=== PATIENT | female | born 1950 | race Caucasian/White ===

== ENCOUNTER → 2016-10-05 | Outpatient (CLI) | payer MEDICARE, BC ==
--- NOTE | 2016-10-08 09:25 | XR ---
EXAMINATION TYPE: XR cervical spine comp DATE OF EXAM: 10/05/2016 9:12 AM COMPARISON: NONE HISTORY: Chronic neck pain TECHNIQUE: Four views are submitted. FINDINGS: The odontoid is intact. There are no compression deformities. The prevertebral soft tissue structur es are within normal limits. Calcification soft tissue the left neck likely related carotid artery. There is moderate to severe degenerative disc disease at C5-6 and C6-C7. Facet arthropathy at levels C3-T1. Foraminal encroachment C5-C6 bilaterally. IMPRESSION: 1. Multilevel degenerative disc disease.
== END | disposition home or self-care (01) ==
LOC: RADXRYALE 08:57
PROVIDERS: ATTEND Family Medicine
DX: M50.30 Other cervical disc degeneration, unspecified cervical region (principal)
CPT/HCPCS: 72050

== ENCOUNTER 2021-08-30 05:02 | Inpatient (IN) | payer MEDICARE, BC ==
[2021-08-30 05:14] LABS: Glucose,Whole Blood 238 mg/dL (75-99)
[2021-08-30] MEDS ORDERED: ACETAMINOPHEN TAB 325 MG TAB PO STA (05:21)
--- NOTE | 2021-08-30 05:26 | ED ---
Altered Mental Status HPI - General Stated Complaint: Possible Stroke Time Seen by Provider: 08/30/21 05:14 Source: patient, EMS Mode of arrival: EMS Limitations: altered mental status - History of Present Illness Initial Comments: This patient is a 71-year-old woman transferred here from retirement by ambulance to be evaluated for altered mental status. Patient reportedly had last been checked around midnight. When she was checked this morning, it appeared that the patient had vomited during night, and they felt that she was initially not responding. On arrival here, when I asked the patient if she is having pain or dyspnea she states no to both of these. She did complain of some back pain and requested Tylenol. She was denying nausea on arrival. She could recognize that she was in the hospital. The history is otherwise limited. MD Complaint: altered mental status -: hour(s) Associated Symptoms: nausea/vomiting - Related Data Allergies Allergy/AdvReac Type Severity Reaction Status Date / Time codeine Allergy Unknown Verified 08/30/21 06:01 morphine Allergy Unknown Verified 08/30/21 06:01 Penicillins Allergy Unknown Verified 08/30/21 06:01 Review of Systems ROS Statement: Those systems with pertinent positive or pertinent negative responses have been documented in the HPI. ROS Other: All systems not noted in ROS Statement are negative. Limitations: ROS unobtainable due to patients medical condition (Altered mental status) Respiratory: Denies: dyspnea Cardiovascular: Denies: chest pain Gastrointestinal: Reports: as per HPI, vomiting. Denies: abdominal pain Musculoskeletal: Reports: back pain Neurological: Denies: headache, weakness Past Medical History Past Medical History: CVA/TIA, Diabetes Mellitus Additional Past Medical History / Comment(s): hx of aphasia History of Any Multi-Drug Resistant Organisms: None Reported Past Psychological History: No Psychological Hx Reported Smoking Status: Never smoker Past Alcohol Use History: None Reported Past Drug Use History: None Reported General Exam Limitations: altered mental status General appearance: alert, in no apparent distress Head exam: Present: atraumatic, normocephalic Eye exam: Present: normal appearance, PERRL, EOMI. Absent: scleral icterus, conjunctival injection ENT exam: Present: mucous membranes dry Neck exam: Present: normal inspection, full ROM. Absent: tenderness Respiratory exam: Present: normal lung sounds bilaterally. Absent: respiratory distress, wheezes, rales, rhonchi, stridor Cardiovascular Exam: Present: regular rate, normal rhythm, normal heart sounds. Absent: systolic murmur, diastolic murmur, rubs, gallop GI/Abdominal exam: Present: soft. Absent: distended, tenderness, guarding, rebound, rigid, mass Extremities exam: Present: normal inspection, normal capillary refill. Absent: pedal edema, calf tenderness Neurological exam: Present: alert, other (The patient is moving 4 extremities symmetrically area no sensory deficit to light touch exam.). Absent: oriented X3 (Patient is oriented to person and recognizes that she is in the hospital. Could not state the date.) Skin exam: Present: warm, dry, intact, normal color. Absent: rash Course Vital Signs 08/30/21 05:17 Temperature 97.7 F Pulse Rate 112 H Respiratory 16 Rate Blood Pressure 118/59 O2 Sat by Pulse 98 Oximetry Medical Decision Making - Lab Data Result diagrams: 08/30/21 05:28 Lab Results 08/30/21 08/30/21 08/30/21 Range/Units 05:12 05:28 05:28 Sodium 134 L (137-145) mmol/L Potassium 5.9 H (3.5-5.1) mmol/L Chloride 102 (98-107) mmol/L Carbon Dioxide 15 L (22-30) mmol/L Anion Gap 17 mmol/L BUN 52 H (7-17) mg/dL Creatinine 4.84 H (0.52-1.04) mg/dL Est GFR (CKD-EPI)AfAm 10 (>60 ml/min/1.73 sqM) Est GFR (CKD-EPI)NonAf 8 (>60 ml/min/1.73 sqM) Glucose 262 H (74-99) mg/dL POC Glucose (mg/dL) 238 H (75-99) mg/dL POC Glu [employer] ID Olya Almaraz Calcium 9.5 (8.4-10.2) mg/dL Total Bilirubin 0.7 (0.2-1.3) mg/dL AST 24 (14-36) U/L ALT 13 (4-34) U/L Alkaline Phosphatase 167 H (38-126) U/L Troponin I <0.012 (0.000-0.034) ng/mL Total Protein 7.0 (6.3-8.2) g/dL Albumin 3.3 L (3.5-5.0) g/dL Coronavirus (PCR) (Not Detectd) 08/30/21 Range/Units 05:28 Sodium (137-145) mmol/L Potassium (3.5-5.1) mmol/L Chloride (98-107) mmol/L Carbon Dioxide (22-30) mmol/L Anion Gap mmol/L BUN (7-17) mg/dL Creatinine (0.52-1.04) mg/dL Est GFR (CKD-EPI)AfAm (>60 ml/min/1.73 sqM) Est GFR (CKD-EPI)NonAf (>60 ml/min/1.73 sqM) Glucose (74-99) mg/dL POC Glucose (mg/dL) (75-99) mg/dL POC Glu [employer] ID Calcium (8.4-10.2) mg/dL Total Bilirubin (0.2-1.3) mg/dL AST (14-36) U/L ALT (4-34) U/L Alkaline Phosphatase (38-126) U/L Troponin I (0.000-0.034) ng/mL Total Protein (6.3-8.2) g/dL Albumin (3.5-5.0) g/dL Coronavirus (PCR) Not Detected (Not Detectd) - EKG Data -: EKG Interpreted by Me EKG shows normal: sinus rhythm, axis (Normal), intervals (Normal), QRS complexes (Old inferior infarct.), ST-T waves (Normal) Rate: tachycardia (Rate 112 bpm) Interpretation: LVH (Voltage criteria), other (Possible old anterior infarct.) Disposition Clinical Impression: Altered mental status, Acute kidney injury Disposition: ADMITTED IP TO THIS [facility] Condition: Serious Instructions (If sedation given, give patient instructions): Altered Mental Status (ED) Is patient prescribed a controlled substance at d/c from ED?: No Referrals: Ondina Alvares DO [Primary Care Provider] - 1-2 days
--- NOTE | 2021-08-30 05:50 | XR ---
EXAMINATION TYPE: XR chest 1V portable DATE OF EXAM: 08/30/2021 COMPARISON: NONE HISTORY: Altered mental status TECHNIQUE: Single view FINDINGS: There is poor inspiration and elevation of the diaphragms. There is no heart failure. Lungs are clear consolidation. There are chest leads. IMPRESSION: Poor inspiration. No heart failure.
--- NOTE | 2021-08-30 05:53 | CT ---
EXAMINATION TYPE: CT brain wo con DATE OF EXAM: 08/30/2021 COMPARISON: None HISTORY: AMS. rule out stroke. no prior on PACS CT DLP: 1078.4 mGycm Automated exposure control for dose reduction was used. There is cerebral cortical atrophy. There is no mass effect nor midline shift. There is no sign of in tracranial hemorrhage. There is 5 mm hypodensity anterior left internal capsule. Calvarium is intact. The skull base is intact. IMPRESSION: Cerebral atrophy. Small lacunar infarct left internal capsule. No acute abnormality.
[2021-08-30 06:08] LABS: Albumin 3.3 g/dL (3.5-5.0); Calcium 9.5 mg/dL (8.4-10.2); Potassium 5.9 mmol/L (3.5-5.1); Total Bilirubin 0.7 mg/dL (0.2-1.3)
[2021-08-30] MEDS ORDERED: NALOXONE 0.4 MG/ML 1 ML VIAL IV PRN (06:36)
[2021-08-30 06:39] LABS: HCT 35.5 % (34.0-46.0); HGB 11.4 gm/dL (11.4-16.0); MCH 29.5 pg (25.0-35.0); MCHC 32.1 g/dL (31.0-37.0); MCV 91.9 fL (80.0-100.0); Mean Platelet Volume 9.8; Platelet Count 399 k/uL (150-450); RBC 3.86 m/uL (3.80-5.40); RDW 15.5 % (11.5-15.5); WBC 26.7 k/uL (3.8-10.6)
[2021-08-30] MEDS ORDERED: ACETAMINOPHEN TAB 325 MG TAB PO PRN (06:42)
[2021-08-30] MEDS ORDERED: ONDANSETRON 4 MG/2 ML VIAL IVP PRN (06:42)
[2021-08-30] MEDS ORDERED: SODIUM CHLORIDE 0.9% 1,000 ML IV SCH (06:45)
[2021-08-30] MEDS ORDERED: SODIUM CHLORIDE 0.9% 1,000 ML IV ONE (06:50)
[2021-08-30 07:47] LABS: Band Neutrophils % 9 %; Lymphocytes # (M) 6.41 k/uL (1.0-4.8); Metamyelocytes # (M) 0.27 k/uL (0); Metamyelocytes % 1 %; Monocytes # (M) 0.53 k/uL (0-1.0); Neutrophils % (M) 66 %; Nucleated Red Blood Cells 0 /100 WBC (0-0); Total Cells Counted 200
[2021-08-30 07:48] LABS: Rouleaux Present
[2021-08-30 08:04] LABS: Appearance,Urine Turbid (Clear); Bacteria,Urine Occasional /hpf; Bilirubin,Urine Negative (Negative); Blood,Urine Large (Negative); Color,Urine Red; Glucose,Urine (UA) Negative (Negative); Ketones,Urine Trace (Negative); Leukocyte Esterase,Urine Large (Negative); Mucus,Urine Occasional /hpf; Nitrite,Urine Negative (Negative); PH, Urine 8.5 (5.0-8.0); Protein,Urine 3+ (Negative); RBC,Urine >182 /hpf (0-5); Specific Gravity,Urine 1.018 (1.001-1.035); Urobilinogen,Urine <2.0 mg/dL (<2.0); WBC,Urine 132 /hpf (0-5)
[2021-08-30] MEDS ORDERED: FAMOTIDINE 20 MG TAB PO SCH (09:00)
[2021-08-30] MEDS ORDERED: DEXTROSE 50% SYRINGE 50 ML IVP STA (12:06)
[2021-08-30] MEDS ORDERED: INSULIN REGULAR 100 UNIT/ML VIAL (IV) IV ONE (12:06)
[2021-08-30] MEDS ORDERED: SENNOSIDES 8.6 MG TAB PO PRN (12:06)
[2021-08-30] MEDS ORDERED: SODIUM BICARB 8.4% 50 ML SYR (1 MEQ/ML) IV STA (12:06)
--- NOTE | 2021-08-30 12:12 | P.NPCON ---
History of Present Illness - Reason for Consult acute renal failure - History of Present Illness Reason for consultation: Acute kidney injury History of present illness: 71-year-old female seen in renal consultation for acute kidney injury. Patient presents from an extended care facility due to altered mental status. Patient had episode of vomiting last night and was unresponsive and also seek recent to the hospital. She is currently resting in bed and is not a reliable historian. She is not answering questions. Creatinine was 4.84 on admission. Her creatinine in June 2020 was 1.0. Potassium was elevated at 5.9. Blood pressure is stable. No fever. She tested negative for coronavirus. Currently receiving normal saline at 130 mL an hour. She also received a liter bolus in the ER. She does have long-standing history of diabetes. She was also on losartan outpatient. She was on Lasix as well. I don't see any nonsteroidals in her home medication list. She currently has a Vargas catheter. Nonoliguric. Vital signs are stable. General: Resting in bed. HEENT: Head exam is unremarkable. LUNGS: Breath sounds decreased. HEART: Rate and Rhythm are regular. ABDOMEN: Soft, no distention. EXTREMITITES: 1+ edema. Past Medical History Past Medical History: Atrial Fibrillation, CVA/TIA, Diabetes Mellitus, Hypertension Additional Past Medical History / Comment(s): CVA with slight R sided weakness/past aphasia/dysphagia but staff at [facility] states this is not a current problem, IDDM type II, neuropathy bilateral feet, chronic cervical pain/DDD, back pain, UTIs, muscle weakness, past metabolic encephalopathy and acute kidney failure. History of Any Multi-Drug Resistant Organisms: None Reported Additional Past Surgical History / Comment(s): Gallbladder drain per pt. Past Anesthesia/Blood Transfusion Reactions: No Reported Reaction Smoking Status: Never smoker - Past Family History Mother Family Medical History: No Reported History Additional Family Medical History / Comment(s): Mother was healthy Father Family Medical History: Cancer Additional Family Medical History / Comment(s): Prostate cancer. Medications and Allergies Home Medications Medication Instructions Recorded Confirmed Type Acetaminophen [Tylenol] 325 mg PO TID@0700,1300,1900 08/30/21 08/30/21 History Aspirin 81 mg PO DAILY 08/30/21 08/30/21 History Atorvastatin [Lipitor] 40 mg PO HS@199908/30/21 08/30/21 History Cyanocobalamin [Vitamin B-12] 500 mcg PO DAILY 08/30/21 08/30/21 History Dermaceptin 1 applic TOPICAL TID 08/30/21 08/30/21 History Febuxostat [Uloric] 80 mg PO DAILY 08/30/21 08/30/21 History Ferrous Sulfate [Feosol] 325 mg PO DAILY 08/30/21 08/30/21 History Furosemide [Lasix] 20 mg PO DAILY@0700 08/30/21 08/30/21 History INSULIN ASPART (NovoLOG) [NovoLOG See Protocol SQ ACHS 08/30/21 08/30/21 History (formulary)] Insulin Detemir [Levemir Flextouch 15 units SQ DAILY 08/30/21 08/30/21 History Pen] Losartan Potassium [Cozaar] 100 mg PO DAILY 08/30/21 08/30/21 History Magnesium Hydroxide [Milk of 2,400 mg PO DAILY PRN 08/30/21 08/30/21 History Magnesia] Menthol [Biofreeze] 1 applic TOPICAL BID 08/30/21 08/30/21 History Metoprolol Tartrate [Lopressor] 50 mg PO TID@0700,1300,1900 08/30/21 08/30/21 History Pantoprazole Sodium [Protonix] 40 mg PO DAILY@0700 08/30/21 08/30/21 History Potassium Chloride [Klor-Con 10 ER] 10 meq PO DAILY@0700 08/30/21 08/30/21 History Povidone-Iodine [Betadine] 1 applic TOPICAL HS 08/30/21 08/30/21 History Prostat 30 ml PO DAILY 08/30/21 08/30/21 History Sennosides [Senna] 8.6 mg PO DAILY PRN 08/30/21 08/30/21 History amLODIPine [Norvasc] 10 mg PO HS@199908/30/21 08/30/21 History metFORMIN HCL [Glucophage] 1,000 mg PO BID@0700,1600 08/30/21 08/30/21 History Allergies Allergy/AdvReac Type Severity Reaction Status Date / Time codeine Allergy Unknown Verified 08/30/21 06:52 morphine Allergy Unknown Verified 08/30/21 06:52 Penicillins Allergy Unknown Verified 08/30/21 06:52 Physical Exam Vitals: Vital Signs Temp Pulse Pulse Resp BP BP Pulse Ox 08/30/21 09:06 97.9 F 101 H 18 141/74 97 08/30/21 08:00 108 H 18 130/83 98 08/30/21 07:16 106 H 16 130/70 96 08/30/21 05:17 97.7 F 112 H 16 118/59 98 Intake and Output 08/29/21 08/30/21 08/30/21 22:59 06:59 14:59 Output Total 800 Balance -800 Output: Urine 800 Uretheral (Vargas) 800 Other: Voiding Method Indwelling Catheter Weight 78 kg 78 kg Results - Lab Results Most recent lab results Calcium 9.5 mg/dL (8.4-10.2) 08/30/21 05:28 08/30/21 05:28 08/30/21 05:28 Assessment and Plan Plan: Assessment: 1. Acute kidney injury secondary to ATN secondary to hypovolemia from vomiting and use of losartan. Creatinine 4.84 on admission. Creatinine was 1.0 in Dece mber 2020. 2. Hyperkalemia secondary to acute kidney injury, metabolic acidosis and losartan. 3. Metabolic acidosis secondary to acute kidney injury and metformin. 4. Diabetes mellitus. 5. Pyuria. Plan: Stop normal saline. Start bicarb drip to be run at 75 mL an hour. 10 units IV regular insulin with an appendectomy D50 now. Repeat potassium level this afternoon. Continue to monitor renal function and urine output. Check renal ultrasound. 1 g Rocephin IV now. Defer further management to primary team. Follow-up cultures. Thank you for the consultation. I will continue to follow the patient with you during her hospital stay.
--- NOTE | 2021-08-30 13:49 | P.HPIM ---
History of Present Illness 71-year-old female came in with altered mental status found to have acute renal failure patient baseline creatinine is around 1 patient present creatinine is 4.84 patient had history of stroke in the past mostly bedbound. Patient has 1/5 strength in bilateral lower extremities. Patient has bilateral lower extremity edema. Echocardiogram is not available at this time and this hospital system. Patient also has admitted potassium. Patient is alert oriented times close to 2 when I evaluated the patient although she thought it's 2026. Patient is negative for COVID-19. Patient is receiving IV normal saline at 1 30 mL per ho ur. Patient had an episode of nausea and vomiting last night. Patient is on Lasix. Patient is not on any nonsteroidal anti-inflammatory medications. REVIEW OF SYSTEMS: Patient is not a reliable historian CONSTITUTIONAL: No fever, no malaise, no fatigue. HEENT: No recent visual problems or hearing problems. Denied any sore throat. CARDIOVASCULAR: No chest pain, orthopnea, PND, no palpitations, no syncope. PULMONARY: No shortness of breath, no cough, no hemoptysis. GASTROINTESTINAL: No diarrhea, no nausea, no vomiting, no abdominal pain. NEUROLOGICAL: No headaches, no weakness, no numbness. HEMATOLOGICAL: Denies any bleeding or petechiae. GENITOURINARY: Denies any burning micturition, frequency, or urgency. MUSCULOSKELETAL/RHEUMATOLOGICAL: Denies any joint pain, swelling, or any muscle pain. ENDOCRINE: Denies any polyuria or polydipsia. The rest of the 14-point review of systems is negative. PHYSICAL EXAMINATION: GENERAL: The patient is alert and oriented x3, not in any acute distress. Well developed, well nourished. HEENT: Pupils are round and equally reacting to light. EOMI. No scleral icterus. No conjunctival pallor. Normocephalic, atraumatic. No pharyngeal erythema. No thyromegaly. CARDIOVASCULAR: S1 and S2 present. No murmurs, rubs, or gallops. PULMONARY: Chest is clear to auscultation, no wheezing or crackles. ABDOMEN: Soft, nontender, nondistended, normoactive bowel sounds. No palpable organomegaly. MUSCULOSKELETAL: No joint swelling or deformity. EXTREMITIES: No cyanosis, clubbing, or pedal edema. NEUROLOGICAL: Gross neurological examination did not reveal any focal deficits. SKIN: No rashes. Assessment and plan -Acute to renal failure: Probably secondary to acute tubular Necrosis from hypovolemia. Patient does have proteinuria, nephrology was consulted and the ultrasound of the kidney was ordered. Patient creatinine is 4.84 and patient baseline is around 1. A she also had urinary retention placement of Vargas catheter yielded around 800 mL of bloody urine -Hyperkalemia secondary to renal failure and losartan losartan is being held at this time continue with IV fluids -Mild hematuria-Anion gap and non-anion gap metabolic acidosis secondary to acute renal failure, lactic acidosis from metformin which is being held And-type 2 diabetes mellitus: Patient will be started on sliding scale insulin -Possibly of urinary tract infection cannot be ruled out because of hematuria, significantly abnormal urine confusion and leukocytosis. Patient may have sepsis secondary to UTI -Leukocytosis appear to be secondary to urinary tract infection continue with Rocephin-Hyponatremia secondary to renal dysfunction -History of stroke with some baseline vascular dementia. -Generalized medical debility secondary to previous stroke patient is mostly bedbound and a long-term longterm resident -Hypertension DVT prophylaxis: Subcutaneous heparin Past Medical History Past Medical History: Atrial Fibrillation, CVA/TIA, Diabetes Mellitus, Hypertension Additional Past Medical History / Comment(s): CVA with slight R sided weakness/past aphasia/dysphagia but staff at [facility] states this is not a current problem, IDDM type II, neuropathy bilateral feet, chronic cervical pain/DDD, back pain, UTIs, muscle weakness, past metabolic encephalopathy and acute kidney failure. History of Any Multi-Drug Resistant Organisms: None Reported Additional Past Surgical History / Comment(s): Gallbladder drain per pt. Past Anesthesia/Blood Transfusion Reactions: No Reported Reaction Smoking Status: Never smoker - Past Family History Mother Family Medical History: No Reported History Additional Family Medical History / Comment(s): Mother was healthy Father Family Medical History: Cancer Additional Family Medical History / Comment(s): Prostate cancer. Medications and Allergies Home Medications Medication Instructions Recorded Confirmed Type Acetaminophen [Tylenol] 325 mg PO TID@0700,1300,1900 08/30/21 08/30/21 History Aspirin 81 mg PO DAILY 08/30/21 08/30/21 History Atorvastatin [Lipitor] 40 mg PO HS@199908/30/21 08/30/21 History Cyanocobalamin [Vitamin B-12] 500 mcg PO DAILY 08/30/21 08/30/21 History Dermaceptin 1 applic TOPICAL TID 08/30/21 08/30/21 History Febuxostat [Uloric] 80 mg PO DAILY 08/30/21 08/30/21 History Ferrous Sulfate [Feosol] 325 mg PO DAILY 08/30/21 08/30/21 History Furosemide [Lasix] 20 mg PO DAILY@0700 08/30/21 08/30/21 History INSULIN ASPART (NovoLOG) [NovoLOG See Protocol SQ ACHS 08/30/21 08/30/21 History (formulary)] Insulin Detemir [Levemir Flextouch 15 units SQ DAILY 08/30/21 08/30/21 History Pen] Losartan Potassium [Cozaar] 100 mg PO DAILY 08/30/21 08/30/21 History Magnesium Hydroxide [Milk of 2,400 mg PO DAILY PRN 08/30/21 08/30/21 History Magnesia] Menthol [Biofreeze] 1 applic TOPICAL BID 08/30/21 08/30/21 History Metoprolol Tartrate [Lopressor] 50 mg PO TID@0700,1300,1900 08/30/21 08/30/21 History Pantoprazole Sodium [Protonix] 40 mg PO DAILY@0700 08/30/21 08/30/21 History Potassium Chloride [Klor-Con 10 ER] 10 meq PO DAILY@0700 08/30/21 08/30/21 History Povidone-Iodine [Betadine] 1 applic TOPICAL HS 08/30/21 08/30/21 History Prostat 30 ml PO DAILY 08/30/21 08/30/21 History Sennosides [Senna] 8.6 mg PO DAILY PRN 08/30/21 08/30/21 History amLODIPine [Norvasc] 10 mg PO HS@199908/30/21 08/30/21 History metFORMIN HCL [Glucophage] 1,000 mg PO BID@0700,1600 08/30/21 08/30/21 History Allergies Allergy/AdvReac Type Severity Reaction Status Date / Time codeine Allergy Unknown Verified 08/30/21 06:52 morphine Allergy Unknown Verified 08/30/21 06:52 Penicillins Allergy Unknown Verified 08/30/21 06:52 Physical Exam Vitals: Vital Signs Temp Pulse Pulse Resp BP BP Pulse Ox 08/30/21 09:06 97.9 F 101 H 18 141/74 97 08/30/21 08:00 108 H 18 130/83 98 08/30/21 07:16 106 H 16 130/70 96 08/30/21 05:17 97.7 F 112 H 16 118/59 98 Intake and Output 08/29/21 08/30/21 08/30/21 22:59 06:59 14:59 Output Total 800 Balance -800 Output: Urine 800 Uretheral (Vargas) 800 Other: Voiding Method Indwelling Catheter Weight 78 kg 78 kg Results CBC & Chem 7: 08/30/21 05:28 08/30/21 05:28 Labs: Abnormal Lab Results - Last 24 Hours (Table) 08/30/21 08/30/21 08/30/21 Range/Units 05:12 05:28 05:28 WBC 26.7 H (3.8-10.6) k/uL Neutrophils # (Manual) 20.00 H (1.3-7.7) k/uL Lymphocytes # (Manual) 6.41 H (1.0-4.8) k/uL Metamyelocytes # (Man) 0.27 H (0) k/uL Sodium 134 L (137-145) mmol/L Potassium 5.9 H (3.5-5.1) mmol/L Carbon Dioxide 15 L (22-30) mmol/L BUN 52 H (7-17) mg/dL Creatinine 4.84 H (0.52-1.04) mg/dL Glucose 262 H (74-99) mg/dL POC Glucose (mg/dL) 238 H (75-99) mg/dL Osmolality (280-301) mosm/kg Alkaline Phosphatase 167 H (38-126) U/L Albumin 3.3 L (3.5-5.0) g/dL Urine Appearance (Clear) Urine pH (5.0-8.0) Urine Protein (Negative) Urine Ketones (Negative) Urine Blood (Negative) Ur Leukocyte Esterase (Negative) Urine RBC (0-5) /hpf Urine WBC (0-5) /hpf Urine Bacteria (None) /hpf Urine Mucus (None) /hpf 08/30/21 08/30/21 Range/Units 05:28 07:31 WBC (3.8-10.6) k/uL Neutrophils # (Manual) (1.3-7.7) k/uL Lymphocytes # (Manual) (1.0-4.8) k/uL Metamyelocytes # (Man) (0) k/uL Sodium (137-145) mmol/L Potassium (3.5-5.1) mmol/L Carbon Dioxide (22-30) mmol/L BUN (7-17) mg/dL Creatinine (0.52-1.04) mg/dL Glucose (74-99) mg/dL POC Glucose (mg/dL) (75-99) mg/dL Osmolality 307 H (280-301) mosm/kg Alkaline Phosphatase (38-126) U/L Albumin (3.5-5.0) g/dL Urine Appearance Turbid H (Clear) Urine pH 8.5 H (5.0-8.0) Urine Protein 3+ H (Negative) Urine Ketones Trace H (Negative) Urine Blood Large H (Negative) Ur Leukocyte Esterase Large H (Negative) Urine RBC >182 H (0-5) /hpf Urine WBC 132 H (0-5) /hpf Urine Bacteria Occasional H (None) /hpf Urine Mucus Occasional H (None) /hpf Microbiology - Last 24 Hours (Table) 08/30/21 07:31 Urine Culture - Preliminary Urine,Catheterized Thrombosis Risk Factor Assmnt - Choose All That Apply Any of the Below Risk Factors Present?: Yes Each Factor Represents 1 point: Obesity (BMI >25) Other Risk Factors: Yes Each Risk Factor Represents 2 Points: Age 61-74 years Other congenital or acquired thrombophilia - If yes, enter type in comment: No Thrombosis Risk Factor Assessment Total Risk Factor Score: 3 Thrombosis Risk Factor Assessment Level: Moderate Risk
--- NOTE | 2021-08-30 14:21 | US ---
EXAMINATION TYPE: US kidneys/renal and bladder DATE OF EXAM: 08/30/2021 COMPARISON: NONE CLINICAL HISTORY: anu. EXAM MEASUREMENTS: Right Kidney: 10.3 x 5.4 x 4.5 cm Left Kidney: 9.7 x 4.9 x 4.8 cm Post Void Residual Volume: mL Patient supine, unable to move or cooperate with examiner Incidental finding of ascites, complex area adjacent to vs in liver Right Kidney: very limited visualization shows no gross abnormality Left Kidney: not well seen, shows no gross abnormality Bladder: thickened wall, oreilly seen There is no evidence for hydronephrosis at this point in time. No nephrolithiasis is seen. No marissa s are identified. IMPRESSION: Limited exam. There is no evident hydronephrosis. Despite the presence of a Oreilly catheter there is a pparently fluid within the urinary bladder, correlate for urine returned, I question whether the Fole y catheter is intraluminal. Correlate to exclude cystitis. Ascites. Indeterminate area adjacent to th e liver could be related to dilated bowel or stomach but is indeterminate. CT scan may be of benefit.
[2021-08-30] MEDS: DEXTROSE 5% IN WATER 1,000 ML with SODIUM BICARB (1 MEQ/ML) 150 ML IV SCH (15:41)
[2021-08-30] MEDS: METOPROLOL TARTRATE 50 MG TAB PO SCH ×2 (15:41→17:13)
[2021-08-30] MEDS: ACETAMINOPHEN TAB 325 MG TAB PO SCH ×2 (15:42→17:13)
[2021-08-30] MEDS: FAMOTIDINE 20 MG TAB PO SCH (15:42)
[2021-08-30] MEDS: INSULIN ASPART (NovoLOG) 100 UNIT/ML VIAL SQ SCH ×3 (15:43→21:52)
[2021-08-30 16:55] LABS: Glucose,Whole Blood 222 mg/dL (75-99)
[2021-08-30] MEDS ORDERED: metFORMIN 500 MG TAB PO SCH (17:30)
[2021-08-30] MEDS ORDERED: amLODIPine 10 MG TAB PO SCH (20:00)
[2021-08-30 21:37] LABS: Potassium,Urine Random 36.1 mmol/L (25.0-125.0)
[2021-08-30 21:49] LABS: Glucose,Whole Blood 174 mg/dL (75-99)
[2021-08-30] MEDS: ATORVASTATIN 40 MG TAB PO SCH (21:52)
[2021-08-31] MEDS ORDERED: FUROSEMIDE 20 MG TAB PO SCH (07:00)
[2021-08-31 07:06] LABS: African American GFR (CKD) 17 (>60 ml/min/1.73 sqM); Anion Gap 9 mmol/L; Blood Urea Nitrogen 53 mg/dL (7-17); Calcium 8.4 mg/dL (8.4-10.2); Carbon Dioxide 22 mmol/L (22-30); Chloride 106 mmol/L (98-107); Glucose 182 mg/dL (74-99); Magnesium 1.6 mg/dL (1.6-2.3); Non-African American GFR(CKD) 15 (>60 ml/min/1.73 sqM); Potassium 3.8 mmol/L (3.5-5.1); Sodium 137 mmol/L (137-145)
[2021-08-31] MEDS: DEXTROSE 5% IN WATER 1,000 ML with SODIUM BICARB (1 MEQ/ML) 150 ML IV SCH (07:34)
[2021-08-31 07:39] LABS: Glucose,Whole Blood 170 mg/dL (75-99)
[2021-08-31] MEDS: ACETAMINOPHEN TAB 325 MG TAB PO SCH ×3 (08:00→20:16)
[2021-08-31] MEDS: INSULIN DETEMIR (LEVEMIR) 100 UNIT/ML SYR SQ SCH (08:01)
[2021-08-31] MEDS: PANTOPRAZOLE 40 MG TABLET PO SCH (08:01)
[2021-08-31] MEDS: FAMOTIDINE 20 MG TAB PO SCH (08:01)
[2021-08-31] MEDS: CYANOCOBALAMIN 500 MCG TAB PO SCH (08:01)
[2021-08-31] MEDS: ASPIRIN 81 MG PO SCH (08:01)
[2021-08-31] MEDS: METOPROLOL TARTRATE 50 MG TAB PO SCH ×4 (08:01→20:16)
[2021-08-31] MEDS: FERROUS SULFATE 325 MG TAB PO SCH (08:01)
[2021-08-31] MEDS: INSULIN ASPART (NovoLOG) 100 UNIT/ML VIAL SQ SCH ×4 (08:02→21:20)
[2021-08-31] MEDS ORDERED: LOSARTAN 50 MG TAB PO SCH (09:00)
[2021-08-31] MEDS ORDERED: Magnesium Replacement Protocol 1 EACH MISC MISCELLANE PRN (09:25)
[2021-08-31] MEDS ORDERED: POTASSIUM CHLORIDE ER 20 MEQ TAB.ER PO STA (09:27)
--- NOTE | 2021-08-31 09:52 | P.PN ---
Subjective Patient is seen in follow-up for acute kidney injury. Renal function improving. Receiving IV fluids. Has a Vargas catheter for urinary retention. Nonoliguric. Resting in bed. Not responding to verbal questions at this time. Vital signs are stable. HEENT: Head exam is unremarkable. LUNGS: Breath sounds decreased. HEART: Rate and Rhythm are regular. ABDOMEN: Soft, no distention. EXTREMITITES: Trace edema. Objective - Vital Signs Vital signs: Vital Signs Temp 97.2 F L 08/31/21 01:43 Pulse 124 H 08/31/21 08:00 Resp 14 08/31/21 08:00 BP 95/65 08/31/21 08:00 Pulse Ox 91 L 08/31/21 08:00 Intake & Output 08/30/21 08/31/21 08/31/21 18:59 06:59 18:59 Intake Total 100 20 Output Total 1250 600 Balance -1150 -580 Weight 78 kg Intake: IV 20 Invasive Line 2 20 Intake, IV Titration 100 Amount cefTRIAXone 1 gm In 100 Sodium Chloride 0.9% 50 ml @ 100 mls/hr IVPB Q24HR [facility] Rx#:[id number] Output: Urine 1250 600 Uretheral (Vargas) 1250 600 Other: Voiding Method Indwelling Catheter Indwelling Catheter - Labs CBC & Chem 7: 08/30/21 05:28 08/31/21 06:16 Labs: Abnormal Lab Results - Last 24 Hours (Table) 08/30/21 08/30/21 08/31/21 Range/Units 16:54 21:42 06:16 BUN 53 H (7-17) mg/dL Creatinine 3.00 H (0.52-1.04) mg/dL Glucose 182 H (74-99) mg/dL POC Glucose (mg/dL) 222 H 174 H (75-99) mg/dL 08/31/21 Range/Units 07:37 BUN (7-17) mg/dL Creatinine (0.52-1.04) mg/dL Glucose (74-99) mg/dL POC Glucose (mg/dL) 170 H (75-99) mg/dL Microbiology - Last 24 Hours (Table) 08/30/21 05:50 Blood Culture - Preliminary Blood No Growth after 24 hours 08/30/21 05:57 Blood Culture Gram Stain - Preliminary Blood Blood Culture - Preliminary Proteus Species 08/30/21 05:57 Blood Culture - Final Blood 08/30/21 07:31 Urine Culture - Preliminary Urine,Catheterized Assessment and Plan Plan: Assessment: 1. Acute kidney injury secondary to ATN secondary to hypovolemia from vomiting and use of losartan. Creatinine 4.84 on admission - 3.0 today. Creatinine was 1.0 in June 2020. 2. Hyperkalemia secondary to acute kidney injury, metabolic acidosis and losartan. Resolved. 3. Metabolic acidosis secondary to acute kidney injury and metformin. Improved with bicarbonate drip. 4. Diabetes mellitus. 5. Proteus bacteremia. UA suggestive of UTI. 6. Urinary retention status post Vargas catheter placement. No hydronephrosis noted on kidney ultrasound. 7. Hypomagnesemia from poor intake. Being replaced. Plan: Stop bicarb drip. Start normal saline at 75 mL an hour. Continue to monitor renal function and urine output. Follow-up cultures. Add oral bicarb. Hold amlodipine for systolic blood pressure less than 120. Add Flomax.
[2021-08-31] MEDS: SODIUM BICARBONATE TAB 650 MG TAB PO SCH ×2 (10:23→20:16)
[2021-08-31] MEDS: SODIUM CHLORIDE 0.9% 1,000 ML IV SCH ×2 (10:24→23:53)
[2021-08-31] MEDS: MAGNESIUM SULFATE-D5W PMX 1 GM in DEXTROSE/WATER 1 100ML.BAG IVPB SCH ×2 (10:25→12:13)
[2021-08-31 10:40] LABS: Anisocytosis Slight; HCT 30.5 % (34.0-46.0); MCH 28.6 pg (25.0-35.0); MCHC 31.3 g/dL (31.0-37.0); MCV 91.5 fL (80.0-100.0); Mean Platelet Volume 7.7; Platelet Count 226 k/uL (150-450); RBC 3.34 m/uL (3.80-5.40); RDW 16.2 % (11.5-15.5); WBC 5.9 k/uL (3.8-10.6)
[2021-08-31 10:42] LABS: HGB 9.5 gm/dL (11.4-16.0)
--- NOTE | 2021-08-31 10:56 | XR ---
EXAMINATION TYPE: XR chest 1V portable DATE OF EXAM: 08/31/2021 COMPARISON: Chest x-ray 08/30/2021 HISTORY: Hypoxia TECHNIQUE: Single frontal view of the chest is obtained. FINDINGS: Lung volumes are low. Patchy basilar density persists. No evident pneumothorax, patient is rotated. Cardiac mediastinal silhouette is stable. Interstitium is increased. Bones are unchanged. IMPRESSION: Expiratory rotated exam. Probable basilar atelectasis, difficult to exclude pneumonia. T here may be underlying interstitial lung disease. Consider follow-up PA and lateral chest x-ray when stable.
[2021-08-31 11:07] LABS: Band Neutrophils % 15 %; Lymphocytes # (M) 2.54 k/uL (1.0-4.8); Metamyelocytes # (M) 0.12 k/uL (0); Metamyelocytes % 2 %; Monocytes # (M) 0.18 k/uL (0-1.0); Neutrophils % (M) 38 %; Nucleated Red Blood Cells 0 /100 WBC (0-0); Total Cells Counted 200; Toxic Vacuolation Present
[2021-08-31 11:45] LABS: Glucose,Whole Blood 155 mg/dL (75-99)
--- NOTE | 2021-08-31 14:13 | P.PN ---
Subjective Progress Note Date: 08/31/21 71-year-old female came in with altered mental status found to have acute renal failure patient baseline creatinine is around 1 patient present creatinine is 4.84 patient had history of stroke in the past mostly bedbound. Patient has 1/5 strength in bilateral lower extremities. Patient has bilateral lower extremity edema. Echocardiogram is not available at this time and this hospital system. Patient also has admitted potassium. Patient is alert oriented times close to 2 when I evaluated the patient although she thought it's 2026. Patient is negative for COVID-19. Patient is receiving IV normal saline at 1 30 mL per hour. Patient had an episode of nausea and vomiting last night. Patient is on Lasix. Patient is not on any nonsteroidal anti-inflammatory medications. 08/31/2021 Patient fell today resting bed. She is only arousable to painful saline with sternal rub even with that there was minimal verbal response. She seems fatigued. Brain CT on admission yesterday morning dose show cerebral atrophy with small lacunar infarct left internal capsule. No acute abnormality. Blood cultures are showing Proteus species, continues with IV Rocephin 2 g every 24 hours while cultures are finalized repeat blood cultures were taken today. Urine culture is preliminary. Labs today show white count 5.9, hemoglobin 9.5, sodium 137, potassium 3.8, BUN 53, creatinine 3, glucose 150s, hemoglobin A1c 6.8. Magnesium 1.6. Patient received 2 bags of magnesium today, losartan discontinued, Lasix discontinued, patient on 0.9 at 75 with oral sodium bicarbonate. Repeat chest x-ray today shows probable basilar atelectasis difficult to exclude pneumonia there may be underlying interstitial lung disease. Vitals, 91% on room air, heart rate 124, blood pressure 95/65 and she is afebrile. She is being followed by nephrology and consult with ID services today for positive blood cultures. Indwelling catheter in place, hematuria seems to be improving. Patient on Flomax for urinary retention. ROS Unable to complete a full review of systems due to patient being lethargic. PHYSICAL EXAMINATION: GENERAL: The patient is alert and oriented x1, lethargic. Well developed, well nourished. HEENT: Pupils are round and equally reacting to light. EOMI. No scleral icterus. No conjunctival pallor. Normocephalic, atraumatic. No pharyngeal erythema. No thyromegaly. CARDIOVASCULAR: S1 and S2 present. No murmurs, rubs, or gallops. PULMONARY: Chest is clear to auscultation, no wheezing or crackles. ABDOMEN: Soft, nontender, nondistended, normoactive bowel sounds. No palpable organomegaly. MUSCULOSKELETAL: No joint swelling or deformity. EXTREMITIES: No cyanosis, clubbing, or pedal edema. NEUROLOGICAL: Unable to complete full neurological exam due to lethargy SKIN: No rashes. Assessment and plan -Acute renal failure: Probably secondary to acute tubular Necrosis from hypovolemia. Patient does have proteinuria, nephrology consult, with hematuria and retention -Bacteremia with proteus species on IV rocephin pending finalized cultures, ID consult -Possibility of urinary tract infection cannot be ruled out because of hematuria, significantly abnormal urine confusion and leukocytosis. Patient may have sepsis secondary to UTI, culture is currently pending -Altered mental status secondary to toxic and metabolic encepholapthy multifactorial with component of UTI, bactermia, and acute kidney injury, brain CT showing small lacunar infarct left internal capsule with no acute abnormality -Hyperkalemia secondary to renal failure and losartan, losartan is being held at this time continue with IV fluids -Mild hematuria, will need urology outpatient -Anion gap and non-anion gap metabolic acidosis secondary to acute renal failure, lactic acidosis from metformin which is being held -type 2 diabetes mellitus: Patient will be started on sliding scale insulin -Leukocytosis, secondary to possible UTI and also bacteremia, resolved at this time, continue with Rocephin -Hyponatremia secondary to renal dysfunction and poor oral intake -History of stroke with some baseline vascular dementia. -Generalized medical debility secondary to previous stroke patient is mostly bedbound and a long-term longterm resident -Hypertension DVT prophylaxis: Subcutaneous heparin GI Prophlyaxis: Protonix FULL CODE Plan Telemetry Oxygen support Continue with IV antibiotics ID consultation Repeat blood cultures taken today Neuro checks Repeat labs in AM Prognosis guarded Objective - Vital Signs Vital signs: Vital Signs Temp 98 F 08/31/21 08:00 Pulse 124 H 08/31/21 08:00 Resp 14 08/31/21 08:00 BP 95/65 08/31/21 08:00 Pulse Ox 91 L 08/31/21 08:00 Intake & Output 08/30/21 08/31/21 08/31/21 18:59 06:59 18:59 Intake Total 100 20 Output Total 1250 600 Balance -1150 -580 Weight 78 kg Intake: IV 20 Invasive Line 2 20 Intake, IV Titration 100 Amount cefTRIAXone 1 gm In 100 Sodium Chloride 0.9% 50 ml @ 100 mls/hr IVPB Q24HR [facility] Rx#:[id number] Output: Urine 1250 600 Uretheral (Vargas) 1250 600 Other: Voiding Method Indwelling Catheter Indwelling Catheter Indwelling Catheter - Labs CBC & Chem 7: 08/31/21 10:08 08/31/21 06:16 Labs: Abnormal Lab Results - Last 24 Hours (Table) 08/30/21 08/30/21 08/31/21 Range/Units 16:54 21:42 06:16 RBC (3.80-5.40) m/uL Hgb (11.4-16.0) gm/dL Hct (34.0-46.0) % RDW (11.5-15.5) % Metamyelocytes # (Man) (0) k/uL BUN (7-17) mg/dL Creatinine (0.52-1.04) mg/dL Glucose (74-99) mg/dL POC Glucose (mg/dL) 222 H 174 H (75-99) mg/dL Hemoglobin A1c 6.8 H (0.0-6.0) % 08/31/21 08/31/21 08/31/21 Range/Units 06:16 07:37 10:08 RBC 3.34 L (3.80-5.40) m/uL Hgb 9.5 L D (11.4-16.0) gm/dL Hct 30.5 L (34.0-46.0) % RDW 16.2 H (11.5-15.5) % Metamyelocytes # (Man) 0.12 H (0) k/uL BUN 53 H (7-17) mg/dL Creatinine 3.00 H (0.52-1.04) mg/dL Glucose 182 H (74-99) mg/dL POC Glucose (mg/dL) 170 H (75-99) mg/dL Hemoglobin A1c (0.0-6.0) % 08/31/21 Range/Units 11:43 RBC (3.80-5.40) m/uL Hgb (11.4-16.0) gm/dL Hct (34.0-46.0) % RDW (11.5-15.5) % Metamyelocytes # (Man) (0) k/uL BUN (7-17) mg/dL Creatinine (0.52-1.04) mg/dL Glucose (74-99) mg/dL POC Glucose (mg/dL) 155 H (75-99) mg/dL Hemoglobin A1c (0.0-6.0) % Microbiology - Last 24 Hours (Table) 08/30/21 05:57 Blood Culture Gram Stain - Preliminary Blood Blood Culture - Preliminary Proteus Species 08/30/21 05:50 Blood Culture - Preliminary Blood No Growth after 24 hours 08/30/21 05:57 Blood Culture - Final Blood 08/30/21 07:31 Urine Culture - Preliminary Urine,Catheterized Assessment and Plan Time with Patient: Greater than 30
[2021-08-31 15:05] VITALS: BMI 29.5
[2021-08-31 16:57] LABS: Glucose,Whole Blood 94 mg/dL (75-99)
[2021-08-31] MEDS: TAMSULOSIN 0.4 MG CAP.ER.24H PO SCH (17:11)
[2021-08-31] MEDS: ATORVASTATIN 40 MG TAB PO SCH (20:16)
[2021-08-31 20:49] LABS: Glucose,Whole Blood 55 mg/dL (75-99)
[2021-08-31] MEDS ORDERED: DEXTROSE 50% SYRINGE 50 ML IVP ONE (21:02)
[2021-08-31] MEDS ORDERED: DEXTROSE 50% SYRINGE 50 ML IVP STA (21:06)
[2021-08-31] MEDS ORDERED: DEXTROSE 5% IN WATER 225 ML IV ONE (21:30)
[2021-08-31 21:31] LABS: Glucose,Whole Blood 137 mg/dL (75-99)
[2021-08-31 22:32] LABS: Glucose,Whole Blood 76 mg/dL (75-99)
[2021-08-31 22:50] LABS: Glucose,Whole Blood 77 mg/dL (75-99)
--- NOTE | 2021-08-31 23:25 | P.CONS ---
History of Present Illness - Reason for Consult Consult date: 08/31/21 bacteremia Requesting physician: Arminda Caro - Chief Complaint unresponsive x 1 day - History of Present Illness History of present illness : Patient is 71-year-old female was brought into the ER yesterday morning from a retirement for evaluation of mental status changes apparently she was last checked around midnight and was doing okay in the morning the patient appeared to be altered and had vomited during the night and the patient was not responding or the symptom the patient was brought into the ER on arrival to the ER the patient was afebrile did have a low-grade fever of 99.6 F yesterday patient has been tachycardic did have white count of 26.7 with a left shift did have elevated BUN and creatinine level exams are normal urine has been positive fernandez PCR was negative patient did have a chest x-ray poor inspiration no heart failure repeat x-ray expiratory rotated exam basilar atelectasis difficulty exclude pneumonia patient did have positive blood cultures with gram-negative bacilli urine is currently positive as well patient to have a penicillin allergy currently is being treated with the Rocephin infectious disease was consulted because of bacteremia most of the information has been obtained from review the chart as the patient is currently sleepy lethargic and cannot provide any history Review of system: Positive point has been mentioned in HPI complete review could not be obtained because of underlying mental status Past medical history : Reviewed, documented below Past surgical history : Reviewed, documented below Social history: Reviewed, documented below Medications: Reviewed, as documented below EXAMINATION: Vital sigans= Reviewed and documented below GENERAL DESCRIPTION: Elderly female lying in bed, no distress. No tachypnea or accessory muscle of respiration use. HEENT: Shows Pallor , no scleral icterus. Oral mucous membrane is dry. NECK: Trachea central, no thyromegaly. LUNGS: Unlabored breathing. Clear to auscultation anteriorly. No wheeze or crackle. HEART: S1, S2, regular rate and rhythm. ABDOMEN: Soft, no tenderness , guarding or rigidity EXTREMITIES: No edema of feet. SKIN: No rash, no masses palpable. NEUROLOGICAL: The patient is lethargic orientation could not be determined LABS AND RADIOLOGY: Reviewed results see below Assessment : 1-Patient presented to hospital with an episode of unresponsiveness and this patient have a vomited before presentation to the hospital now with evidence of gram-negative bacteremia source likely complicated UTI with significantly positive UA. 2patient with a penicillin allergy that would limit the number of antibiotics safe to use Plan: 1-Rocephin 2 g daily to continue while waiting for sensitivity to finalize 2-gentle IV fluid We will follow on clinical condition and cultures to further adjust medication if needed Thank you for this consultation we will follow the patient along with you Past Medical History Past Medical History: Atrial Fibrillation, CVA/TIA, Diabetes Mellitus, Hypertension Additional Past Medical History / Comment(s): CVA with slight R sided weak ness/past aphasia/dysphagia but staff at [facility] states this is not a current problem, IDDM type II, neuropathy bilateral feet, chronic cervical pain/DDD, back pain, UTIs, muscle weakness, past metabolic encephalopathy and acute kidney failure. History of Any Multi-Drug Resistant Organisms: None Reported Additional Past Surgical History / Comment(s): Gallbladder drain per pt. Past Anesthesia/Blood Transfusion Reactions: No Reported Reaction Smoking Status: Never smoker - Past Family History Mother Family Medical History: No Reported History Additional Family Medical History / Comment(s): Mother was healthy Father Family Medical History: Cancer Additional Family Medical History / Comment(s): Prostate cancer. Medications and Allergies Home Medications Medication Instructions Recorded Confirmed Type Acetaminophen [Tylenol] 325 mg PO TID@0700,1300,1900 08/30/21 08/30/21 History Aspirin 81 mg PO DAILY 08/30/21 08/30/21 History Atorvastatin [Lipitor] 40 mg PO HS@2000 08/30/21 08/30/21 History Cyanocobalamin [Vitamin B-12] 500 mcg PO DAILY 08/30/21 08/30/21 History Dermaceptin 1 applic TOPICAL TID 08/30/21 08/30/21 History Febuxostat [Uloric] 80 mg PO DAILY 08/30/21 08/30/21 History Ferrous Sulfate [Feosol] 325 mg PO DAILY 08/30/21 08/30/21 History Furosemide [Lasix] 20 mg PO DAILY@0700 08/30/21 08/30/21 History INSULIN ASPART (NovoLOG) [NovoLOG See Protocol SQ ACHS 08/30/21 08/30/21 History (formulary)] Insulin Detemir [Levemir Flextouch 15 units SQ DAILY 08/30/21 08/30/21 History Pen] Losartan Potassium [Cozaar] 100 mg PO DAILY 08/30/21 08/30/21 History Magnesium Hydroxide [Milk of 2,400 mg PO DAILY PRN 08/30/21 08/30/21 History Magnesia] Menthol [Biofreeze] 1 applic TOPICAL BID 08/30/21 08/30/21 History Metoprolol Tartrate [Lopressor] 50 mg PO TID@0700,1300,1900 08/30/21 08/30/21 History Pantoprazole Sodium [Protonix] 40 mg PO DAILY@0700 08/30/21 08/30/21 History Potassium Chloride [Klor-Con 10 ER] 10 meq PO DAILY@0700 08/30/21 08/30/21 History Povidone-Iodine [Betadine] 1 applic TOPICAL HS 08/30/21 08/30/21 History Prostat 30 ml PO DAILY 08/30/21 08/30/21 History Sennosides [Senna] 8.6 mg PO DAILY PRN 08/30/21 08/30/21 History amLODIPine [Norvasc] 10 mg PO HS@199908/30/21 08/30/21 History metFORMIN HCL [Glucophage] 1,000 mg PO BID@0700,1600 08/30/21 08/30/21 History Allergies Allergy/AdvReac Type Severity Reaction Status Date / Time codeine Allergy Unknown Verified 08/30/21 06:52 morphine Allergy Unknown Verified 08/30/21 06:52 Penicillins Allergy Unknown Verified 08/30/21 06:52 Physical Exam Vitals: Vital Signs Temp Pulse Resp BP BP Pulse Ox 08/31/21 08:00 98 F 124 H 14 95/65 91 L 08/31/21 01:43 97.2 F L 118 H 18 116/76 94 L 08/30/21 22:43 98.1 F 114 H 18 109/70 95 08/30/21 20:47 92 L 08/30/21 19:26 16 Intake and Output 08/31/21 08/31/21 08/31/21 06:59 14:59 22:59 Intake Total 20 Output Total 600 Balance -580 Intake: IV 20 Invasive Line 2 20 Output: Urine 600 Uretheral (Vargas) 600 Other: Voiding Method Indwelling Catheter Weight 78 kg Results CBC & Chem 7: 08/31/21 10:08 02/03/22 21:38 Labs: Abnormal Lab Results - Last 24 Hours (Table) 08/30/21 08/30/21 08/31/21 Range/Units 16:54 21:42 06:16 RBC (3.80-5.40) m/uL Hgb (11.4-16.0) gm/dL Hct (34.0-46.0) % RDW (11.5-15.5) % Metamyelocytes # (Man) (0) k/uL BUN (7-17) mg/dL Creatinine (0.52-1.04) mg/dL Glucose (74-99) mg/dL POC Glucose (mg/dL) 222 H 174 H (75-99) mg/dL Hemoglobin A1c 6.8 H (0.0-6.0) % 08/31/21 08/31/21 08/31/21 Range/Units 06:16 07:37 10:08 RBC 3.34 L (3.80-5.40) m/uL Hgb 9.5 L D (11.4-16.0) gm/dL Hct 30.5 L (34.0-46.0) % RDW 16.2 H (11.5-15.5) % Metamyelocytes # (Man) 0.12 H (0) k/uL BUN 53 H (7-17) mg/dL Creatinine 3.00 H (0.52-1.04) mg/dL Glucose 182 H (74-99) mg/dL POC Glucose (mg/dL) 170 H (75-99) mg/dL Hemoglobin A1c (0.0-6.0) % 08/31/21 Range/Units 11:43 RBC (3.80-5.40) m/uL Hgb (11.4-16.0) gm/dL Hct (34.0-46.0) % RDW (11.5-15.5) % Metamyelocytes # (Man) (0) k/uL BUN (7-17) mg/dL Creatinine (0.52-1.04) mg/dL Glucose (74-99) mg/dL POC Glucose (mg/dL) 155 H (75-99) mg/dL Hemoglobin A1c (0.0-6.0) % Microbiology - Last 24 Hours (Table) 08/30/21 07:31 Urine Culture - Preliminary Urine,Catheterized Gram Neg Bacilli 08/30/21 05:57 Blood Culture Gram Stain - Preliminary Blood Blood Culture - Preliminary Proteus Species 08/30/21 05:50 Blood Culture - Preliminary Blood No Growth after 24 hours 08/30/21 05:57 Blood Culture - Final Blood
[2021-08-31] MEDS: DEXTROSE 10% IN WATER 500 ML in EMPTY BAG 1 BAG IV SCH (23:53)
[2021-09-01 00:45] LABS: Glucose,Whole Blood 82 mg/dL (75-99)
[2021-09-01 02:14] LABS: Glucose,Whole Blood 83 mg/dL (75-99)
[2021-09-01 04:55] LABS: Glucose,Whole Blood 99 mg/dL (75-99)
[2021-09-01] MEDS: DEXTROSE 10% IN WATER 500 ML in EMPTY BAG 1 BAG IV SCH (05:51)
[2021-09-01 07:29] LABS: Glucose,Whole Blood 120 mg/dL (75-99)
[2021-09-01] MEDS: INSULIN ASPART (NovoLOG) 100 UNIT/ML VIAL SQ SCH ×4 (08:53→21:11)
[2021-09-01] MEDS: PANTOPRAZOLE 40 MG TABLET PO SCH (09:10)
[2021-09-01] MEDS: FAMOTIDINE 20 MG TAB PO SCH (09:10)
[2021-09-01] MEDS: SODIUM BICARBONATE TAB 650 MG TAB PO SCH ×2 (09:10→21:02)
[2021-09-01] MEDS: ASPIRIN 81 MG PO SCH (09:10)
[2021-09-01] MEDS: METOPROLOL TARTRATE 50 MG TAB PO SCH ×3 (09:10→20:12)
[2021-09-01] MEDS: INSULIN DETEMIR (LEVEMIR) 100 UNIT/ML SYR SQ SCH (09:11)
[2021-09-01] MEDS: ACETAMINOPHEN TAB 325 MG TAB PO SCH ×3 (09:11→20:13)
[2021-09-01] MEDS: FERROUS SULFATE 325 MG TAB PO SCH (09:12)
[2021-09-01] MEDS: CYANOCOBALAMIN 500 MCG TAB PO SCH (09:12)
[2021-09-01 09:37] LABS: African American GFR (CKD) 28.2 (60.0-200.0); Anion Gap 12.8 mmol/L (10.00-18.00); BUN/Creat Ratio 22.5 Ratio (12.00-20.00); Calcium 8.5 mg/dL (8.7-10.3); Carbon Dioxide 24.2 mmol/L (20.0-27.5); Magnesium 2.1 mg/dL (1.5-2.4); Non-African American GFR(CKD) 24.3 (60.0-200.0); Potassium 3.1 mmol/L (3.5-5.5)
--- NOTE | 2021-09-01 09:54 | P.PN ---
Subjective Patient is seen in follow-up for acute kidney injury. Renal function improving. Receiving D5W as blood sugars were low last night. Has a Vargas catheter for urinary retention. Nonoliguric. Resting in bed. Not responding to verbal questions at this time. Vital signs are stable. HEENT: Head exam is unremarkable. LUNGS: Breath sounds decreased. HEART: Rate and Rhythm are regular. ABDOMEN: Soft, no distention. EXTREMITITES: Trace edema. Objective - Vital Signs Vital signs: Vital Signs Temp 98.2 F 09/01/21 01:21 Pulse 97 09/01/21 01:21 Resp 20 09/01/21 01:21 BP 146/71 09/01/21 01:21 Pulse Ox 94 L 09/01/21 01:21 Intake & Output 08/31/21 09/01/21 09/01/21 18:59 06:59 18:59 Intake Total 900 Output Total 800 525 Balance -800 375 Weight 78 kg Intake: Intake, IV Titration 900 Amount Dextrose 10% in Water 500 450 ml In Empty Bag 1 bag @ 75 mls/hr IV .[id number] [facility] Rx#:[id number] Dextrose 5% in Water 225 225 ml @ 75 mls/hr IV .Q3H ONE Rx#:[id number] Sodium Chloride 0.9% 1, 225 000 ml @ 75 mls/hr IV . [id number] [facility] Rx#:[id number] Output: Urine 800 525 Uretheral (Vargas) 800 Stool 0 Other: Voiding Method Indwelling Catheter Indwelling Catheter # Bowel Movements 1 - Labs CBC & Chem 7: 08/31/21 10:08 09/01/21 06:01 Labs: Abnormal Lab Results - Last 24 Hours (Table) 08/31/21 08/31/21 08/31/21 Range/Units 06:16 10:08 11:43 RBC 3.34 L (3.80-5.40) m/uL Hgb 9.5 L D (11.4-16.0) gm/dL Hct 30.5 L (34.0-46.0) % RDW 16.2 H (11.5-15.5) % Metamyelocytes # (Man) 0.12 H (0) k/uL Potassium (3.5-5.5) mmol/L BUN (9.0-27.0) mg/dL Creatinine (0.6-1.5) mg/dL Est GFR (CKD-EPI)AfAm (60.0-200.0) Est GFR (CKD-EPI)NonAf (60.0-200.0) BUN/Creatinine Ratio (12.00-20.00) Ratio POC Glucose (mg/dL) 155 H (75-99) mg/dL Hemoglobin A1c 6.8 H (0.0-6.0) % Calcium (8.7-10.3) mg/dL 08/31/21 08/31/21 09/01/21 Range/Units 20:48 21:26 06:01 RBC (3.80-5.40) m/uL Hgb (11.4-16.0) gm/dL Hct (34.0-46.0) % RDW (11.5-15.5) % Metamyelocytes # (Man) (0) k/uL Potassium 3.1 L (3.5-5.5) mmol/L BUN 45.0 H (9.0-27.0) mg/dL Creatinine 2.0 H (0.6-1.5) mg/dL Est GFR (CKD-EPI)AfAm 28.2 L (60.0-200.0) Est GFR (CKD-EPI)NonAf 24.3 L (60.0-200.0) BUN/Creatinine Ratio 22.50 H (12.00-20.00) Ratio POC Glucose (mg/dL) 55 L 137 H (75-99) mg/dL Hemoglobin A1c (0.0-6.0) % Calcium 8.5 L (8.7-10.3) mg/dL 09/01/21 Range/Units 07:28 RBC (3.80-5.40) m/uL Hgb (11.4-16.0) gm/dL Hct (34.0-46.0) % RDW (11.5-15.5) % Metamyelocytes # (Man) (0) k/uL Potassium (3.5-5.5) mmol/L BUN (9.0-27.0) mg/dL Creatinine (0.6-1.5) mg/dL Est GFR (CKD-EPI)AfAm (60.0-200.0) Est GFR (CKD-EPI)NonAf (60.0-200.0) BUN/Creatinine Ratio (12.00-20.00) Ratio POC Glucose (mg/dL) 120 H (75-99) mg/dL Hemoglobin A1c (0.0-6.0) % Calcium (8.7-10.3) mg/dL Microbiology - Last 24 Hours (Table) 08/31/21 06:16 Blood Culture - Preliminary Blood No Growth after 24 hours 08/30/21 05:50 Blood Culture - Preliminary Blood No Growth after 48 hours 08/30/21 07:31 Urine Culture - Preliminary Urine,Catheterized Gram Neg Bacilli 08/30/21 05:57 Blood Culture Gram Stain - Preliminary Blood Blood Culture - Preliminary Proteus Species Assessment and Plan Plan: Assessment: 1. Acute kidney injury secondary to ATN secondary to hypovolemia from vomiting and use of losartan. Creatinine 4.84 on admission - 2.0 today. Creatinine was 1.0 in June 2020. 2. Hyperkalemia secondary to acute kidney injury, metabolic acidosis and losartan. Resolved. Now hypokalemic from poor intake. 3. Metabolic acidosis secondary to acute kidney injury and metformin. On oral bicarbonate. 4. Diabetes mellitus. 5. Proteus bacteremia. UA suggestive of UTI. 6. Urinary retention status post Vargas catheter placement. No hydronephrosis noted on kidney ultrasound. On Flomax. 7. Hypomagnesemia from poor intake. Replace. Better. Plan: Change IV fluids to D5 normal saline to be run at 70 mL an hour. Continue to monitor renal function and urine output. Follow-up cultures. Replace potassium.
[2021-09-01] MEDS: DEXTROSE 5%-0.9% NACL 1,000 ML IV SCH (10:04)
[2021-09-01] MEDS: POTASSIUM CHLORIDE 20 MEQ in WATER FOR INJECTION 1 100ML.BAG IVPB SCH ×2 (10:18→13:29)
[2021-09-01 10:26] LABS: Basophils # (A) 0.04 X 10*3/uL (0.00-0.10); Basophils % (A) 0.5 %; Eosinophils # (A) 0 X 10*3/uL (0.04-0.35); Eosinophils % (A) 0 %; HCT 28.1 % (37.2-46.3); HGB 8.8 g/dL (12.0-15.0); Immature Grans, Automated 1.6 %; Lymphocytes # (A) 1.91 X 10*3/uL (0.90-5.00); MCH 27.6 pg (27.0-32.0); MCHC 31.3 g/dL (32.0-37.0); MCV 88.1 fL (80.0-97.0); Monocytes # (A) 0.16 X 10*3/uL (0.20-1.00); Monocytes % (A) 2.2 %; NRBC Per 100 WBC 0 /100 WBCS (0.0-0.0); Neutrophils # (A) 5.12 X 10*3/uL (1.80-7.70); Neutrophils % (A) 69.7 %; Platelet Count 89 X 10*3/uL (140-440); RBC 3.19 X 10*6/uL (4.10-5.20); RDW 16.2 % (11.5-14.5); WBC 7.35 X 10*3/uL (4.50-10.00)
[2021-09-01 10:27] LABS: Immature Platelet Fraction 14.2 % (1.1-6.1)
--- NOTE | 2021-09-01 11:52 | ECHOF ---
Referral Reason:tachycardia MEASUREMENTS -------- HEIGHT: 162.6 cm WEIGHT: 78.9 kg BP: RVIDd: 3.2 cm (< 3.3) IVSd: 1.1 cm (0.6 - 1.1) LVIDd: 3.6 cm (3.9 - 5.3) LVPWd: 1.5 cm (0.6 - 1.1) IVSs: 1.6 cm LVIDs: 2.1 cm LVPWs: 1.5 cm LA Diam: 3.2 cm (2.7 - 3.8) Ao Diam: 3.1 cm (2.0 - 3.7) AV Cusp: 1.9 cm (1.5 - 2.6) LA Diam: 3.7 cm (2.7 - 3.8) MV EXCURSION: 14.577 mm (> 18.000) MV EF SLOPE: 53 mm/s (70 - 150) EPSS: 1.0 cm MV E Omari: 0.57 m/s MV DecT: 266 ms MV A Omari: 0.97 m/s MV E/A Ratio: 0.59 FINDINGS -------- Resting tachycardia (HR>100bpm). This was a technically adequate study. LV size, wall thickness and systolic function are normal, with an EF greater than 55%. The left manny tricular size is normal. The right ventricle is normal in size. The left atrial size is normal. The right atrial size is normal. There is mild aortic valve sclerosis. There is no evidence of aortic regurgitation. Mild mitral regurgitation is present. Mild tricuspid regurgitation present. Right ventricular systolic pressure is normal at < 35 mmHg. There is no pulmonic regurgitation present. Echo free space indicative of a pericardial fat pad. CONCLUSIONS -------- 1. LV size, wall thickness and systolic function are normal, with an EF greater than 55%. 2. The left ventricular size is normal. 3. The right ventricle is normal in size. 4. The left atrial size is normal. 5. The right atrial size is normal. 6. There is mild aortic valve sclerosis. 7. Mild mitral regurgitation is present. 8. Mild tricuspid regurgitation present. 9. Echo free space indicative of a pericardial fat pad. ICT HELP DESK TECHNICIAN: Maria Luisa Reyes RDCS
[2021-09-01 12:33] LABS: Glucose,Whole Blood 84 mg/dL (75-99)
--- NOTE | 2021-09-01 13:06 | P.CRDCN ---
History of Present Illness History of present illness: HISTORY OF PRESENTING ILLNESS This is a pleasant 71-year-old female past medical history significant for CVA and bedbound, hypertension, type 2 diabetes. 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 We have been asked to see in consultation for tachycardia and atrial fibrillation. Patient presents to the emergency department on 08/30/2021 with altered mental status and found to have acute renal failure. Patient presented from an [facility] due to altered mental status., Nausea, vomiting. Patient was found to have a creatinine of 4.8 and potassium 5.9. She was treated with IV normal saline and IV bicarb with improvement in renal function. She is also found to have bacteremia and being treated for urinary tract infection. Brain CT also revealed small lacunar infarct left internal capsule. Patient is minimally verbal and unable to give an accurate history. DIAGNOSTICS EKG reveals sinus tachycardia, heart rate 112, no significant ST-T wave abnormalities. Repeat EKG this morning also reveals sinus tachycardia, heart rate 133, frequent PACs Telemetry tracings indicate sinus tachycardia, frequent PACs, no evidence of atrial fibrillation Echocardiogram revealed an EF greater than 55%, mild mitral tissue, mild tricuspid regurgitation Laboratory reviewedWBC 7.3, hemoglobin 8.8, platelets 89, sodium 142, potassium 3.1, BUN 25, serum creatinine 2.0, magnesium 2.1 Current cardiac medications include aspirin 81 mg daily, atorvastatin 40 mg nightly, metoprolol titrate 50 mg 3 times a day, REVIEW OF SYSTEMS At the time of my exam: Patient unable to give accurate review of systems due to mental status PHYSICAL EXAMINATION Blood /62, heart rate 97, afebrile, oxygen saturation 95% on 2 L nasal cannula CONSTITUTIONAL: No apparent distress. HEENT: Head is normocephalic. Pupils are equal, round. Sclerae anicteric. Mucous membranes of the mouth are moist. No JVD. CHEST EXAMINATION: Lungs are clear to auscultation. HEART EXAMINATION: Regular rate and rhythm. S1, S2 heard. No murmurs, gallops or rub. ABDOMEN: Soft, nontender. Positive bowel sounds. EXTREMITIES: no lower extremity edema and no calf tenderness. NEUROLOGIC EXAMINATION: Patient is lethargic, not oriented . ASSESSMENT Sinus tachycardia with premature atrial complexes Altered mental status Acute Kidney Injury Bacteremia History of prior CVA Small lacunar infarct left internal capsule seen on CT brain Hypertension Type 2 diabetes Hypokalemia, replaced PLAN Telemetry reviewed and EKGs reviewed no evidence of atrial fibrillation, echocardiogram revealed normal left ventricular systolic function. We recommend continuing metoprolol tartrate 50mg BID and treat underlining cause of sinus tachycardia, if patient is unable to take PO medications, recommend switching to IV lopressor for rate control. From a cardiology perspective, no further inpatient workup at this time. We will follow the patient as needed. Nurse practitioner note has been reviewed by physician. Signing provider agrees with the documented findings, assessment, and plan of care. Past Medical History Past Medical History: Atrial Fibrillation, CVA/TIA, Diabetes Mellitus, Hypertension Additional Past Medical History / Comment(s): CVA with slight R sided weakness/past aphasia/dysphagia but staff at [facility] states this is not a current problem, IDDM type II, neuropathy bilateral feet, chronic cervical pain/DDD, back pain, UTIs, muscle weakness, past metabolic encephalopathy and acute kidney failure. History of Any Multi-Drug Resistant Organisms: None Reported Additional Past Surgical History / Comment(s): Gallbladder drain per pt. Past Anesthesia/Blood Transfusion Reactions: No Reported Reaction Smoking Status: Never smoker - Past Family History Mother Family Medical History: No Reported History Additional Family Medical History / Comment(s): Mother was healthy Father Family Medical History: Cancer Additional Family Medical History / Comment(s): Prostate cancer. Medications and Allergies Home Medications Medication Instructions Recorded Confirmed Type Acetaminophen [Tylenol] 325 mg PO TID@0700,1300,1900 08/30/21 08/30/21 History Aspirin 81 mg PO DAILY 08/30/21 08/30/21 History Atorvastatin [Lipitor] 40 mg PO HS@199908/30/21 08/30/21 History Cyanocobalamin [Vitamin B-12] 500 mcg PO DAILY 08/30/21 08/30/21 History Dermaceptin 1 applic TOPICAL TID 08/30/21 08/30/21 History Febuxostat [Uloric] 80 mg PO DAILY 08/30/21 08/30/21 History Ferrous Sulfate [Feosol] 325 mg PO DAILY 08/30/21 08/30/21 History Furosemide [Lasix] 20 mg PO DAILY@0700 08/30/21 08/30/21 History INSULIN ASPART (NovoLOG) [NovoLOG See Protocol SQ ACHS 08/30/21 08/30/21 History (formulary)] Insulin Detemir [Levemir Flextouch 15 units SQ DAILY 08/30/21 08/30/21 History Pen] Losartan Potassium [Cozaar] 100 mg PO DAILY 08/30/21 08/30/21 History Magnesium Hydroxide [Milk of 2,400 mg PO DAILY PRN 08/30/21 08/30/21 History Magnesia] Menthol [Biofreeze] 1 applic TOPICAL BID 08/30/21 08/30/21 History Metoprolol Tartrate [Lopressor] 50 mg PO TID@0700,1300,1900 08/30/21 08/30/21 History Pantoprazole Sodium [Protonix] 40 mg PO DAILY@0700 08/30/21 08/30/21 History Potassium Chloride [Klor-Con 10 ER] 10 meq PO DAILY@0700 08/30/21 08/30/21 History Povidone-Iodine [Betadine] 1 applic TOPICAL HS 08/30/21 08/30/21 History Prostat 30 ml PO DAILY 08/30/21 08/30/21 History Sennosides [Senna] 8.6 mg PO DAILY PRN 08/30/21 08/30/21 History amLODIPine [Norvasc] 10 mg PO HS@2000 08/30/21 08/30/21 History metFORMIN HCL [Glucophage] 1,000 mg PO BID@0700,1600 08/30/21 08/30/21 History Allergies Allergy/AdvReac Type Severity Reaction Status Date / Time codeine Allergy Unknown Verified 08/30/21 06:52 morphine Allergy Unknown Verified 08/30/21 06:52 Penicillins Allergy Unknown Verified 08/30/21 06:52 Physical Exam Vitals: Vital Signs Temp Pulse Pulse Resp BP BP BP 09/01/21 10:19 97.8 F 97 20 115/62 09/01/21 01:21 98.2 F 97 20 146/71 09/01/21 00:38 99.1 F 105 H 28 H 145/73 08/31/21 20:42 98.9 F 105 H 08/31/21 20:00 99.9 F H 120 H 20 124/71 08/31/21 14:00 98.7 F 122 H 14 123/79 Pulse Ox 09/01/21 10:19 95 02/04/22 01:21 94 L 09/01/21 00:38 92 L 08/31/21 20:42 93 L 08/31/21 20:00 88 L 08/31/21 14:00 91 L Intake and Output 08/31/21 09/01/21 09/01/21 22:59 06:59 14:59 Intake Total 900 Output Total 800 525 Balance -800 375 Intake: Intake, IV Titration 900 Amount Dextrose 10% in Water 500 450 ml In Empty Bag 1 bag @ 75 mls/hr IV .Q6H40M [facility] Rx#:[id number] Dextrose 5% in Water 225 225 ml @ 75 mls/hr IV .Q3H ONE Rx#:[id number] Sodium Chloride 0.9% 1, 225 000 ml @ 75 mls/hr IV . [id number] [facility] Rx#:[id number] Output: Urine 800 525 Uretheral (Vargas) 800 Stool 0 Other: Voiding Method Indwelling Catheter # Bowel Movements 1 Weight 78 kg Results 09/01/21 06:01 09/01/21 06:01 Cardiac Enzymes 08/31/21 Range/Units 17:05 Troponin I <0.012 (0.000-0.034) ng/mL CBC 09/01/21 Range/Units 06:01 WBC 7.35 (4.50-10.00) X 10*3/uL RBC 3.19 L (4.10-5.20) X 10*6/uL Hgb 8.8 L (12.0-15.0) g/dL Hct 28.1 L (37.2-46.3) % Plt Count 89 L (140-440) X 10*3/uL Comprehensive Metabolic Panel 08/31/21 09/01/21 Range/Units 21:38 06:01 Sodium 142 (135-145) mmol/L Potassium 3.1 L (3.5-5.5) mmol/L Chloride 105 (96-109) mmol/L Carbon Dioxide 24.2 (20.0-27.5) mmol/L BUN 45.0 H (9.0-27.0) mg/dL Creatinine 2.0 H (0.6-1.5) mg/dL Glucose 97 108 (74-99) mg/dL Calcium 8.5 L (8.7-10.3) mg/dL Current Medications Generic Name Dose Route Start Last Admin Trade Name Andrew PRN Reason Stop Dose Admin Acetaminophen 650 mg 08/30/21 06:42 Acetaminophen Tab 325 Mg Tab PO Q6HR PRN Mild Pain or Fever > 100.5 Acetaminophen 325 mg 08/30/21 13:00 09/01/21 09:11 Acetaminophen Tab 325 Mg Tab PO Not Given TID@0700,1300,1900 [facility] Aspirin 81 mg 08/31/21 09:00 09/01/21 09:10 Aspirin 81 Mg PO 81 mg DAILY ERIN Administration Atorvastatin Calcium 40 mg 08/30/21 20:00 08/31/21 20:16 Atorvastatin 40 Mg Tab PO 40 mg HS@2000 [facility] Administration Cyanocobalamin 500 mcg 08/31/21 09:00 09/01/21 09:12 Cyanocobalamin 500 Mcg Tab PO Not Given DAILY [facility] Famotidine 20 mg 08/30/21 09:00 09/01/21 09:10 Famotidine 20 Mg Tab PO Not Given DAILY [facility] Ferrous Sulfate 325 mg 08/31/21 09:00 09/01/21 09:12 Ferrous Sulfate 325 Mg Tab PO Not Given DAILY [facility] Heparin Sodium (Porcine) 5,000 unit 09/01/21 21:00 Heparin Sodium,Porcine/Pf 5,000 Unit/0.5 Ml Syringe SQ Q12HR [facility] Ceftriaxone Sodium 2 gm/ 50 mls @ 100 mls/hr 08/31/21 09:00 09/01/21 09:12 Sodium Chloride IVPB 100 mls/hr Q24HR ERIN Administration Dextrose/Sodium Chloride 1,000 mls @ 70 mls/hr 09/01/21 10:15 09/01/21 10:04 Dextrose 5%-Ns Iv Soln IV 70 mls/hr .[id number] [facility] Administration Potassium Chloride 20 meq/ IV 100 mls @ 50 mls/hr 09/01/21 11:00 09/01/21 10:18 Solution IVPB 09/01/21 14:59 50 mls/hr Q2H ERIN Administration Insulin Aspart 0 unit 08/30/21 12:30 09/01/21 12:32 Insulin Aspart (Novolog) 100 Unit/Ml Vial SQ Not Given ACHS [facility] Protocol Insulin Detemir 15 unit 08/31/21 07:00 09/01/21 09:11 Insulin Detemir (Levemir) 100 Unit/Ml Syr SQ 15 unit DAILY@0700 [facility] Administration Metoprolol Tartrate 50 mg 08/30/21 13:00 09/01/21 09:10 Metoprolol Tartrate 50 Mg Tab PO 50 mg TID@0700,1300,1900 [facility] Administration Miscellaneous Information 1 each 08/31/21 09:25 Magnesium Replacement Protocol 1 Each Misc MISCELLANE DAILY PRN Per Protocol Protocol Naloxone HCl 0.2 mg 08/30/21 06:36 Naloxone 0.4 Mg/Ml 1 Ml Vial IV Q2M PRN Opioid Reversal Ondansetron HCl 4 mg 08/30/21 06:42 08/30/21 09:57 Ondansetron 4 Mg/2 Ml Vial IVP 4 mg Q8HR PRN Administration Nausea And Vomiting Pantoprazole Sodium 40 mg 08/31/21 07:00 09/01/21 09:10 Pantoprazole 40 Mg Tablet PO Not Given DAILY@0700 [facility] Senna 8.6 mg 08/30/21 12:06 Sennosides 8.6 Mg Tab PO DAILY PRN Constipation Sodium Bicarbonate 650 mg 08/31/21 09:45 09/01/21 09:10 Sodium Bicarbonate Tab 650 Mg Tab PO 650 mg BID [facility] Administration Tamsulosin HCl 0.4 mg 08/31/21 18:30 08/31/21 17:11 Tamsulosin 0.4 Mg Cap.Er.24h PO Not Given PC-SUPPER [facility] Intake and Output 08/31/21 09/01/21 09/01/21 22:59 06:59 14:59 Intake Total 900 Output Total 800 525 Balance -800 375 Intake: Intake, IV Titration 900 Amount Dextrose 10% in Water 500 450 ml In Empty Bag 1 bag @ 75 mls/hr IV .Q6H40M [facility] Rx#:[id number] Dextrose 5% in Water 225 225 ml @ 75 mls/hr IV .Q3H ONE Rx#:[id number] Sodium Chloride 0.9% 1, 225 000 ml @ 75 mls/hr IV . [id number] [facility] Rx#:[id number] Output: Urine 800 525 Uretheral (Vargas) 800 Stool 0 Other: Voiding Method Indwelling Catheter # Bowel Movements 1 Weight 78 kg 09/01/21 06:01 09/01/21 06:01
--- NOTE | 2021-09-01 15:26 | P.PN ---
Subjective Progress Note Date: 09/01/21 71-year-old female came in with altered mental status found to have acute renal failure patient baseline creatinine is around 1 patient present creatinine is 4.84 patient had history of stroke in the past mostly bedbound. Patient has 1/5 strength in bilateral lower extremities. Patient has bilateral lower extremity edema. Echocardiogram is not available at this time and this hospital system. Patient also has admitted potassium. Patient is alert oriented times close to 2 when I evaluated the patient although she thought it's 2026. Patient is negative for COVID-19. Patient is receiving IV normal saline at 1 30 mL per hour. Patient had an episode of nausea and vomiting last night. Patient is on Lasix. Patient is not on any nonsteroidal anti-inflammatory medications. 08/31/2021 Patient fell today resting bed. She is only arousable to painful saline with sternal rub even with that there was minimal verbal response. She seems fatigued. Brain CT on admission yesterday morning dose show cerebral atrophy with small lacunar infarct left internal capsule. No acute abnormality. Blood cultures are showing Proteus species, continues with IV Rocephin 2 g every 24 hours while cultures are finalized repeat blood cultures were taken today. Urine culture is preliminary. Labs today show white count 5.9, hemoglobin 9.5, sodium 137, potassium 3.8, BUN 53, creatinine 3, glucose 150s, hemoglobin A1c 6.8. Magnesium 1.6. Patient received 2 bags of magnesium today, losartan discontinued, Lasix discontinued, patient on 0.9 at 75 with oral sodium bicarbonate. Repeat chest x-ray today shows probable basilar atelectasis difficult to exclude pneumonia there may be underlying interstitial lung disease. Vitals, 91% on room air, heart rate 124, blood pressure 95/65 and she is afebrile. She is being followed by nephrology and consult with ID services today for positive blood cultures. Indwelling catheter in place, hematuria seems to be improving. Patient on Flomax for urinary retention. 09/01/2021 Patient evaluated today in room, she is minimally arousable to voice and physical stimuli. She is being followed closely by ID, cardiology, nephrology services. Cardiology was consulted today for tachycardia after review of telemetry and echocardiogram rhythm determined as sinus tachycardia with PACS to continue with metoprolol 50 mg PO TID and switch to IV metoprolol if unable to tolerate oral medications. Echocardiogram was completed which shows an EF of greater than 55% with mild mitral regurgitation and mild tricuspid regurgitation. Current vital signs, afebrile, heart rate 101, blood pressure 117/61 and she is 95% on room air. Blood culture and urine culture finalized to Proteus Mirabillis susceptible to Rocephin with repeat blood cultures showing negative after 24 hours. Labs today show white count 7.35, hemoglobin 8.8, platelet count 89 which is significantly decreased, repeat tomorrow if continues to drop we will stop heparin. Potassium 3.1, sodium 142, BUN 45, creatinine 2, glucose in the 80s, magnesium 2.1. ROS Unable to complete a full review of systems due lethargy. PHYSICAL EXAMINATION: GENERAL: The patient is alert and oriented x1, lethargic. Well developed, well nourished. HEENT: Pupils are round and equally reacting to light. EOMI. No scleral icterus. No conjunctival pallor. Normocephalic, atraumatic. No pharyngeal erythema. No thyromegaly. CARDIOVASCULAR: S1 and S2 present. No murmurs, rubs, or gallops. PULMONARY: Chest is clear to auscultation, no wheezing or crackles. ABDOMEN: Soft, nontender, nondistended, normoactive bowel sounds. No palpable organomegaly. MUSCULOSKELETAL: No joint swelling or deformity. EXTREMITIES: No cyanosis, clubbing, or pedal edema. NEUROLOGICAL: Unable to complete full neurological exam due to lethargy SKIN: No rashes. Assessment and plan -Acute renal failure: Probably secondary to acute tubular Necrosis from hypovolemia. Patient does have proteinuria, nephrology consult, with hematuria and retention -Bacteremia with proteus miribilis on IV rocephine -Urinary tract infection with urine culture showing positive for proteus miribillis on IV rocephin -Altered mental status secondary to toxic and metabolic encepholapthy multifactorial with component of UTI, bactermia, and acute kidney injury, brain CT showing small lacunar infarct left internal capsule with no acute abnormality -Hyperkalemia secondary to renal failure and losartan, losartan is being held at this time, now with hypokalemia, replaced per protocol -Mild hematuria, will need urology outpatient -Anion gap and non-anion gap metabolic acidosis secondary to acute renal failure, lactic acidosis from metformin which is being held on oral bicarbonate -type 2 diabetes mellitus: Patient will be started on sliding scale insulin -Leukocytosis, secondary to possible UTI and also bacteremia, resolved at this time, continue with Rocephin -Hyponatremia secondary to renal dysfunction and poor oral intake -History of stroke with some baseline vascular dementia. -Generalized medical debility secondary to previous stroke patient is mostly bedbound and a long-term longterm resident -Hypertension DVT prophylaxis: Subcutaneous heparin GI Prophlyaxis: Protonix FULL CODE Plan Telemetry Oxygen support Continue with IV antibiotics ID consultation Repeat blood cultures pending Neuro checks Repeat labs in AM Prognosis guarded Objective - Vital Signs Vital signs: Vital Signs Temp 97.8 F 09/01/21 10:19 Pulse 97 09/01/21 10:19 Resp 20 09/01/21 10:19 BP 115/62 09/01/21 10:19 Pulse Ox 95 09/01/21 10:19 Intake & Output 08/31/21 09/01/21 09/01/21 18:59 06:59 18:59 Intake Total 900 Output Total 800 525 Balance -800 375 Weight 78 kg Intake: Intake, IV Titration 900 Amount Dextrose 10% in Water 500 450 ml In Empty Bag 1 bag @ 75 mls/hr IV .Q6H40M [facility] Rx#:[id number] Dextrose 5% in Water 225 225 ml @ 75 mls/hr IV .Q3H ONE Rx#:[id number] Sodium Chloride 0.9% 1, 225 000 ml @ 75 mls/hr IV . [id number] [facility] Rx#:[id number] Output: Urine 800 525 Uretheral (Vargas) 800 Stool 0 Other: Voiding Method Indwelling Catheter Indwelling Catheter # Bowel Movements 1 - Labs CBC & Chem 7: 09/01/21 06:01 09/01/21 06:01 Labs: Abnormal Lab Results - Last 24 Hours (Table) 08/31/21 08/31/21 09/01/21 Range/Units 20:48 21:26 06:01 RBC (4.10-5.20) X 10*6/uL Hgb (12.0-15.0) g/dL Hct (37.2-46.3) % MCHC (32.0-37.0) g/dL RDW (11.5-14.5) % Plt Count (140-440) X 10*3/uL Plt Count Comment MPV (9.5-12.2) fL Immature Gran # (0.00-0.04) X 10*3/uL Monocytes # (0.20-1.00) X 10*3/uL Eosinophils # (0.04-0.35) X 10*3/uL Immature Plt Fraction (1.1-6.1) % Potassium 3.1 L (3.5-5.5) mmol/L BUN 45.0 H (9.0-27.0) mg/dL Creatinine 2.0 H (0.6-1.5) mg/dL Est GFR (CKD-EPI)AfAm 28.2 L (60.0-200.0) Est GFR (CKD-EPI)NonAf 24.3 L (60.0-200.0) BUN/Creatinine Ratio 22.50 H (12.00-20.00) Ratio POC Glucose (mg/dL) 55 L 137 H (75-99) mg/dL Calcium 8.5 L (8.7-10.3) mg/dL 09/01/21 09/01/21 Range/Units 06:01 07:28 RBC 3.19 L (4.10-5.20) X 10*6/uL Hgb 8.8 L (12.0-15.0) g/dL Hct 28.1 L (37.2-46.3) % MCHC 31.3 L (32.0-37.0) g/dL RDW 16.2 H (11.5-14.5) % Plt Count 89 L (140-440) X 10*3/uL Plt Count Comment DECREASED A MPV 13.0 H (9.5-12.2) fL Immature Gran # 0.12 H (0.00-0.04) X 10*3/uL Monocytes # 0.16 L (0.20-1.00) X 10*3/uL Eosinophils # 0 L (0.04-0.35) X 10*3/uL Immature Plt Fraction 14.2 H (1.1-6.1) % Potassium (3.5-5.5) mmol/L BUN (9.0-27.0) mg/dL Creatinine (0.6-1.5) mg/dL Est GFR (CKD-EPI)AfAm (60.0-200.0) Est GFR (CKD-EPI)NonAf (60.0-200.0) BUN/Creatinine Ratio (12.00-20.00) Ratio POC Glucose (mg/dL) 120 H (75-99) mg/dL Calcium (8.7-10.3) mg/dL Microbiology - Last 24 Hours (Table) 08/30/21 05:57 Blood Culture Gram Stain - Final Blood Blood Culture - Final Proteus mirabilis 08/30/21 07:31 Urine Culture - Final Urine,Catheterized Proteus mirabilis 08/31/21 06:16 Blood Culture - Preliminary Blood No Growth after 24 hours 08/30/21 05:50 Blood Culture - Preliminary Blood No Growth after 48 hours Assessment and Plan Time with Patient: Greater than 30
[2021-09-01 16:41] LABS: Glucose,Whole Blood 84 mg/dL (75-99)
[2021-09-01] MEDS: TAMSULOSIN 0.4 MG CAP.ER.24H PO SCH (19:56)
[2021-09-01] MEDS: ATORVASTATIN 40 MG TAB PO SCH (21:00)
[2021-09-01] MEDS: HEPARIN SODIUM,PORCINE/PF 5,000 UNIT/0.5 ML SYRINGE SQ SCH (21:12)
[2021-09-01 21:16] LABS: Glucose,Whole Blood 97 mg/dL (75-99)
--- NOTE | 2021-09-01 22:32 | P.PN ---
Subjective Progress Note Date: 09/01/21 Principal diagnosis: Proteus urinary tract infection and bacteremia Patient is 71-year-old female who has been brought in the hospital for mental status changes concerning for urinary tract infection now with evidence of secondary bacteremia. Ultrasound of the abdomen did not show any hydronephrosis and there was evidence of cystitis On today's evaluation that is 09/01/2021, the patient remains to be afebrile, the patient remains to be lethargic and unable to provide any history of vomiting or diarrhea has been reported with nursing staff Objective - Vital Signs Vital signs: Vital Signs Temp 97.6 F 09/01/21 19:58 Pulse 112 H 09/01/21 19:58 Resp 18 09/01/21 19:58 BP 128/71 09/01/21 19:58 Pulse Ox 94 L 09/01/21 19:58 Intake & Output 09/01/21 09/01/21 09/02/21 06:59 18:59 06:59 Intake Total 900 Output Total 525 1150 1400 Balance 375 -1150 -1400 Intake: Intake, IV Titration 900 Amount Dextrose 10% in Water 500 450 ml In Empty Bag 1 bag @ 75 mls/hr IV .Q6H40M [facility] Rx#:[id number] Dextrose 5% in Water 225 225 ml @ 75 mls/hr IV .Q3H ONE Rx#:[id number] Sodium Chloride 0.9% 1, 225 000 ml @ 75 mls/hr IV . [id number] [facility] Rx#:[id number] Output: Urine 525 1150 1400 Uretheral (Vargas) 550 Other: Voiding Method Indwelling Catheter Indwelling Catheter # Bowel Movements 1 0 - Exam GENERAL DESCRIPTION: An elderly female lying in bed in no distress RESPIRATORY SYSTEM: Unlabored breathing , decreased breath sounds at bases HEART: S1 S2 regular rate and rhythm , ABDOMEN: Soft , mild tenderness EXTREMITIES: No edema fee - Labs CBC & Chem 7: 09/01/21 06:01 09/01/21 06:01 Labs: Abnormal Lab Results - Last 24 Hours (Table) 09/01/21 09/01/21 09/01/21 Range/Units 06:01 06:01 07:28 RBC 3.19 L (4.10-5.20) X 10*6/uL Hgb 8.8 L (12.0-15.0) g/dL Hct 28.1 L (37.2-46.3) % MCHC 31.3 L (32.0-37.0) g/dL RDW 16.2 H (11.5-14.5) % Plt Count 89 L (140-440) X 10*3/uL Plt Count Comment DECREASED A MPV 13.0 H (9.5-12.2) fL Immature Gran # 0.12 H (0.00-0.04) X 10*3/uL Monocytes # 0.16 L (0.20-1.00) X 10*3/uL Eosinophils # 0 L (0.04-0.35) X 10*3/uL Immature Plt Fraction 14.2 H (1.1-6.1) % Potassium 3.1 L (3.5-5.5) mmol/L BUN 45.0 H (9.0-27.0) mg/dL Creatinine 2.0 H (0.6-1.5) mg/dL Est GFR (CKD-EPI)AfAm 28.2 L (60.0-200.0) Est GFR (CKD-EPI)NonAf 24.3 L (60.0-200.0) BUN/Creatinine Ratio 22.50 H (12.00-20.00) Ratio POC Glucose (mg/dL) 120 H (75-99) mg/dL Calcium 8.5 L (8.7-10.3) mg/dL Microbiology - Last 24 Hours (Table) 08/30/21 05:57 Blood Culture Gram Stain - Final Blood Blood Culture - Final Proteus mirabilis 08/30/21 07:31 Urine Culture - Final Urine,Catheterized Proteus mirabilis 08/31/21 06:16 Blood Culture - Preliminary Blood No Growth after 24 hours 08/30/21 05:50 Blood Culture - Preliminary Blood No Growth after 48 hours Assessment and Plan (1) Gram-negative bacteremia Current Visit: Yes Status: Acute Code(s): R78.81 - BACTEREMIA SNOMED Code(s): 874604492725 Plan: Patient with gram-negative bacteremia secondary to the urinary source, both urine and blood are showing Proteus, ultrasound was negative for any hydronephrosis patient is currently covered with Rocephin to continue while monitoring clinical course closely Time with Patient: Less than 30
[2021-09-02] MEDS: DEXTROSE 5%-0.9% NACL 1,000 ML IV SCH (04:56)
[2021-09-02 05:04] LABS: HCT 27.4 % (34.0-46.0); HGB 8.5 gm/dL (11.4-16.0); Hypochromasia Slight; MCHC 31.2 g/dL (31.0-37.0); Mean Platelet Volume 11.2; RBC 2.94 m/uL (3.80-5.40); RDW 15.8 % (11.5-15.5)
[2021-09-02 05:21] LABS: Platelet Count 66 k/uL (150-450)
[2021-09-02 05:44] LABS: Band Neutrophils % 21 %; Lymphocytes # (M) 1.38 k/uL (1.0-4.8); Monocytes # (M) 0.06 k/uL (0-1.0); Neutrophils % (M) 55 %; Nucleated Red Blood Cells 0 /100 WBC (0-0); Total Cells Counted 200
[2021-09-02 05:46] LABS: Toxic Granulation Present
[2021-09-02 07:10] LABS: Glucose,Whole Blood 133 mg/dL (75-99)
[2021-09-02] MEDS: ACETAMINOPHEN TAB 325 MG TAB PO SCH ×3 (08:28→16:47)
--- NOTE | 2021-09-02 08:46 | P.PN ---
Subjective Patient is seen in follow-up for acute kidney injury. Renal function improving. Receiving IV fluids. Has a Vargas catheter for urinary retention. Nonoliguric. Resting in bed. Not responding to verbal questions at this time. Vital signs are stable. HEENT: Head exam is unremarkable. LUNGS: Breath sounds decreased. HEART: Rate and Rhythm are regular. ABDOMEN: Soft, no distention. EXTREMITITES: Trace edema. Objective - Vital Signs Vital signs: Vital Signs Temp 98.4 F 09/02/21 08:30 Pulse 122 H 09/02/21 08:30 Resp 24 09/02/21 08:30 BP 156/80 09/02/21 08:30 Pulse Ox 93 L 09/02/21 08:30 Intake & Output 09/01/21 09/02/21 09/02/21 18:59 06:59 18:59 Output Total 1150 1800 Balance -1150 -1800 Output: Urine 1150 1800 Uretheral (Vargas) 550 Other: Voiding Method Indwelling Catheter Indwelling Catheter # Bowel Movements 0 - Labs CBC & Chem 7: 09/01/21 23:47 09/01/21 06:01 Labs: Abnormal Lab Results - Last 24 Hours (Table) 09/01/21 09/01/21 09/01/21 Range/Units 06:01 06:01 23:47 RBC 3.19 L 2.94 L (4.10-5.20) X 10*6/uL Hgb 8.8 L 8.5 L (12.0-15.0) g/dL Hct 28.1 L 27.4 L (37.2-46.3) % MCHC 31.3 L (32.0-37.0) g/dL RDW 16.2 H 15.8 H (11.5-14.5) % Plt Count 89 L 66 L D (140-440) X 10*3/uL Plt Count Comment DECREASED A MPV 13.0 H (9.5-12.2) fL Immature Gran # 0.12 H (0.00-0.04) X 10*3/uL Monocytes # 0.16 L (0.20-1.00) X 10*3/uL Eosinophils # 0 L (0.04-0.35) X 10*3/uL Immature Plt Fraction 14.2 H (1.1-6.1) % Potassium 3.1 L (3.5-5.5) mmol/L BUN 45.0 H (9.0-27.0) mg/dL Creatinine 2.0 H (0.6-1.5) mg/dL Est GFR (CKD-EPI)AfAm 28.2 L (60.0-200.0) Est GFR (CKD-EPI)NonAf 24.3 L (60.0-200.0) BUN/Creatinine Ratio 22.50 H (12.00-20.00) Ratio POC Glucose (mg/dL) (75-99) mg/dL Calcium 8.5 L (8.7-10.3) mg/dL 09/02/21 Range/Units 07:08 RBC (4.10-5.20) X 10*6/uL Hgb (12.0-15.0) g/dL Hct (37.2-46.3) % MCHC (32.0-37.0) g/dL RDW (11.5-14.5) % Plt Count (140-440) X 10*3/uL Plt Count Comment MPV (9.5-12.2) fL Immature Gran # (0.00-0.04) X 10*3/uL Monocytes # (0.20-1.00) X 10*3/uL Eosinophils # (0.04-0.35) X 10*3/uL Immature Plt Fraction (1.1-6.1) % Potassium (3.5-5.5) mmol/L BUN (9.0-27.0) mg/dL Creatinine (0.6-1.5) mg/dL Est GFR (CKD-EPI)AfAm (60.0-200.0) Est GFR (CKD-EPI)NonAf (60.0-200.0) BUN/Creatinine Ratio (12.00-20.00) Ratio POC Glucose (mg/dL) 133 H (75-99) mg/dL Calcium (8.7-10.3) mg/dL Microbiology - Last 24 Hours (Table) 08/31/21 06:16 Blood Culture - Preliminary Blood No Growth after 48 hours 08/30/21 05:50 Blood Culture - Preliminary Blood No Growth after 72 hours 08/30/21 05:57 Blood Culture Gram Stain - Final Blood Blood Culture - Final Proteus mirabilis 02/02/22 07:31 Urine Culture - Final Urine,Catheterized Proteus mirabilis Assessment and Plan Plan: Assessment: 1. Acute kidney injury secondary to ATN secondary to hypovolemia from vomiting and use of losartan. Creatinine 4.84 on admission - 2.0 yesterday. Creatinine was 1.0 in June 2020. 2. Hyperkalemia secondary to acute kidney injury, metabolic acidosis and losart an. Resolved. Now hypokalemic from poor intake. Replaced. 3. Metabolic acidosis secondary to acute kidney injury and metformin. On oral bicarbonate. 4. Diabetes mellitus. 5. Proteus bacteremia and UTI. On antibiotics. 6. Urinary retention status post Vargas catheter placement. No hydronephrosis noted on kidney ultrasound. On Flomax. 7. Hypomagnesemia from poor intake. Replaced. Better. Plan: Maintain IV fluids. Continue to monitor renal function and urine output. Follow-up morning labs.
[2021-09-02] MEDS: INSULIN ASPART (NovoLOG) 100 UNIT/ML VIAL SQ SCH ×4 (09:12→20:54)
[2021-09-02] MEDS ORDERED: METOPROLOL TARTRATE 5 MG/5 ML VIAL IVP ONE (09:15)
[2021-09-02 09:25] LABS: African American GFR (CKD) 43.4 (60.0-200.0); Anion Gap 11.3 mmol/L (10.00-18.00); Blood Urea Nitrogen 37.8 mg/dL (9.0-27.0); Calcium 8.5 mg/dL (8.7-10.3); Carbon Dioxide 24.7 mmol/L (20.0-27.5); Magnesium 1.9 mg/dL (1.5-2.4); Non-African American GFR(CKD) 37.4 (60.0-200.0)
[2021-09-02] MEDS: FERROUS SULFATE 325 MG TAB PO SCH (09:49)
[2021-09-02] MEDS: CYANOCOBALAMIN 500 MCG TAB PO SCH (09:49)
[2021-09-02] MEDS: FAMOTIDINE 20 MG TAB PO SCH (09:49)
[2021-09-02 09:57] LABS: Basophils # (M) 0 X 10*3/uL (0.00-0.10); Eosinophils # (M) 0 X 10*3/uL (0.04-0.35); HCT 27.3 % (37.2-46.3); HGB 8.3 g/dL (12.0-15.0); Immature Platelet Fraction 17.5 % (1.1-6.1); MCH 27.3 pg (27.0-32.0); MCHC 30.4 g/dL (32.0-37.0); MCV 89.8 fL (80.0-97.0); Monocytes # (M) 0.18 X 10*3/uL (0.20-1.00); Myelocytes % 1 % (0-0); NRBC Per 100 WBC 0 /100 WBCS (0.0-0.0); Neutrophils # (M) 4.88 X 10*3/uL (2.00-8.90); Neutrophils % (M) 81 %; Platelet Count 53 X 10*3/uL (140-440); RBC 3.04 X 10*6/uL (4.10-5.20); RDW 16.4 % (11.5-14.5); WBC 6.02 X 10*3/uL (4.50-10.00)
[2021-09-02] MEDS: INSULIN DETEMIR (LEVEMIR) 100 UNIT/ML SYR SQ SCH (10:24)
[2021-09-02] MEDS: HEPARIN SODIUM,PORCINE/PF 5,000 UNIT/0.5 ML SYRINGE SQ SCH ×2 (10:24→20:18)
[2021-09-02] MEDS: PANTOPRAZOLE 40 MG/10 ML VIAL IVP SCH (10:24)
[2021-09-02] MEDS ORDERED: POTASSIUM CHLORIDE ER 20 MEQ TAB.ER PO STA (11:57)
[2021-09-02 12:05] LABS: Glucose,Whole Blood 135 mg/dL (75-99)
[2021-09-02] MEDS: DEXTROSE 5%-0.45% NACL 1,000 ML IV SCH (12:28)
[2021-09-02] MEDS: SODIUM BICARBONATE TAB 650 MG TAB PO SCH ×2 (16:42→20:33)
[2021-09-02 16:43] LABS: Glucose,Whole Blood 100 mg/dL (75-99)
[2021-09-02] MEDS: ASPIRIN 81 MG PO SCH (16:43)
[2021-09-02] MEDS: TAMSULOSIN 0.4 MG CAP.ER.24H PO SCH (16:50)
[2021-09-02] MEDS: METOPROLOL TARTRATE 5 MG/5 ML VIAL IVP SCH ×2 (16:50→20:33)
[2021-09-02] MEDS: METOPROLOL TARTRATE 50 MG TAB PO SCH (17:11)
[2021-09-02] MEDS: ATORVASTATIN 40 MG TAB PO SCH (20:33)
[2021-09-02 20:35] LABS: Glucose,Whole Blood 87 mg/dL (75-99)
--- NOTE | 2021-09-02 23:13 | P.PN ---
Subjective Progress Note Date: 09/02/21 71-year-old female came in with altered mental status found to have acute renal failure patient baseline creatinine is around 1 patient present creatinine is 4.84 patient had history of stroke in the past mostly bedbound. Patient has 1/5 strength in bilateral lower extremities. Patient has bilateral lower extremity edema. Echocardiogram is not available at this time and this hospital system. Patient also has admitted potassium. Patient is alert oriented times close to 2 when I evaluated the patient although she thought it's 2026. Patient is negative for COVID-19. Patient is receiving IV normal saline at 1 30 mL per hour. Patient had an episode of nausea and vomiting last night. Patient is on Lasix. Patient is not on any nonsteroidal anti-inflammatory medications. 08/31/2021 Patient fell today resting bed. She is only arousable to painful saline with sternal rub even with that there was minimal verbal response. She seems fatigued. Brain CT on admission yesterday morning dose show cerebral atrophy with small lacunar infarct left internal capsule. No acute abnormality. Blood cultures are showing Proteus species, continues with IV Rocephin 2 g every 24 hours while cultures are finalized repeat blood cultures were taken today. Urine culture is preliminary. Labs today show white count 5.9, hemoglobin 9.5, sodium 137, potassium 3.8, BUN 53, creatinine 3, glucose 150s, hemoglobin A1c 6.8. Magnesium 1.6. Patient received 2 bags of magnesium today, losartan discontinued, Lasix discontinued, patient on 0.9 at 75 with oral sodium bicarbonate. Repeat chest x-ray today shows probable basilar atelectasis difficult to exclude pneumonia there may be underlying interstitial lung disease. Vitals, 91% on room air, heart rate 124, blood pressure 95/65 and she is afebrile. She is being followed by nephrology and consult with ID services today for positive blood cultures. Indwelling catheter in place, hematuria seems to be improving. Patient on Flomax for urinary retention. 09/01/2021 Patient evaluated today in room, she is minimally arousable to voice and physical stimuli. She is being followed closely by ID, cardiology, nephrology services. Cardiology was consulted today for tachycardia after review of telemetry and echocardiogram rhythm determined as sinus tachycardia with PACS to continue with metoprolol 50 mg PO TID and switch to IV metoprolol if unable to tolerate oral medications. Echocardiogram was completed which shows an EF of greater than 55% with mild mitral regurgitation and mild tricuspid regurgitation. Current vital signs, afebrile, heart rate 101, blood pressure 117/61 and she is 95% on room air. Blood culture and urine culture finalized to Proteus Mirabillis susceptible to Rocephin with repeat blood cultures showing negative after 24 hours. Labs today show white count 7.35, hemoglobin 8.8, platelet count 89 which is significantly decreased, repeat tomorrow if continues to drop we will stop heparin. Potassium 3.1, sodium 142, BUN 45, creatinine 2, glucose in the 80s, magnesium 2.1. 09/02/2021 Patient today is more alert, she is responding to verbal commands, with equal bilateral hand grasp and spontaneous eye opening. She is not moving her lower extremities but is responding to touch. She appears to have bilateral foot drop. Platelets have decreased significantly since initiating subc heparin, today platelets are 53. Heparin is now on hold. Hemoglobin stable at 8.3, WBC 6.02, sodium 145, potassium 3.0, BUN 37.8 creatinine 1.4, GFR 37.4, blood sugars in the 100's, magnesium 1.9. Patient with low grade fevers today 99, heart rates in the 100's, blood pressure 135/76, 96% on room air. She was moved to the stepdown unit for IV lopressor as she is not tolerating any oral intake. Hopefully tomorrow she is more alert and diet can be advanced if she passes bedside swallow. ROS Unable to complete a full review of systems due lethargy. PHYSICAL EXAMINATION: GENERAL: The patient is alert and oriented x1 -2, lethargic. Well developed, well nourished. HEENT: Pupils are round and equally reacting to light. EOMI. No scleral icterus. No conjunctival pallor. Normocephalic, atraumatic. No pharyngeal erythema. No thyromegaly. CARDIOVASCULAR: S1 and S2 present. No murmurs, rubs, or gallops. PULMONARY: Chest is clear to auscultation, no wheezing or crackles. ABDOMEN: Soft, nontender, nondistended, normoactive bowel sounds. No palpable organomegaly. MUSCULOSKELETAL: No joint swelling or deformity. EXTREMITIES: No cyanosis, clubbing, or pedal edema. NEUROLOGICAL: Unable to complete full neurological exam, with equal but weak bilateral hand grasp. SKIN: No rashes. Assessment and plan -Acute renal failure: Probably secondary to acute tubular Necrosis from hypovolemia. Patient does have proteinuria, nephrology consult, with hematuria and retention, creatinine today 1.4 -Bacteremia with proteus miribilis on IV rocephin -Urinary tract infection with urine culture showing positive for proteus miribillis on IV rocephin -Altered mental status secondary to toxic and metabolic encepholapthy multifactorial with component of UTI, bactermia, and acute kidney injury, brain CT showing small lacunar infarct left internal capsule with no acute abnormality, improving -Hyperkalemia secondary to renal failure and losartan, losartan is being held at this time, now with hypokalemia, replaced per protocol -Mild hematuria, will need urology outpatient -Anion gap and non-anion gap metabolic acidosis secondary to acute renal failure, lactic acidosis from metformin which is being held on oral bicarbonate -type 2 diabetes mellitus: Patient will be started on sliding scale insulin -Leukocytosis, secondary to possible UTI and also bacteremia, resolved at this time, continue with Rocephin -Hyponatremia secondary to renal dysfunction and poor oral intake -History of stroke with some baseline vascular dementia. -Generalized medical debility secondary to previous stroke patient is mostly bedbound and a long-term penitentiary resident -Hypertension DVT prophylaxis: Subcutaneous heparin GI Prophlyaxis: Protonix FULL CODE Plan Telemetry Oxygen support Continue with IV antibiotics ID consultation Repeat blood cultures pending Neuro checks Repeat labs in AM Apply pressure reduction boots Prognosis guarded Objective - Vital Signs Vital signs: Vital Signs Temp 98.4 F 09/02/21 08:30 Pulse 95 09/02/21 09:40 Resp 18 09/02/21 09:40 BP 130/69 09/02/21 09:40 Pulse Ox 98 09/02/21 09:40 Intake & Output 09/01/21 09/02/21 09/02/21 18:59 06:59 18:59 Output Total 1150 1800 Balance -1150 -1800 Output: Urine 1150 1800 Uretheral (Vargas) 550 Other: Voiding Method Indwelling Catheter Indwelling Catheter Indwelling Catheter # Bowel Movements 0 - Labs CBC & Chem 7: 09/02/21 05:22 09/02/21 05:22 Labs: Abnormal Lab Results - Last 24 Hours (Table) 0209/02/21 09/02/21 Range/Units 23:47 05:22 05:22 RBC 2.94 L 3.04 L (3.80-5.40) m/uL Hgb 8.5 L 8.3 L (11.4-16.0) gm/dL Hct 27.4 L 27.3 L (34.0-46.0) % MCHC 30.4 L (32.0-37.0) g/dL RDW 15.8 H 16.4 H (11.5-15.5) % Plt Count 66 L D 53 L (150-450) k/uL Plt Count Comment DECREASED A Myelocytes % 1 H (0-0) % Monocytes # (Manual) 0.18 L (0.20-1.00) X 10*3/uL Eosinophils # (Manual) 0 L (0.04-0.35) X 10*3/uL Immature Plt Fraction 17.5 H (1.1-6.1) % Potassium 3.0 L (3.5-5.5) mmol/L BUN 37.8 H (9.0-27.0) mg/dL Est GFR (CKD-EPI)AfAm 43.4 L (60.0-200.0) Est GFR (CKD-EPI)NonAf 37.4 L (60.0-200.0) BUN/Creatinine Ratio 27.00 H (12.00-20.00) Ratio Glucose 125 H (70-110) mg/dL POC Glucose (mg/dL) (75-99) mg/dL Calcium 8.5 L (8.7-10.3) mg/dL 09/02/21 Range/Units 07:08 RBC (3.80-5.40) m/uL Hgb (11.4-16.0) gm/dL Hct (34.0-46.0) % MCHC (32.0-37.0) g/dL RDW (11.5-15.5) % Plt Count (150-450) k/uL Plt Count Comment Myelocytes % (0-0) % Monocytes # (Manual) (0.20-1.00) X 10*3/uL Eosinophils # (Manual) (0.04-0.35) X 10*3/uL Immature Plt Fraction (1.1-6.1) % Potassium (3.5-5.5) mmol/L BUN (9.0-27.0) mg/dL Est GFR (CKD-EPI)AfAm (60.0-200.0) Est GFR (CKD-EPI)NonAf (60.0-200.0) BUN/Creatinine Ratio (12.00-20.00) Ratio Glucose (70-110) mg/dL POC Glucose (mg/dL) 133 H (75-99) mg/dL Calcium (8.7-10.3) mg/dL Microbiology - Last 24 Hours (Table) 08/31/21 06:16 Blood Culture - Preliminary Blood No Growth after 48 hours 08/30/21 05:50 Blood Culture - Preliminary Blood No Growth after 72 hours 08/30/21 05:57 Blood Culture Gram Stain - Final Blood Blood Culture - Final Proteus mirabilis 08/30/21 07:31 Urine Culture - Final Urine,Catheterized Proteus mirabilis
[2021-09-03] MEDS: METOPROLOL TARTRATE 5 MG/5 ML VIAL IVP SCH ×2 (03:18→09:37)
[2021-09-03] MEDS: ACETAMINOPHEN TAB 325 MG TAB PO SCH ×3 (05:20→18:19)
[2021-09-03] MEDS: DEXTROSE 5%-0.45% NACL 1,000 ML IV SCH ×2 (05:59→12:35)
[2021-09-03 06:07] LABS: Glucose,Whole Blood 81 mg/dL (75-99)
[2021-09-03] MEDS: INSULIN ASPART (NovoLOG) 100 UNIT/ML VIAL SQ SCH ×4 (06:27→20:32)
[2021-09-03] MEDS: INSULIN DETEMIR (LEVEMIR) 100 UNIT/ML SYR SQ SCH (07:07)
[2021-09-03 07:43] LABS: Calcium 8.7 mg/dL (8.4-10.2); Magnesium 1.7 mg/dL (1.6-2.3); Potassium 2.8 mmol/L (3.5-5.1)
[2021-09-03] MEDS ORDERED: POTASSIUM CHLORIDE 60 MEQ in WATER FOR INJECTION 1 100ML.BAG IVPB STA (08:51)
[2021-09-03] MEDS ORDERED: MAGNESIUM SULFATE-D5W PMX 1 GM in DEXTROSE/WATER 1 100ML.BAG IVPB ONE (08:52)
--- NOTE | 2021-09-03 08:52 | P.PN ---
Subjective Patient is seen in follow-up for acute kidney injury. Renal function improving. Receiving IV fluids. Has a Vargas catheter for urinary retention. Nonoliguric. Resting in bed. Not a reliable historian. Blood pressure stable. Vital signs are stable. HEENT: Head exam is unremarkable. LUNGS: Breath sounds decreased. HEART: Rate and Rhythm are regular. ABDOMEN: Soft, no distention. EXTREMITITES: Trace edema. Objective - Vital Signs Vital signs: Vital Signs Temp 98.5 F 09/03/21 03:33 Pulse 110 H 09/03/21 03:33 Resp 18 09/03/21 03:33 BP 127/74 09/03/21 03:33 Pulse Ox 95 09/03/21 03:33 Intake & Output 09/02/21 09/03/21 09/03/21 18:59 06:59 18:59 Intake Total 950 Output Total 600 500 Balance 350 -500 Intake: Intake, IV Titration 900 Amount Dextrose 5%-0.45% NaCl 1, 900 000 ml @ 75 mls/hr IV . [id number] [facility] Rx#:[id number] Oral 50 Output: Urine 600 500 Uretheral (Vargas) 200 Stool 0 Other: Voiding Method Indwelling Catheter Indwelling Catheter Indwelling Catheter - Labs CBC & Chem 7: 09/02/21 05:22 09/03/21 05:48 Labs: Abnormal Lab Results - Last 24 Hours (Table) 09/02/21 09/02/21 09/02/21 Range/Units 05:22 05:22 12:03 RBC 3.04 L (4.10-5.20) X 10*6/uL Hgb 8.3 L (12.0-15.0) g/dL Hct 27.3 L (37.2-46.3) % MCHC 30.4 L (32.0-37.0) g/dL RDW 16.4 H (11.5-14.5) % Plt Count 53 L (140-440) X 10*3/uL Plt Count Comment DECREASED A Myelocytes % 1 H (0-0) % Monocytes # (Manual) 0.18 L (0.20-1.00) X 10*3/uL Eosinophils # (Manual) 0 L (0.04-0.35) X 10*3/uL Immature Plt Fraction 17.5 H (1.1-6.1) % Potassium 3.0 L (3.5-5.5) mmol/L Chloride (98-107) mmol/L BUN 37.8 H (9.0-27.0) mg/dL Creatinine (0.52-1.04) mg/dL Est GFR (CKD-EPI)AfAm 43.4 L (60.0-200.0) Est GFR (CKD-EPI)NonAf 37.4 L (60.0-200.0) BUN/Creatinine Ratio 27.00 H (12.00-20.00) Ratio Glucose 125 H (70-110) mg/dL POC Glucose (mg/dL) 135 H (75-99) mg/dL Calcium 8.5 L (8.7-10.3) mg/dL 09/02/21 09/03/21 Range/Units 16:42 05:48 RBC (4.10-5.20) X 10*6/uL Hgb (12.0-15.0) g/dL Hct (37.2-46.3) % MCHC (32.0-37.0) g/dL RDW (11.5-14.5) % Plt Count (140-440) X 10*3/uL Plt Count Comment Myelocytes % (0-0) % Monocytes # (Manual) (0.20-1.00) X 10*3/uL Eosinophils # (Manual) (0.04-0.35) X 10*3/uL Immature Plt Fraction (1.1-6.1) % Potassium 2.8 L (3.5-5.5) mmol/L Chloride 112 H (98-107) mmol/L BUN 34 H (9.0-27.0) mg/dL Creatinine 1.18 H (0.52-1.04) mg/dL Est GFR (CKD-EPI)AfAm (60.0-200.0) Est GFR (CKD-EPI)NonAf (60.0-200.0) BUN/Creatinine Ratio (12.00-20.00) Ratio Glucose (70-110) mg/dL POC Glucose (mg/dL) 100 H (75-99) mg/dL Calcium (8.7-10.3) mg/dL Microbiology - Last 24 Hours (Table) 08/31/21 06:16 Blood Culture - Preliminary Blood No Growth after 72 hours 08/30/21 05:50 Blood Culture - Preliminary Blood No Growth after 96 hours Assessment and Plan Plan: Assessment: 1. Acute kidney injury secondary to ATN secondary to hypovolemia from vomiting and use of losartan. Creatinine 4.84 on admission - 1.18 today. Creatinine was 1.0 in June 2020. 2. Hyperkalemia secondary to acute kidney injury, metabolic acidosis and losartan. Resolved. Now hypokalemic from poor intake. 3. Metabolic acidosis secondary to acute kidney injury and metformin. On oral bicarbonate. Improved. 4. Diabetes mellitus. 5. Proteus bacteremia and UTI. On antibiotics. 6. Urinary retention status post Vargas catheter placement. No hydronephrosis noted on kidney ultrasound. On Flomax. 7. Hypomagnesemia from poor intake. Replaced. Plan: Maintain IV fluids. Replace potassium and magnesium. Continue to monitor renal function and urine output.
[2021-09-03 09:30] LABS: Basophils % (A) 0 %; Eosinophils % (A) 1 %; HCT 29.9 % (34.0-46.0); HGB 9.1 gm/dL (11.4-16.0); Hypochromasia Moderate; Lymphocytes # (A) 0.9 k/uL (1.0-4.8); Lymphocytes % (A) 16 %; MCH 28.9 pg (25.0-35.0); MCHC 30.6 g/dL (31.0-37.0); MCV 94.5 fL (80.0-100.0); Mean Platelet Volume 12.2; Monocytes # (A) 0.1 k/uL (0-1.0); Monocytes % (A) 2 %; Neutrophils # (A) 4.7 k/uL (1.3-7.7); Neutrophils % (A) 80 %; RBC 3.16 m/uL (3.80-5.40); WBC 5.9 k/uL (3.8-10.6)
[2021-09-03 09:31] LABS: Platelet Count 61 k/uL (150-450)
[2021-09-03] MEDS: PANTOPRAZOLE 40 MG/10 ML VIAL IVP SCH (09:36)
[2021-09-03] MEDS: FERROUS SULFATE 325 MG TAB PO SCH (09:37)
[2021-09-03] MEDS: FAMOTIDINE 20 MG TAB PO SCH (09:37)
[2021-09-03] MEDS: ASPIRIN 81 MG PO SCH (09:38)
[2021-09-03] MEDS: CYANOCOBALAMIN 500 MCG TAB PO SCH (09:41)
[2021-09-03 11:36] LABS: Glucose,Whole Blood 139 mg/dL (75-99)
[2021-09-03] MEDS: POTASSIUM CHLORIDE 20 MEQ in WATER FOR INJECTION 1 100ML.BAG IVPB SCH ×3 (12:35→15:55)
--- NOTE | 2021-09-03 13:52 | P.PN ---
Subjective Progress Note Date: 09/03/21 71-year-old female came in with altered mental status found to have acute renal failure patient baseline creatinine is around 1 patient present creatinine is 4.84 patient had history of stroke in the past mostly bedbound. Patient has 1/5 strength in bilateral lower extremities. Patient has bilateral lower extremity edema. Echocardiogram is not available at this time and this hospital system. Patient also has admitted potassium. Patient is alert oriented times close to 2 when I evaluated the patient although she thought it's 2026. Patient is negative for COVID-19. Patient is receiving IV normal saline at 1 30 mL per hour. Patient had an episode of nausea and vomiting last night. Patient is on Lasix. Patient is not on any nonsteroidal anti-inflammatory medications. 08/31/2021 Patient fell today resting bed. She is only arousable to painful saline with sternal rub even with that there was minimal verbal response. She seems fatigued. Brain CT on admission yesterday morning dose show cerebral atrophy with small lacunar infarct left internal capsule. No acute abnormality. Blood cultures are showing Proteus species, continues with IV Rocephin 2 g every 24 hours while cultures are finalized repeat blood cultures were taken today. Urine culture is preliminary. Labs today show white count 5.9, hemoglobin 9.5, sodium 137, potassium 3.8, BUN 53, creatinine 3, glucose 150s, hemoglobin A1c 6.8. Magnesium 1.6. Patient received 2 bags of magnesium today, losartan discontinued, Lasix discontinued, patient on 0.9 at 75 with oral sodium bicarbonate. Repeat chest x-ray today shows probable basilar atelectasis difficult to exclude pneumonia there may be underlying interstitial lung disease. Vitals, 91% on room air, heart rate 124, blood pressure 95/65 and she is afebrile. She is being followed by nephrology and consult with ID services today for positive blood cultures. Indwelling catheter in place, hematuria seems to be improving. Patient on Flomax for urinary retention. 09/01/2021 Patient evaluated today in room, she is minimally arousable to voice and physical stimuli. She is being followed closely by ID, cardiology, nephrology services. Cardiology was consulted today for tachycardia after review of telemetry and echocardiogram rhythm determined as sinus tachycardia with PACS to continue with metoprolol 50 mg PO TID and switch to IV metoprolol if unable to tolerate oral medications. Echocardiogram was completed which shows an EF of greater than 55% with mild mitral regurgitation and mild tricuspid regurgitation. Current vital signs, afebrile, heart rate 101, blood pressure 117/61 and she is 95% on room air. Blood culture and urine culture finalized to Proteus Mirabillis susceptible to Rocephin with repeat blood cultures showing negative after 24 hours. Labs today show white count 7.35, hemoglobin 8.8, platelet count 89 which is significantly decreased, repeat tomorrow if continues to drop we will stop heparin. Potassium 3.1, sodium 142, BUN 45, creatinine 2, glucose in the 80s, magnesium 2.1. 09/02/2021 Patient today is more alert, she is responding to verbal commands, with equal bilateral hand grasp and spontaneous eye opening. She is not moving her lower extremities but is responding to touch. She appears to have bilateral foot drop. Platelets have decreased significantly since initiating subc heparin, today platelets are 53. Heparin is now on hold. Hemoglobin stable at 8.3, WBC 6.02, sodium 145, potassium 3.0, BUN 37.8 creatinine 1.4, GFR 37.4, blood sugars in the 100's, magnesium 1.9. Patient with low grade fevers today 99, heart rates in the 100's, blood pressure 135/76, 96% on room air. She was moved to the stepdown unit for IV lopressor as she is not tolerating any oral intake. Hopefully tomorrow she is more alert and diet can be advanced if she passes bedside swallow. 09/03/2021 Patient evaluated today on selective. She is now alert oriented, she is able to tell me where she is and the year. She is still fatigued but now appropriate, slightly confused, thought she had a meeting this morning. Patient now able to wiggle toes, equal hand grasp, facial symmetry noted. Mildly tachycardic today 106, blood pressure 126/72, afebrile, room air. Repeat blood culture negative. She passed swallow and diet advanced to Consistent carb, speech evaluation tomorrow. Tolerating oral intake, swallowing pills, will discontinue IV lopressor and put pt back on metoprolol. Labs today hgb 61, platelet count 61, sodium 143, potassium 2.8, chloride 112, BUN 34, Creat 1.18, magnesium 1.7, blood glucose stable. Hematuria seems to be improving, urine in drainage tubing clear yellow. ROS Constitutional: Denied any fatigue denied any fever. Cardio vascular: denied any chest pain, palpitations Gastrointestinal denied any nausea vomiting, reports mild abominal discomfort Pulmonary: Denied any shortness of breath cough Neurologic denied any new focal deficits All inpatient medications were reviewed and appropriate changes in these medications as dictated in the interval history and assessment and plan. PHYSICAL EXAMINATION: GENERAL: The patient is alert and oriented x2-3, More alert. Well developed, well nourished. HEENT: Pupils are round and equally reacting to light. EOMI. No scleral icterus. No conjunctival pallor. Normocephalic, atraumatic. No pharyngeal erythema. No thyromegaly. CARDIOVASCULAR: S1 and S2 present. No murmurs, rubs, or gallops. PULMONARY: Chest is clear to auscultation, no wheezing or crackles. ABDOMEN: Soft, Mild suprapubic tenderness with palpation, nondistended, normoactive bowel sounds. No palpable organomegaly. MUSCULOSKELETAL: No joint swelling or deformity. EXTREMITIES: No cyanosis, clubbing, mod. peripheral edema. NEUROLOGICAL: Patient able to wiggle toes, no asymmetry noted strength pacheco SKIN: No rashes. Assessment and plan -Acute renal failure: Probably secondary to acute tubular Necrosis from hypovolemia. Patient does have proteinuria, nephrology consult, with hematuria and retention, creatinine today 1.18 -Bacteremia with proteus miribilis on IV rocephin -Urinary tract infection with urine culture showing positive for proteus miribillis on IV rocephin -Altered mental status secondary to toxic and metabolic encepholapthy multifactorial with component of UTI, bactermia, and acute kidney injury, brain CT showing small lacunar infarct left internal capsule with no acute abnormality, improving now alert today, appropriate -Hyperkalemia secondary to renal failure and losartan, losartan is being held at this time, now with hypokalemia, replaced per protocol -Hypomagnesemia secondary to poor oral intake, replace per protocol -Mild hematuria, will need urology outpatient, appears to be improving however. -Anion gap and non-anion gap metabolic acidosis secondary to acute renal failure, lactic acidosis from metformin which is being held -Thrombocytopenia after initiation of subcu heparin, heparin is now on hold continue to monitor platelets, count 61 -type 2 diabetes mellitus: Patient on sliding scale insulin -Leukocytosis, secondary to UTI and also bacteremia, resolved at this time, continue with Rocephin -Hyponatremia secondary to renal dysfunction and poor oral intake -History of stroke with some baseline vascular dementia -Generalized medical debility secondary to previous stroke patient is mostly bedbound and a long-term [place] [facility] resident -Hypertension DVT prophylaxis: Subcutaneous heparin GI Prophlyaxis: Protonix FULL CODE Plan Telemetry Continue with IV antibiotics Replace electrolytes Neuro checks Repeat labs in AM Prognosis guarded Objective - Vital Signs Vital signs: Vital Signs Temp 98.8 F 09/03/21 09:45 Pulse 106 H 09/03/21 09:45 Resp 18 09/03/21 09:45 BP 126/72 09/03/21 09:45 Pulse Ox 94 L 09/03/21 09:45 Intake & Output 09/02/21 09/03/21 09/03/21 18:59 06:59 18:59 Intake Total 950 10 Output Total 600 500 Balance 350 -500 10 Intake: IV 10 Invasive Line 3 10 Intake, IV Titration 900 Amount Dextrose 5%-0.45% NaCl 1, 900 000 ml @ 75 mls/hr IV . [id number] [facility] Rx#:[id number] Oral 50 Output: Urine 600 500 Uretheral (Vargas) 200 Stool 0 Other: Voiding Method Indwelling Catheter Indwelling Catheter Indwelling Catheter # Bowel Movements 1 - Labs CBC & Chem 7: 09/03/21 05:48 09/03/21 05:48 Labs: Abnormal Lab Results - Last 24 Hours (Table) 09/02/21 09/03/21 09/03/21 Range/Units 16:42 05:48 05:48 RBC 3.16 L (3.80-5.40) m/uL Hgb 9.1 L (11.4-16.0) gm/dL Hct 29.9 L (34.0-46.0) % MCHC 30.6 L (31.0-37.0) g/dL RDW 16.0 H (11.5-15.5) % Plt Count 61 L (150-450) k/uL Lymphocytes # 0.9 L (1.0-4.8) k/uL Potassium 2.8 L (3.5-5.1) mmol/L Chloride 112 H (98-107) mmol/L BUN 34 H (7-17) mg/dL Creatinine 1.18 H (0.52-1.04) mg/dL POC Glucose (mg/dL) 100 H (75-99) mg/dL 09/03/21 Range/Units 11:34 RBC (3.80-5.40) m/uL Hgb (11.4-16.0) gm/dL Hct (34.0-46.0) % MCHC (31.0-37.0) g/dL RDW (11.5-15.5) % Plt Count (150-450) k/uL Lymphocytes # (1.0-4.8) k/uL Potassium (3.5-5.1) mmol/L Chloride (98-107) mmol/L BUN (7-17) mg/dL Creatinine (0.52-1.04) mg/dL POC Glucose (mg/dL) 139 H (75-99) mg/dL Microbiology - Last 24 Hours (Table) 08/31/21 06:16 Blood Culture - Preliminary Blood No Growth after 72 hours 08/30/21 05:50 Blood Culture - Preliminary Blood No Growth after 96 hours
[2021-09-03] MEDS: METOPROLOL TARTRATE 50 MG TAB PO SCH ×2 (14:55→20:32)
[2021-09-03 16:15] LABS: Glucose,Whole Blood 175 mg/dL (75-99)
[2021-09-03] MEDS: TAMSULOSIN 0.4 MG CAP.ER.24H PO SCH (18:19)
[2021-09-03 20:11] LABS: Glucose,Whole Blood 158 mg/dL (75-99)
[2021-09-03] MEDS: ATORVASTATIN 40 MG TAB PO SCH (20:32)
--- NOTE | 2021-09-03 22:05 | P.PN ---
Subjective Progress Note Date: 09/02/21 Principal diagnosis: Proteus urinary tract infection and bacteremia Patient is 71-year-old female who has been brought in the hospital for mental status changes concerning for urinary tract infection now with evidence of secondary bacteremia. Ultrasound of the abdomen did not show any hydronephrosis and there was evidence of cystitis On today's evaluation that is 09/02/2021, the patient continues to be afebrile, the patient is slightly more awake and alert today, breathing comfortable improvement, denies any chest pain no abdominal pain, no vomiting or diarrhea h as been reported with nursing staff Objective - Vital Signs Vital signs: Vital Signs Temp 99.0 F 09/02/21 17:05 Pulse 102 H 09/02/21 17:05 Resp 18 09/02/21 17:05 BP 138/67 09/02/21 17:05 Pulse Ox 96 09/02/21 17:05 Intake & Output 09/01/21 09/02/21 09/02/21 18:59 06:59 18:59 Intake Total 950 Output Total 1150 1800 600 Balance -1150 -1800 350 Intake: Intake, IV Titration 900 Amount Dextrose 5%-0.45% NaCl 1, 900 000 ml @ 75 mls/hr IV . [id number] [facility] Rx#:[id number] Oral 50 Output: Urine 1150 1800 600 Uretheral (Vargas) 550 200 Other: Voiding Method Indwelling Catheter Indwelling Catheter Indwelling Catheter # Bowel Movements 0 - Exam GENERAL DESCRIPTION: An elderly female lying in bed in no distress RESPIRATORY SYSTEM: Unlabored breathing , decreased breath sounds at bases HEART: S1 S2 regular rate and rhythm , ABDOMEN: Soft , mild tenderness EXTREMITIES: No edema fee - Labs CBC & Chem 7: 09/03/21 05:48 09/03/21 05:48 Labs: Abnormal Lab Results - Last 24 Hours (Table) 09/01/21 09/02/21 09/02/21 Range/Units 23:47 05:22 05:22 RBC 2.94 L 3.04 L (3.80-5.40) m/uL Hgb 8.5 L 8.3 L (11.4-16.0) gm/dL Hct 27.4 L 27.3 L (34.0-46.0) % MCHC 30.4 L (32.0-37.0) g/dL RDW 15.8 H 16.4 H (11.5-15.5) % Plt Count 66 L D 53 L (150-450) k/uL Plt Count Comment DECREASED A Myelocytes % 1 H (0-0) % Monocytes # (Manual) 0.18 L (0.20-1.00) X 10*3/uL Eosinophils # (Manual) 0 L (0.04-0.35) X 10*3/uL Immature Plt Fraction 17.5 H (1.1-6.1) % Potassium 3.0 L (3.5-5.5) mmol/L BUN 37.8 H (9.0-27.0) mg/dL Est GFR (CKD-EPI)AfAm 43.4 L (60.0-200.0) Est GFR (CKD-EPI)NonAf 37.4 L (60.0-200.0) BUN/Creatinine Ratio 27.00 H (12.00-20.00) Ratio Glucose 125 H (70-110) mg/dL POC Glucose (mg/dL) (75-99) mg/dL Calcium 8.5 L (8.7-10.3) mg/dL 09/02/21 09/02/21 09/02/21 Range/Units 07:08 12:03 16:42 RBC (3.80-5.40) m/uL Hgb (11.4-16.0) gm/dL Hct (34.0-46.0) % MCHC (32.0-37.0) g/dL RDW (11.5-15.5) % Plt Count (150-450) k/uL Plt Count Comment Myelocytes % (0-0) % Monocytes # (Manual) (0.20-1.00) X 10*3/uL Eosinophils # (Manual) (0.04-0.35) X 10*3/uL Immature Plt Fraction (1.1-6.1) % Potassium (3.5-5.5) mmol/L BUN (9.0-27.0) mg/dL Est GFR (CKD-EPI)AfAm (60.0-200.0) Est GFR (CKD-EPI)NonAf (60.0-200.0) BUN/Creatinine Ratio (12.00-20.00) Ratio Glucose (70-110) mg/dL POC Glucose (mg/dL) 133 H 135 H 100 H (75-99) mg/dL Calcium (8.7-10.3) mg/dL Microbiology - Last 24 Hours (Table) 08/31/21 06:16 Blood Culture - Preliminary Blood No Growth after 48 hours 08/30/21 05:50 Blood Culture - Preliminary Blood No Growth after 72 hours 08/30/21 05:57 Blood Culture Gram Stain - Final Blood Blood Culture - Final Proteus mirabilis 08/30/21 07:31 Urine Culture - Final Urine,Catheterized Proteus mirabilis Assessment and Plan (1) Gram-negative bacteremia Current Visit: Yes Status: Acute Code(s): R78.81 - BACTEREMIA SNOMED Code(s): 061106506079 Plan: Patient with gram-negative bacteremia secondary to the urinary source, both urine and blood are showing Proteus, ultrasound was negative for any hydronephrosis patient has clinically responded to Rocephin to continue while monitoring clinical course closely Time with Patient: Less than 30
--- NOTE | 2021-09-03 22:06 | P.PN ---
Subjective Progress Note Date: 09/03/21 Principal diagnosis: Proteus urinary tract infection and bacteremia Patient is 71-year-old female who has been brought in the hospital for mental status changes concerning for urinary tract infection now with evidence of secondary bacteremia. Ultrasound of the abdomen did not show any hydronephrosis and there was evidence of cystitis On today's evaluation that is 09/03/2021, the patient denies any fever or any chills, the patient is more awake and alert today, the patient breathing comfortable improvement, the patient denies any chest pain no abdominal pain, no vomiting or diarrhea has been reported with nursing staff Objective - Vital Signs Vital signs: Vital Signs Temp 97.8 F 09/03/21 14:52 Pulse 117 H 09/03/21 14:52 Resp 16 09/03/21 14:52 BP 142/74 09/03/21 14:52 Pulse Ox 94 L 09/03/21 14:52 Intake & Output 09/03/21 09/03/21 09/04/21 06:59 18:59 06:59 Intake Total 10 Output Total 500 Balance -500 10 Intake: IV 10 Invasive Line 3 10 Output: Urine 500 Stool 0 Other: Voiding Method Indwelling Catheter Indwelling Catheter # Bowel Movements 1 - Exam GENERAL DESCRIPTION: An elderly female lying in bed in no distress RESPIRATORY SYSTEM: Unlabored breathing , decreased breath sounds at bases HEART: S1 S2 regular rate and rhythm , ABDOMEN: Soft , mild tenderness EXTREMITIES: No edema fee - Labs CBC & Chem 7: 09/03/21 05:48 09/03/21 05:48 Labs: Abnormal Lab Results - Last 24 Hours (Table) 09/03/21 09/03/21 09/03/21 Range/Units 05:48 05:48 11:34 RBC 3.16 L (3.80-5.40) m/uL Hgb 9.1 L (11.4-16.0) gm/dL Hct 29.9 L (34.0-46.0) % MCHC 30.6 L (31.0-37.0) g/dL RDW 16.0 H (11.5-15.5) % Plt Count 61 L (150-450) k/uL Lymphocytes # 0.9 L (1.0-4.8) k/uL Potassium 2.8 L (3.5-5.1) mmol/L Chloride 112 H (98-107) mmol/L BUN 34 H (7-17) mg/dL Creatinine 1.18 H (0.52-1.04) mg/dL POC Glucose (mg/dL) 139 H (75-99) mg/dL 09/03/21 09/03/21 Range/Units 16:13 20:07 RBC (3.80-5.40) m/uL Hgb (11.4-16.0) gm/dL Hct (34.0-46.0) % MCHC (31.0-37.0) g/dL RDW (11.5-15.5) % Plt Count (150-450) k/uL Lymphocytes # (1.0-4.8) k/uL Potassium (3.5-5.1) mmol/L Chloride (98-107) mmol/L BUN (7-17) mg/dL Creatinine (0.52-1.04) mg/dL POC Glucose (mg/dL) 175 H 158 H (75-99) mg/dL Microbiology - Last 24 Hours (Table) 08/31/21 06:16 Blood Culture - Preliminary Blood No Growth after 72 hours 08/30/21 05:50 Blood Culture - Preliminary Blood No Growth after 96 hours Assessment and Plan (1) Gram-negative bacteremia Current Visit: Yes Status: Acute Code(s): R78.81 - BACTEREMIA SNOMED Code(s): 447721626612 Plan: Patient with gram-negative bacteremia secondary to the urinary source, both urine and blood are showing Proteus, ultrasound was negative for any hydronephrosis patient has clinically responded to Rocephin to continue while inpatient and transitioned to oral antibiotics on discharge Time with Patient: Less than 30
[2021-09-04] MEDS: DEXTROSE 5%-0.45% NACL 1,000 ML IV SCH ×2 (05:02→09:20)
[2021-09-04 06:03] LABS: Glucose,Whole Blood 213 mg/dL (75-99)
[2021-09-04] MEDS: ACETAMINOPHEN TAB 325 MG TAB PO SCH ×3 (06:08→17:51)
[2021-09-04] MEDS: INSULIN ASPART (NovoLOG) 100 UNIT/ML VIAL SQ SCH ×4 (06:09→20:15)
[2021-09-04] MEDS: INSULIN DETEMIR (LEVEMIR) 100 UNIT/ML SYR SQ SCH (06:09)
[2021-09-04 06:36] LABS: Basophils % (A) 0 %; Eosinophils # (A) 0.2 k/uL (0-0.7); Eosinophils % (A) 2 %; HCT 29.7 % (34.0-46.0); HGB 8.8 gm/dL (11.4-16.0); Hypochromasia Marked; Lymphocytes % (A) 10 %; MCH 28.6 pg (25.0-35.0); MCHC 29.6 g/dL (31.0-37.0); MCV 96.5 fL (80.0-100.0); Mean Platelet Volume 10.3; Monocytes # (A) 0.2 k/uL (0-1.0); Monocytes % (A) 2 %; Neutrophils # (A) 8.1 k/uL (1.3-7.7); Neutrophils % (A) 85 %; RBC 3.07 m/uL (3.80-5.40); RDW 15.5 % (11.5-15.5); WBC 9.4 k/uL (3.8-10.6)
[2021-09-04 06:40] LABS: Platelet Count 90 k/uL (150-450)
[2021-09-04 06:46] LABS: Calcium 8.7 mg/dL (8.4-10.2); Magnesium 1.7 mg/dL (1.6-2.3); Potassium 3.3 mmol/L (3.5-5.1)
[2021-09-04] MEDS: FERROUS SULFATE 325 MG TAB PO SCH (07:36)
[2021-09-04] MEDS: ASPIRIN 81 MG PO SCH (07:36)
[2021-09-04] MEDS: CYANOCOBALAMIN 500 MCG TAB PO SCH (07:36)
[2021-09-04] MEDS: METOPROLOL TARTRATE 50 MG TAB PO SCH ×2 (07:36→20:26)
[2021-09-04] MEDS: PANTOPRAZOLE 40 MG/10 ML VIAL IVP SCH (07:36)
[2021-09-04] MEDS: FAMOTIDINE 20 MG TAB PO SCH (07:38)
[2021-09-04] MEDS ORDERED: Potassium Replacement Protocol 1 EACH MISC MISCELLANE PRN (09:10)
[2021-09-04] MEDS ORDERED: POTASSIUM CHLORIDE ER 20 MEQ TAB.ER PO ONE (09:10)
[2021-09-04] MEDS: POTASSIUM CHLORIDE ER 20 MEQ TAB.ER PO SCH ×2 (09:14→09:15)
[2021-09-04] MEDS: MAGNESIUM SULFATE-D5W PMX 1 GM in DEXTROSE/WATER 1 100ML.BAG IVPB SCH ×2 (09:19→11:20)
[2021-09-04 11:44] LABS: Glucose,Whole Blood 207 mg/dL (75-99)
--- NOTE | 2021-09-04 13:19 | P.PN ---
Subjective Principal diagnosis: Patient is seen for follow-up for acute kidney injury. Renal function has improved. Patient has been maintained on IV fluids. She does have a Vargas catheter for urine retention. Creatinine is down to 0.9 mg/dL. Objective - Vital Signs Vital signs: Vital Signs Temp 98.9 F 09/04/21 12:14 Pulse 80 09/04/21 12:14 Resp 16 09/04/21 12:14 BP 132/74 09/04/21 12:14 Pulse Ox 96 09/04/21 12:14 Intake & Output 09/03/21 09/04/21 09/04/21 18:59 06:59 18:59 Intake Total 10 1260 110 Output Total 625 Balance 10 635 110 Intake: IV 10 10 Invasive Line 3 10 10 Intake, IV Titration 900 Amount Dextrose 5%-0.45% NaCl 1, 900 000 ml @ 75 mls/hr IV . [id number] [facility] Rx#:[id number] Oral 360 100 Output: Urine 625 Uretheral (Vargas) 625 Other: Voiding Method Indwelling Catheter Indwelling Catheter Indwelling Catheter # Bowel Movements 1 1 1 - Exam On examination patient is comfortable awake alert oriented 3. Examination of the heart S1 and S2 Examination lungs bilateral breath sounds are heard Abdomen is soft nontender Examination lower extremities shows edema trace bilaterally. - Labs CBC & Chem 7: 09/04/21 05:33 09/04/21 05:33 Labs: Abnormal Lab Results - Last 24 Hours (Table) 09/03/21 09/03/21 09/04/21 Range/Units 16:13 20:07 05:33 RBC (3.80-5.40) m/uL Hgb (11.4-16.0) gm/dL Hct (34.0-46.0) % MCHC (31.0-37.0) g/dL Plt Count (150-450) k/uL Neutrophils # (1.3-7.7) k/uL Potassium 3.3 L (3.5-5.1) mmol/L Chloride 113 H (98-107) mmol/L BUN 28 H (7-17) mg/dL Glucose 194 H (74-99) mg/dL POC Glucose (mg/dL) 175 H 158 H (75-99) mg/dL 09/04/21 09/04/21 09/04/21 Range/Units 05:33 06:01 11:42 RBC 3.07 L (3.80-5.40) m/uL Hgb 8.8 L (11.4-16.0) gm/dL Hct 29.7 L (34.0-46.0) % MCHC 29.6 L (31.0-37.0) g/dL Plt Count 90 L (150-450) k/uL Neutrophils # 8.1 H (1.3-7.7) k/uL Potassium (3.5-5.1) mmol/L Chloride (98-107) mmol/L BUN (7-17) mg/dL Glucose (74-99) mg/dL POC Glucose (mg/dL) 213 H 207 H (75-99) mg/dL Microbiology - Last 24 Hours (Table) 08/31/21 06:16 Blood Culture - Preliminary Blood No Growth after 96 hours 08/30/21 05:50 Blood Culture - Preliminary Blood No Growth after 120 hours Assessment and Plan Assessment: 1. Acute kidney injury secondary to ATN from volume depletion in the setting of use of angiotensin receptor blockers. Creatinine had peaked to 4.8 currently down to 0.9 mg/dL. This appears to be her baseline we have a creatinine of 1.0 in June 2020 2. Hyperkalemia associated with acute kidney injury metabolic acidosis and losartan. Currently resolved 3. Metabolic acidosis secondary to acute kidney injury and metformin. Maintai audra on oral sodium bicarb. Improved 4. Type 2 diabetes 5. Proteus bacteremia and urinary tract infection maintained on antibiotics 6. Urinary tract infection status post Vargas catheter placement. No evidence of hydronephrosis on ultrasound. Maintained on Flomax 7. Hypomagnesemia from poor oral intake status post replacement Plan: Continue antibiotics and encouraged to increase oral intake.
--- NOTE | 2021-09-04 14:38 | P.DS ---
Providers Date of admission: 08/30/21 06:37 Attending physician: Aravind Campbell Consults: 08/30/21 06:47 Consult Physician Routine Consulting Provider: Lloyd Hearn Consult Reason/Comments: Acute renal failure Do you want consulting provider notified?: Yes 08/31/21 08:44 Consult Physician Urgent Consulting Provider: Lester Abdi Consult Reason/Comments: proteus, positive blood cultures Do you want consulting provider notified?: Yes 08/31/21 16:34 Consult Physician Routine Consulting Provider: Tarik Freed Consult Reason/Comments: a fib, tachycardia Do you want consulting provider notified?: Yes Primary care physician: Ondina Alvares Hospital Course: Final Diagnosis -Acute renal failure: Secondary to acute tubular Necrosis from hypovolemia. -Bacteremia with proteus miribilis on IV rocephin -Urinary tract infection, complicated, with urine culture showing positive for proteus miribillis on IV rocephin -Altered mental status secondary to toxic and metabolic encepholapthy multifacto rial with component of UTI, bactermia, and acute kidney injury, brain CT showing small lacunar infarct left internal capsule with no acute abnormality, resolved -Hyperkalemia secondary to renal failure and losartan, -Hypomagnesemia secondary to poor oral intake, replace per protocol -Mild hematuria, will need urology outpatient, appears to be improving however. -Anion gap and non-anion gap metabolic acidosis secondary to acute renal failure, lactic acidosis from metformin which is being held, Bicarb Gtt -Thrombocytopenia after initiation of subcu heparin, heparin is now on hold continue to monitor platelets, count 61 -type 2 diabetes mellitus: Patient on sliding scale insulin -Leukocytosis, secondary to UTI and also bacteremia, resolved at this time, continue with Rocephin -Hyponatremia secondary to renal dysfunction and poor oral intake -History of stroke with some baseline vascular dementia -Generalized medical debility secondary to previous stroke patient is mostly bedbound and a long-term detention resident -Hypertension FULL CODE Discharge Disposition Patient cleared medically for discharge back to [facility]. Patient is also requesting a dermatology referral for a lesion behind her left ear and and her neck. She would also like to see podiatry upon return to have her toe nails cut. We resumed losartan at 25 mg PO daily, and discontinued norvasc and lasix. Repeat labs in 2 days. Hospital Course This is a pleasant 71-year-old female who presents to the hospital from detention for altered mental status. Patient is bedbound, strength on admission lower extremities 1/5 strength. Labs on admission show white count 26.7, hemoglobin stable 11.4, sodium 134, potassium 5.9, chloride 102, CO2 15, BUN 52, creatinine 4.84, glucose 262, osmolality serum 307, troponin negative. Urinalysis shows turbid urine with a pH of 8.5, 3+ protein, trace glucose, large ketones, large leukocyte esterase, greater than 182 RBCs, 132 wbc's with occasional bacteria and mucus. Covid PCR was not detected. Urine culture was positive for Proteus Miribilis. Blood culture also positive for Proteus Miribilis. Also drug resistance. Was treated appropriately with IV Rocephin 2 g every 24 hours. Patient admitted with consults placed to Infectious disease, nephrology. Patients norvasc, losartan and lasix placed on hold due to elevated creatitine. Vargas catheter was inserted for urinary retention with visible hematuria that has since resolved, she was started on Flomax. During this admission patient was lethargic and minimally arousable due to UTI with sepsis and bacteremia. Brain CT on admission EC shows cerebral atrophy, small lacunar infarct left internal capsule with no acute abnormality. Chest x-ray shows poor inspiration no heart failure. Abdomen liver ultrasound shows no evidence for hydronephrosis, no nephrolithiasis, no masses identified. There was indeterminate area adjacent to the liver that could be related to dilated bowel or stomach but is indeterminate. Correlate to exclude cystitis. Ascites. Patient also significant tachycardia this admission due to bacteremia, Cardiology evluated the patient who reviewed EKG and there is no evidence for atrial fibrillation, echo cardiogram revealed normal left ventricular systolic function patient was continued on metoprolol 50 mg 3 times a day. She did receive IV Lopressor in the interim until she was able to tolerate oral intake. On 09/03/2021 patient's mentation improved drastically and she is alert and oriented 3 however still very weak and lethargic. She is able to answer questions appropriately, wiggling her toes and has appropriate and equal hand grasp, strength in upper extremities and no facial asymmetry noted. Patient has remained afebrile this admission. Blood pressure 130/60s, 96% on room air. 09/04/2021 Patient evaluated today resting the patient is alert and oriented 3 appropriate. She says overall she is doing much better. She feels back to her baseline. Vital signs today are stable. Labs today show white count 9.4, hemoglobin 8.8, platelet count 90, sodium 141, potassium 3.3, platelets 113, BUN 20, creatinine 0.95, blood glucose in the 200s, magnesium 1.7. She was given IV magnesium and by mouth potassium today. She'll be resumed on her oral potassium home dose as well as oral magnesium. Repeat labs in 2 days. Lungs are clear, S1-S2 auscultated, abdomen soft nontender. Bowels are moving. Continue antibiotics on discharge Ceftin 500 mg PO BID for 10 more days. Temp 98.9, heart rate 80, blood pressure 132/74, 96% on room air. Please see medication reconciliation for a list of current medications. Thank you for allowing us to participate in the care of this patient. Patient Condition at Discharge: Fair Plan - Discharge Summary Discharge Rx Participant: No New Discharge Prescriptions: New Tamsulosin [Flomax] 0.4 mg PO PC-SUPPER Magnesium Oxide [Mag-Ox] 400 mg PO DAILY tab Acetaminophen Tab [Tylenol] 650 mg PO Q6HR PRN tab PRN Reason: Mild Pain Or Fever > 100.5 Losartan [Cozaar] 25 mg PO DAILY #6 tab Cefuroxime Axetil [Ceftin] 500 mg PO BID 10 Days #20 tab Continue Sennosides [Senna] 8.6 mg PO DAILY PRN PRN Reason: Constipation INSULIN ASPART (NovoLOG) [NovoLOG (formulary)] See Protocol SQ ACHS Acetaminophen [Tylenol] 325 mg PO TID@0700,1300,1900 Metoprolol Tartrate [Lopressor] 50 mg PO TID@0700,1300,1900 Pantoprazole Sodium [Protonix] 40 mg PO DAILY@0700 Febuxostat [Uloric] 80 mg PO DAILY Potassium Chloride [Klor-Con 10 ER] 10 meq PO DAILY@0700 Insulin Detemir [Levemir Flextouch Pen] 15 units SQ DAILY Ferrous Sulfate [Iron (65 MG Elemental)] 325 mg PO DAILY Cyanocobalamin [Vitamin B-12] 500 mcg PO DAILY Aspirin 81 mg PO DAILY Dermaceptin 1 applic TOPICAL TID metFORMIN HCL [Glucophage] 1,000 mg PO BID@0700,1600 Povidone-Iodine [Betadine] 1 applic TOPICAL HS Menthol [Biofreeze] 1 applic TOPICAL BID Atorvastatin [Lipitor] 40 mg PO HS@1999 Prostat 30 ml PO DAILY Magnesium Hydroxide [Milk of Magnesia] 2,400 mg PO DAILY PRN PRN Reason: Constipation Discontinued amLODIPine [Norvasc] 10 mg PO HS@1999 Losartan Potassium [Cozaar] 100 mg PO DAILY Furosemide [Lasix] 20 mg PO DAILY@0700 Discharge Medication List Acetaminophen [Tylenol] 325 mg PO TID@0700,1300,1900 08/30/21 [History] Aspirin 81 mg PO DAILY 08/30/21 [History] Atorvastatin [Lipitor] 40 mg PO HS@199908/30/21 [History] Cyanocobalamin [Vitamin B-12] 500 mcg PO DAILY 08/30/21 [History] Dermaceptin 1 applic TOPICAL TID 08/30/21 [History] Febuxostat [Uloric] 80 mg PO DAILY 08/30/21 [History] Ferrous Sulfate [Iron (65 MG Elemental)] 325 mg PO DAILY 08/30/21 [History] INSULIN ASPART (NovoLOG) [NovoLOG (formulary)] See Protocol SQ ACHS 08/30/21 [History] Insulin Detemir [Levemir Flextouch Pen] 15 units SQ DAILY 08/30/21 [History] Magnesium Hydroxide [Milk of Magnesia] 2,400 mg PO DAILY PRN 08/30/21 [History] Menthol [Biofreeze] 1 applic TOPICAL BID 08/30/21 [History] Metoprolol Tartrate [Lopressor] 50 mg PO TID@0700,1300,1900 08/30/21 [History] Pantoprazole Sodium [Protonix] 40 mg PO DAILY@0700 08/30/21 [History] Potassium Chloride [Klor-Con 10 ER] 10 meq PO DAILY@0700 08/30/21 [History] Povidone-Iodine [Betadine] 1 applic TOPICAL HS 08/30/21 [History] Prostat 30 ml PO DAILY 08/30/21 [History] Sennosides [Senna] 8.6 mg PO DAILY PRN 08/30/21 [History] metFORMIN HCL [Glucophage] 1,000 mg PO BID@0700,1600 08/30/21 [History] Acetaminophen Tab [Tylenol] 650 mg PO Q6HR PRN tab 09/04/21 [Rx] Cefuroxime Axetil [Ceftin] 500 mg PO BID 10 Days #20 tab 09/04/21 [Rx] Losartan [Cozaar] 25 mg PO DAILY #6 tab 09/04/21 [Rx] Magnesium Oxide [Mag-Ox] 400 mg PO DAILY tab 09/04/21 [Rx] Tamsulosin [Flomax] 0.4 mg PO PC-SUPPER 09/04/21 [Rx] Follow up Appointment(s)/Referral(s): Ondina Alvares DO [Primary Care Provider] - 1-2 days [facility] [place], [NON-STAFF] - As Needed Ambulatory/Diagnostic Orders: Basic Metabolic Panel [LAB.AMB] Time Frame: 2 Days, Location: None Selected Complete Blood Count w/diff [LAB.AMB] Time Frame: 2 Days, Location: None Selected Magnesium [LAB.AMB] Time Frame: 2 Days, Location: None Selected Patient Instructions/Handouts: Altered Mental Status (ED) Discharge Disposition: TRANSFER TO SNF/ECF
[2021-09-04 16:37] LABS: Glucose,Whole Blood 185 mg/dL (75-99)
[2021-09-04] MEDS: TAMSULOSIN 0.4 MG CAP.ER.24H PO SCH (18:09)
[2021-09-04 20:12] LABS: Glucose,Whole Blood 129 mg/dL (75-99)
[2021-09-04] MEDS: ATORVASTATIN 40 MG TAB PO SCH (20:26)
--- NOTE | 2021-09-04 23:45 | P.PN ---
Subjective Progress Note Date: 09/04/21 Principal diagnosis: Proteus urinary tract infection and bacteremia Patient is 71-year-old female who has been brought in the hospital for mental status changes concerning for urinary tract infection now with evidence of secondary bacteremia. Ultrasound of the abdomen did not show any hydronephrosis and there was evidence of cystitis On today's evaluation that is 09/04/2021, the patient remains to be afebrile, the patient remains to be awake and alert, the patient breathing comfortable improvement, the patient denies any chest pain no abdominal pain, no vomiting or diarrhea has been reported with nursing staff Objective - Vital Signs Vital signs: Vital Signs Temp 97.3 F L 09/04/21 20:00 Pulse 103 H 09/04/21 20:00 Resp 18 09/04/21 20:00 BP 131/68 09/04/21 20:00 Pulse Ox 97 09/04/21 20:00 Intake & Output 09/04/21 09/04/21 09/05/21 06:59 18:59 06:59 Intake Total 1260 1450 Output Total 625 400 Balance 635 1050 Intake: IV 10 Invasive Line 3 10 Intake, IV Titration 900 1100 Amount Dextrose 5%-0.45% NaCl 1, 900 900 000 ml @ 75 mls/hr IV . [id number] ERIN Rx#:[id number] Magnesium Sulfate-D5w Pmx 200 1 gm In Dextrose/Water 1 100ml.bag @ 100 mls/hr IVPB Q1H ERIN Rx#: [id number] Oral 360 340 Output: Urine 625 400 Uretheral (Vargas) 625 Other: Voiding Method Indwelling Catheter Indwelling Catheter Indwelling Catheter # Bowel Movements 1 1 - Exam GENERAL DESCRIPTION: An elderly female lying in bed in no distress RESPIRATORY SYSTEM: Unlabored breathing , decreased breath sounds at bases HEART: S1 S2 regular rate and rhythm , ABDOMEN: Soft , mild tenderness EXTREMITIES: No edema fee - Labs CBC & Chem 7: 09/04/21 05:33 09/04/21 05:33 Labs: Abnormal Lab Results - Last 24 Hours (Table) 09/04/21 09/04/21 09/04/21 Range/Units 05:33 05:33 06:01 RBC 3.07 L (3.80-5.40) m/uL Hgb 8.8 L (11.4-16.0) gm/dL Hct 29.7 L (34.0-46.0) % MCHC 29.6 L (31.0-37.0) g/dL Plt Count 90 L (150-450) k/uL Neutrophils # 8.1 H (1.3-7.7) k/uL Potassium 3.3 L (3.5-5.1) mmol/L Chloride 113 H (98-107) mmol/L BUN 28 H (7-17) mg/dL Glucose 194 H (74-99) mg/dL POC Glucose (mg/dL) 213 H (75-99) mg/dL 09/04/21 09/04/21 09/04/21 Range/Units 11:42 16:36 20:10 RBC (3.80-5.40) m/uL Hgb (11.4-16.0) gm/dL Hct (34.0-46.0) % MCHC (31.0-37.0) g/dL Plt Count (150-450) k/uL Neutrophils # (1.3-7.7) k/uL Potassium (3.5-5.1) mmol/L Chloride (98-107) mmol/L BUN (7-17) mg/dL Glucose (74-99) mg/dL POC Glucose (mg/dL) 207 H 185 H 129 H (75-99) mg/dL Microbiology - Last 24 Hours (Table) 08/31/21 06:16 Blood Culture - Preliminary Blood No Growth after 96 hours 08/30/21 05:50 Blood Culture - Preliminary Blood No Growth after 120 hours Assessment and Plan (1) Gram-negative bacteremia Current Visit: Yes Status: Acute Code(s): R78.81 - BACTEREMIA SNOMED Code(s): 508971048337 Plan: Patient with gram-negative bacteremia secondary to the urinary source, both urine and blood are showing Proteus, ultrasound was negative for any hydronephrosis patient has clinically responded to Rocephin to continue while inpatient and transitioned to oral Ceftin 500 mg twice a day for another 10 days this was discussed with nurse practitioner for admitting team working on discharge Time with Patient: Less than 30
[2021-09-05] MEDS: DEXTROSE 5%-0.45% NACL 1,000 ML IV SCH (01:39)
[2021-09-05 06:07] LABS: Glucose,Whole Blood 111 mg/dL (75-99)
[2021-09-05] MEDS: INSULIN ASPART (NovoLOG) 100 UNIT/ML VIAL SQ SCH ×3 (06:15→12:43)
[2021-09-05] MEDS: ACETAMINOPHEN TAB 325 MG TAB PO SCH ×3 (06:15→12:43)
[2021-09-05] MEDS: INSULIN DETEMIR (LEVEMIR) 100 UNIT/ML SYR SQ SCH (06:15)
[2021-09-05] MEDS: PANTOPRAZOLE 40 MG/10 ML VIAL IVP SCH (08:44)
[2021-09-05] MEDS: METOPROLOL TARTRATE 50 MG TAB PO SCH (08:44)
[2021-09-05] MEDS: CYANOCOBALAMIN 500 MCG TAB PO SCH (08:44)
[2021-09-05] MEDS: ASPIRIN 81 MG PO SCH (08:44)
[2021-09-05] MEDS: FAMOTIDINE 20 MG TAB PO SCH (08:45)
[2021-09-05] MEDS: FERROUS SULFATE 325 MG TAB PO SCH (08:45)
[2021-09-05] MEDS ORDERED: MAGNESIUM OXIDE 400 MG TAB PO SCH (09:00)
[2021-09-05 10:44] LABS: Calcium 8.2 mg/dL (8.4-10.2); Potassium 3.1 mmol/L (3.5-5.1)
[2021-09-05 11:35] VITALS: BP 139/61; PULSE 92; RESP 16; TEMP 97.6
[2021-09-05 11:58] LABS: Glucose,Whole Blood 84 mg/dL (75-99)
[2021-09-05] MEDS: TAMSULOSIN 0.4 MG CAP.ER.24H PO SCH (12:43)
[2021-09-05] MEDS ORDERED: POTASSIUM CHLORIDE ER 20 MEQ TAB.ER PO ONE (12:44)
[2021-09-05] MEDS ORDERED: Potassium Replacement Protocol 1 EACH MISC MISCELLANE PRN (12:44)
--- NOTE | 2021-09-05 12:48 | P.DS ---
Providers Date of admission: 08/30/21 06:37 Attending physician: Aravind Campbell Consults: 08/30/21 06:47 Consult Physician Routine Consulting Provider: Lloyd Hearn Consult Reason/Comments: Acute renal failure Do you want consulting provider notified?: Yes 08/31/21 08:44 Consult Physician Urgent Consulting Provider: Lester Abdi Consult Reason/Comments: proteus, positive blood cultures Do you want consulting provider notified?: Yes 08/31/21 16:34 Consult Physician Routine Consulting Provider: Tarik Freed Consult Reason/Comments: a fib, tachycardia Do you want consulting provider notified?: Yes Primary care physician: Ondina Alvares [facility] Course: Final Diagnosis -Acute renal failure: Secondary to acute tubular Necrosis from hypovolemia. -Bacteremia with proteus miribilis on IV rocephin -Urinary tract infection, complicated, with urine culture showing positive for proteus miribillis on IV rocephin -Altered mental status secondary to toxic and metabolic encepholapthy multifacto rial with component of UTI, bactermia, and acute kidney injury, brain CT showing small lacunar infarct left internal capsule with no acute abnormality, resolved -Hyperkalemia secondary to renal failure and losartan, now hypokalemic, oral supplement -Hypomagnesemia secondary to poor oral intake, replace per protocol -Mild hematuria, will need urology outpatient, appears to be improving however. -Anion gap and non-anion gap metabolic acidosis secondary to acute renal failure, lactic acidosis from metformin which is being held, Bicarb Gtt -Thrombocytopenia after initiation of subcu heparin, heparin is now on hold continue to monitor platelets, count 61 -type 2 diabetes mellitus: Patient on sliding scale insulin -Leukocytosis, secondary to UTI and also bacteremia, resolved at this time, continue with Rocephin -Hyponatremia secondary to renal dysfunction and poor oral intake -History of stroke with some baseline vascular dementia as well as right sided weakness -Generalized medical debility secondary to previous stroke patient is mostly bedbound and a long-term penitentiary resident -Hypertension FULL CODE Discharge Disposition Patient cleared medically for discharge back to [facility]. Patient is also requesting a dermatology referral for a lesion behind her left ear and and her neck. She would also like to see podiatry upon return to have her toe nails cut. We resumed losartan at 25 mg PO daily, and discontinued norvasc and lasix. Repeat labs in 2 days. Hospital Course This is a pleasant 71-year-old female who [facility] the [facility] for altered mental status. Patient is bedbound, strength on admission lower extremities 1/5 strength. Labs on admission show white count 26.7, hemoglobin stable 11.4, sodium 134, potassium 5.9, chloride 102, CO2 15, BUN 52, creatinine 4.84, glucose 262, osmolality serum 307, troponin negative. Urinalysis shows turbid urine with a pH of 8.5, 3+ protein, trace glucose, large ketones, large leukocyte esterase, greater than 182 RBCs, 132 wbc's with occasional bacteria and mucus. Covid PCR was not detected. Urine culture was positive for Proteus Miribilis. Blood culture also positive for Proteus Miribilis. Also drug resistance. Was treated appropriately with IV Rocephin 2 g every 24 hours. Patient admitted with consults placed to Infectious disease, nephrology. Patients norvasc, losartan and lasix placed on hold due to elevated creatitine. Vargas catheter was inserted for urinary retention with visible hematuria that has since resolved, she was started on Flomax. During this admission patient was lethargic and minimally arousable due to UTI with sepsis and bacteremia. Brain CT on admission EC shows cerebral atrophy, small lacunar infarct left internal capsule with no acute abnormality. Chest x-ray shows poor inspiration no heart failure. Abdomen liver ultrasound shows no evidence for hydronephrosis, no nephrolithiasis, no masses identified. There was indeterminate area adjacent to the liver that could be related to dilated bowel or stomach but is indeterminate. Correlate to exclude cystitis. Ascites. Patient also significant tachycardia this admission due to bacteremia, Cardiol ogy evluated the patient who reviewed EKG and there is no evidence for atrial fibrillation, echo cardiogram revealed normal left ventricular systolic function patient was continued on metoprolol 50 mg 3 times a day. She did receive IV Lopressor in the interim until she was able to tolerate oral intake. On 09/03/2021 patient's mentation improved drastically and she is alert and oriented 3 however still very weak and lethargic. She is able to answer questions appropriately, wiggling her toes and has appropriate and equal hand grasp, strength in upper extremities and no facial asymmetry noted. Patient has remained afebrile this admission. Blood pressure 130/60s, 96% on room air. 09/05/2021 Patient evaluated today resting in bed. She is alert and oriented 3 she can be confused at times over there is a history of possibly some baseline vascular dementia. She is in the hospital for prolonged period of time, which also exacerbated this. Vital signs she is afebrile, heart rate 97 sinus rhythm, blood pressure 153/72 she is 96% room air. Continues with Vargas catheter, tip was advanced yesterday as it was possibly in the lumen. She denies any pain, nausea vomiting she's incontinent of stool. Patient would like to be discharged back to medical [place] she does not want to continue to stay in the hospital. She is a baseline wheelchair bound, using a alisa lift for transfer with previous history of right sided weakness. She continues to have some right sided weakness in lower extremity, upper extremities are equal able to hold for 10 seconds with no drift, no facial asymmetry noted, no slurred speech. Patient feels comfortable for discharge back to [facility]. She is fatigued but will continue with PT/OT and increase oral intake. Would recommend continuing ensure 3 times a day for added protein benefit patient likes these as well. She'll continue course of oral Ceftin for the next 10 days. We will keep Vargas catheter in place, this can be evaluated at [facility] for discontinuation with voiding trials. Would also recommend increasing potassium to 20 mEq daily on discharge. Pleas see medication reconciliation for a list of current medications. Thank you for allowing us to participate in the care of this patient. Patient Condition at Discharge: Fair Plan - Discharge Summary Discharge Rx Participant: No New Discharge Prescriptions: New Tamsulosin [Flomax] 0.4 mg PO PC-SUPPER Magnesium Oxide [Mag-Ox] 400 mg PO DAILY tab Acetaminophen Tab [Tylenol] 650 mg PO Q6HR PRN tab PRN Reason: Mild Pain Or Fever > 100.5 Losartan [Cozaar] 25 mg PO DAILY #6 tab Cefuroxime Axetil [Ceftin] 500 mg PO BID 10 Days #20 tab Continue Sennosides [Senna] 8.6 mg PO DAILY PRN PRN Reason: Constipation INSULIN ASPART (NovoLOG) [NovoLOG (formulary)] See Protocol SQ ACHS Acetaminophen [Tylenol] 325 mg PO TID@0700,1300,1900 Metoprolol Tartrate [Lopressor] 50 mg PO TID@0700,1300,1900 Pantoprazole Sodium [Protonix] 40 mg PO DAILY@0700 Febuxostat [Uloric] 80 mg PO DAILY Potassium Chloride [Klor-Con 10 ER] 10 meq PO DAILY@0700 Insulin Detemir [Levemir Flextouch Pen] 15 units SQ DAILY Ferrous Sulfate [Iron (65 MG Elemental)] 325 mg PO DAILY Cyanocobalamin [Vitamin B-12] 500 mcg PO DAILY Aspirin 81 mg PO DAILY Dermaceptin 1 applic TOPICAL TID metFORMIN HCL [Glucophage] 1,000 mg PO BID@0700,1600 Povidone-Iodine [Betadine] 1 applic TOPICAL HS Menthol [Biofreeze] 1 applic TOPICAL BID Atorvastatin [Lipitor] 40 mg PO HS@1999 Prostat 30 ml PO DAILY Magnesium Hydroxide [Milk of Magnesia] 2,400 mg PO DAILY PRN PRN Reason: Constipation Discontinued amLODIPine [Norvasc] 10 mg PO HS@1999 Losartan Potassium [Cozaar] 100 mg PO DAILY Furosemide [Lasix] 20 mg PO DAILY@0700 Discharge Medication List Acetaminophen [Tylenol] 325 mg PO TID@0700,1300,1900 08/30/21 [History] Aspirin 81 mg PO DAILY 08/30/21 [History] Atorvastatin [Lipitor] 40 mg PO HS@199908/30/21 [History] Cyanocobalamin [Vitamin B-12] 500 mcg PO DAILY 08/30/21 [History] Dermaceptin 1 applic TOPICAL TID 08/30/21 [History] Febuxostat [Uloric] 80 mg PO DAILY 08/30/21 [History] Ferrous Sulfate [Iron (65 MG Elemental)] 325 mg PO DAILY 08/30/21 [History] INSULIN ASPART (NovoLOG) [NovoLOG (formulary)] See Protocol SQ ACHS 08/30/21 [History] Insulin Detemir [Levemir Flextouch Pen] 15 units SQ DAILY 08/30/21 [History] Magnesium Hydroxide [Milk of Magnesia] 2,400 mg PO DAILY PRN 08/30/21 [History] Menthol [Biofreeze] 1 applic TOPICAL BID 08/30/21 [History] Metoprolol Tartrate [Lopressor] 50 mg PO TID@0700,1300,1900 08/30/21 [History] Pantoprazole Sodium [Protonix] 40 mg PO DAILY@0700 08/30/21 [History] Potassium Chloride [Klor-Con 10 ER] 10 meq PO DAILY@0700 08/30/21 [History] Povidone-Iodine [Betadine] 1 applic TOPICAL HS 08/30/21 [History] Prostat 30 ml PO DAILY 08/30/21 [History] Sennosides [Senna] 8.6 mg PO DAILY PRN 08/30/21 [History] metFORMIN HCL [Glucophage] 1,000 mg PO BID@0700,1600 08/30/21 [History] Acetaminophen Tab [Tylenol] 650 mg PO Q6HR PRN tab 09/04/21 [Rx] Cefuroxime Axetil [Ceftin] 500 mg PO BID 10 Days #20 tab 09/04/21 [Rx] Losartan [Cozaar] 25 mg PO DAILY #6 tab 09/04/21 [Rx] Magnesium Oxide [Mag-Ox] 400 mg PO DAILY tab 09/04/21 [Rx] Tamsulosin [Flomax] 0.4 mg PO PC-SUPPER 09/04/21 [Rx] Follow up Appointment(s)/Referral(s): Ondina Alvares DO [Primary Care Provider] - 1-2 days [facility], [NON-STAFF] - As Needed Ambulatory/Diagnostic Orders: Basic Metabolic Panel [LAB.AMB] Time Frame: 2 Days, Location: None Selected Complete Blood Count w/diff [LAB.AMB] Time Frame: 2 Days, Location: None Selected Magnesium [LAB.AMB] Time Frame: 2 Days, Location: None Selected Patient Instructions/Handouts: Cefuroxime (By mouth), Losartan (By mouth), Altered Mental Status (ED) Discharge Disposition: TRANSFER TO SNF/ECF
== END 2021-09-05 13:10 | DRG 871 ==
LOC: EC 05:02 → 4SSUR 06:37 → 3SCARD 09-02 14:30
PROVIDERS: ADMIT Hospitalist; ATTEND Hospitalist
DX: A41.59 Other Gram-negative sepsis (principal); N17.0 Acute kidney failure with tubular necrosis; G93.41 Metabolic encephalopathy; G92.9 Unspecified toxic encephalopathy; E87.1 Hypo-osmolality and hyponatremia; E87.2 Acidosis; J98.11 Atelectasis; N39.0 Urinary tract infection, site not specified; R18.8 Other ascites; B96.4 Proteus (mirabilis) (morganii) as the cause of diseases classified elsewhere; B96.89 Other specified bacterial agents as the cause of diseases classified elsewhere; D69.6 Thrombocytopenia, unspecified; E11.9 Type 2 diabetes mellitus without complications; Z20.822 Contact with and (suspected) exposure to COVID-19; E83.42 Hypomagnesemia; E86.1 Hypovolemia; E87.5 Hyperkalemia; E87.6 Hypokalemia; F01.50 Vascular dementia, unspecified severity, without behavioral disturbance, psychotic disturbance, mood disturbance, and anxiety; I10 Essential (primary) hypertension; I48.91 Unspecified atrial fibrillation; I49.1 Atrial premature depolarization; M21.371 Foot drop, right foot; M21.372 Foot drop, left foot; Z74.01 Bed confinement status; T38.3X5A Adverse effect of insulin and oral hypoglycemic [antidiabetic] drugs, initial encounter; W19.XXXA Unspecified fall, initial encounter; Z79.4 Long term (current) use of insulin; Z79.82 Long term (current) use of aspirin; Z79.899 Other long term (current) drug therapy; Z86.73 Personal history of transient ischemic attack (TIA), and cerebral infarction without residual deficits; Z88.0 Allergy status to penicillin; Z99.3 Dependence on wheelchair; Z88.5 Allergy status to narcotic agent; R33.9 Retention of urine, unspecified
CPT/HCPCS: 36415; 70450; 71045; 76770; 80048; 80053; 81001; 82570; 82947; 83036; 83735; 83930; 83935; 84132; 84133; 84300; 84484; 85025; 87040; 87077; 87086; 87186; 87635; 93005; 93306; 94760; 99285

== ENCOUNTER 2021-10-07 15:51 | Inpatient (IN) | payer MEDICARE, BC ==
--- NOTE | 2021-10-07 16:54 | ED ---
Recheck HPI - General Source: EMS Mode of arrival: EMS Limitations: altered mental status, physical limitation <Kaitlyn Beavers - Last Filed: 10/07/21 20:28> <Stephanie Perera - Last Filed: 10/16/21 00:14> - General Chief Complaint: Recheck/Abnormal Lab/Rx Stated Complaint: abn labs Time Seen by Provider: 10/07/21 16:25 - History of Present Illness Initial Comments: Patient is a 71-year-old female with a past medical history significant for CVA/TIA currently bedbound, type 2 diabetes, hypertension, and atrial fibr illation who presents to the emergency department via ambulance from [facility] due to critically low hemoglobin. Patient is minimally verbal due to stroke and her friend Nenita speaks on her behalf at bedside. EMS reports that patient had routine blood work drawn on 10/06/21 which came back today with critically low hemoglobin at 5.91. It is unknown as patient is on blood thinners although the report from [facility] does not include a blood thinner in her medications. [facility] report states that reason for transfer to [facility] is low hemoglobin, UTI with VRE, and pending stool to rule out C. diff. Patient's friend reports that patient was prescribed doxycycline for UTI for 10 days starting 09/27/21 although she is unsure where patient was treated. She states that the patient has not been eating and drinking. Patient was last seen here at [facility] on 08/30/21-09/05/21 for altered mental status and was found to have acute renal failure with electrolyte abnormalities, urinary tract infection, bacteremia, and a small lucunar infarct on CT. [facility]en almaguer, patient reports intermittent burning with urination. She has no other concerns at this time including fever, chills, shortness of breath, dizziness, lightheadedness, chest pain, palpitations, abdominal pain, nausea, vomiting, diarrhea. (Kaitlyn Beavers) - Related Data Home Medications Medication Instructions Recorded Confirmed Aspirin 81 mg PO HS 08/30/21 10/15/21 Atorvastatin [Lipitor] 40 mg PO HS@2000 08/30/21 10/15/21 Cyanocobalamin [Vitamin B-12] 500 mcg PO HS 08/30/21 10/15/21 Dermaceptin 1 applic TOPICAL TID 08/30/21 10/15/21 Febuxostat [Uloric] 80 mg PO DAILY 08/30/21 10/15/21 Ferrous Sulfate [Iron (65 MG 325 mg PO HS 08/30/21 10/15/21 Elemental)] INSULIN ASPART (NovoLOG) [NovoLOG See Protocol SQ QID@07,11,16,20 08/30/21 10/15/21 (formulary)] Magnesium Hydroxide [Milk of 2,400 mg PO DAILY PRN 08/30/21 10/15/21 Magnesia] Menthol [Biofreeze] 1 applic TOPICAL BID 08/30/21 10/15/21 Metoprolol Tartrate [Lopressor] 50 mg PO TID@0700,1300,1900 08/30/21 10/15/21 Povidone-Iodine [Betadine] 1 applic TOPICAL HS 08/30/21 10/15/21 Prostat 30 ml PO DAILY 08/30/21 10/15/21 Sennosides [Senna] 8.6 mg PO DAILY PRN 08/30/21 10/15/21 Doxycycline Monohydrate 100 mg PO BID 10/07/21 10/15/21 Fluconazole [Diflucan] 100 mg PO ONCE 10/07/21 10/15/21 Health Shake 1 can PO BID 10/07/21 10/15/21 Magnesium Oxide [Mag-Ox] 400 mg PO HS 10/07/21 10/15/21 Omeprazole 20 mg PO DAILY 10/07/21 10/15/21 Potassium Chloride [Potassium 10 meq PO DAILY 10/07/21 10/15/21 Chloride ER] Tamsulosin [Flomax] 0.4 mg PO HS 10/07/21 10/15/21 Previous Rx's Medication Instructions Recorded Acetaminophen Tab [Tylenol] 650 mg PO Q6HR PRN tab 09/04/21 Losartan [Cozaar] 25 mg PO DAILY #6 tab 09/04/21 Allergies Allergy/AdvReac Type Severity Reaction Status Date / Time codeine Allergy Unknown Verified 10/15/21 20:43 morphine Allergy Unknown Verified 10/15/21 20:43 Penicillins Allergy Unknown Verified 10/15/21 20:43 Review of Systems ROS Other: All systems not noted in ROS Statement are negative. <Kaitlyn Beavers - Last Filed: 10/07/21 20:28> ROS Other: All systems not noted in ROS Statement are negative. <Stephanie Perera - Last Filed: 10/16/21 00:14> ROS Statement: Those systems with pertinent positive or pertinent negative responses have been documented in the HPI. Past Medical History Past Medical History: Atrial Fibrillation, CVA/TIA, Diabetes Mellitus, Hypertension Additional Past Medical History / Comment(s): CVA with slight R sided weakness/past aphasia/dysphagia but staff at [facility] states this is not a current problem, IDDM type II, neuropathy bilateral feet, chronic cervical pain/DDD, back pain, UTIs, muscle weakness, past metabolic encephalopathy and acute kidney failure. History of Any Multi-Drug Resistant Organisms: None Reported Additional Past Surgical History / Comment(s): Gallbladder drain per pt. Past Anesthesia/Blood Transfusion Reactions: No Reported Reaction Past Psychological History: No Psychological Hx Reported Smoking Status: Never smoker Past Alcohol Use History: None Reported Past Drug Use History: None Reported - Past Family History Mother Family Medical History: No Reported History Additional Family Medical History / Comment(s): Mother was healthy Father Family Medical History: Cancer Additional Family Medical History / Comment(s): Prostate cancer. <Kaitlyn Beavers - Last Filed: 10/07/21 20:28> General Exam Limitations: altered mental status, physical limitation General appearance: alert, in no apparent distress Eye exam: Present: normal appearance, PERRL Neck exam: Present: normal inspection Respiratory exam: Present: normal lung sounds bilaterally. Absent: respiratory distress, wheezes, rales, rhonchi, stridor Cardiovascular Exam: Present: regular rate, normal rhythm, normal heart sounds. Absent: systolic murmur, diastolic murmur, rubs, gallop, clicks GI/Abdominal exam: Present: soft. Absent: tenderness, guarding, rebound, rigid (Healing ecchymosis of the lower abdomen bilaterally) Rectal exam: Present: normal rectal tone, heme (+) stool Back exam: Absent: normal inspection (Stage I pressure ulcer in the sacral area, wound is covered in bandage.) Neurological exam: Present: alert, CN II-XII intact. Absent: oriented X3 Psychiatric exam: Present: normal affect, normal mood Skin exam: Present: warm, dry, intact, pallor, other (Ecchymosis of the lower abdomen). Absent: normal color (Pallor), rash <Kaitlyn Beavers - Last Filed: 10/07/21 20:28> Course Vital Signs 10/07/21 10/07/21 10/07/21 15:58 16:02 20:13 Temperature 98.1 F Pulse Rate 83 79 Pulse Rate [ 81 Feather Mixer ] Respiratory 16 16 Rate Blood Pressure 124/61 124/61 O2 Sat by Pulse 97 96 Oximetry 10/07/21 10/07/21 10/07/21 20:14 21:00 22:00 Temperature 97.5 F L Pulse Rate 79 76 85 Pulse Rate [ Feather Mixer ] Respiratory 18 15 21 Rate Blood Pressure 121/61 121/61 100/50 O2 Sat by Pulse 99 97 98 Oximetry 10/07/21 23:00 Temperature 98.9 F Pulse Rate 86 Pulse Rate [ Feather Mixer ] Respiratory 17 Rate Blood Pressure 125/52 O2 Sat by Pulse 96 Oximetry Medical Decision Making - Lab Data Result diagrams: 10/07/21 16:31 10/07/21 16:31 <RuthannKaitlyn - Last Filed: 10/07/21 20:28> - Lab Data Result diagrams: 10/15/21 04:20 10/15/21 04:20 <Stephanie Perera - Last Filed: 10/16/21 00:14> - Medical Decision Making This 71-year-old female presents from [facility] due to low hemoglobin at 5.91 yesterday. Thorough history and examination were performed. Accurate history was difficult to obtain. Patient's friend reports that patient's mental status is improved since a couple days ago. Patient is alert and oriented 2 which seems similar to her baseline. Patient is afebrile. She is hemodynamically stable with pulse 83. Pallor is noted. Active bleeding was not visualized during rectal examination. Hemoccult blood test is positive. C. diff is not detected. Laboratory values reveal acute kidney injury with creatinine at 1.55. Hemoglobin is near her baseline at 8.4. Urinalysis ordered. Patient given small fluid bolus for acute kidney injury. Patient's friend verbalizes that they are in the process of trying to switch extended care facilities from [facility] to [facility] due to dissatisfaction with patient care. Case discussed with Dr. Jennings. Patient will be admitted to his service for further evaluation and management I will consult case management for assistance with extended care facility transfer. Maintenance fluids ordered. Case discussed with patient and patient's friend. They verbalize understanding and are agreeable to admision. Dr. Perera is my attending. (Kaitlyn Beavers) I was available for consultation in the emergency department. The history and physical exam were done by the midlevel provider. I was consulted for this patients care. I reviewed the case with the midlevel provider and based on their presentation of the patient, I agree with the assessment, medical decision making and plan of care as documented. Chart was dictated using [employer] dictation software. Attempts were made to correct any dictation errors however some typographical errors may persist. (Stephanie Perera) - Lab Data Lab Results 10/07/21 10/07/21 10/07/21 Range/Units 16:05 16:10 16:31 WBC 10.2 (3.8-10.6) k/uL RBC 3.02 L (3.80-5.40) m/uL Hgb 8.4 L (11.4-16.0) gm/dL Hct 28.5 L (34.0-46.0) % MCV 94.3 (80.0-100.0) fL MCH 27.7 (25.0-35.0) pg MCHC 29.4 L (31.0-37.0) g/dL RDW 17.7 H (11.5-15.5) % Plt Count 320 D (150-450) k/uL MPV 7.7 Neutrophils % 78 % Lymphocytes % 15 % Monocytes % 4 % Eosinophils % 1 % Basophils % 0 % Neutrophils # 8.0 H (1.3-7.7) k/uL Lymphocytes # 1.6 (1.0-4.8) k/uL Monocytes # 0.4 (0-1.0) k/uL Eosinophils # 0.1 (0-0.7) k/uL Basophils # 0.0 (0-0.2) k/uL Hypochromasia Marked Anisocytosis Slight PT (9.0-12.0) sec INR (<1.2) APTT (22.0-30.0) sec Sodium (137-145) mmol/L Potassium (3.5-5.1) mmol/L Chloride (98-107) mmol/L Carbon Dioxide (22-30) mmol/L Anion Gap mmol/L BUN (7-17) mg/dL Creatinine (0.52-1.04) mg/dL Est GFR (CKD-EPI)AfAm (>60 ml/min/1.73 sqM) Est GFR (CKD-EPI)NonAf (>60 ml/min/1.73 sqM) Glucose (74-99) mg/dL Calcium (8.4-10.2) mg/dL Total Bilirubin (0.2-1.3) mg/dL AST (14-36) U/L ALT (4-34) U/L Alkaline Phosphatase (38-126) U/L Total Protein (6.3-8.2) g/dL Albumin (3.5-5.0) g/dL Urine Color Urine Appearance (Clear) Urine pH (5.0-8.0) Ur Specific [place] (1.001-1.035) Urine Protein (Negative) Urine Glucose (UA) (Negative) Urine Ketones (Negative) Urine Blood (Negative) Urine Nitrite (Negative) Urine Bilirubin (Negative) Urine Urobilinogen (<2.0) mg/dL Ur Leukocyte Esterase (Negative) Urine RBC (0-5) /hpf Urine WBC (0-5) /hpf Urine WBC Clumps (None) /hpf Urine Bacteria (None) /hpf Stool Occult Blood (Negative) C. difficile (EIA) Intrp (Negative) Blood Type O Positive Blood Type Confirm O Positive Blood Type Recheck No Previous Record Bld Type Recheck Status CABO Indicated Antibody Screen NEGATIVE Spec Expiration Date 10/10/2021232610/07/21 10/07/21 10/07/21 Range/Units 16:31 16:31 16:46 WBC (3.8-10.6) k/uL RBC (3.80-5.40) m/uL Hgb (11.4-16.0) gm/dL Hct (34.0-46.0) % MCV (80.0-100.0) fL MCH (25.0-35.0) pg MCHC (31.0-37.0) g/dL RDW (11.5-15.5) % Plt Count (150-450) k/uL MPV Neutrophils % % Lymphocytes % % Monocytes % % Eosinophils % % Basophils % % Neutrophils # (1.3-7.7) k/uL Lymphocytes # (1.0-4.8) k/uL Monocytes # (0-1.0) k/uL Eosinophils # (0-0.7) k/uL Basophils # (0-0.2) k/uL Hypochromasia Anisocytosis PT 10.2 (9.0-12.0) sec INR 0.9 (<1.2) APTT 21.3 L (22.0-30.0) sec Sodium 136 L (137-145) mmol/L Potassium 5.3 H (3.5-5.1) mmol/L Chloride 112 H (98-107) mmol/L Carbon Dioxide 18 L (22-30) mmol/L Anion Gap 6 mmol/L BUN 75 H (7-17) mg/dL Creatinine 1.55 H (0.52-1.04) mg/dL Est GFR (CKD-EPI)AfAm 38 (>60 ml/min/1.73 sqM) Est GFR (CKD-EPI)NonAf 33 (>60 ml/min/1.73 sqM) Glucose 132 H (74-99) mg/dL Calcium 8.6 (8.4-10.2) mg/dL Total Bilirubin 0.3 (0.2-1.3) mg/dL AST 17 (14-36) U/L ALT 10 (4-34) U/L Alkaline Phosphatase 142 H (38-126) U/L Total Protein 5.4 L (6.3-8.2) g/dL Albumin 2.0 L (3.5-5.0) g/dL Urine Color Urine Appearance (Clear) Urine pH (5.0-8.0) Ur Specific [place] (1.001-1.035) Urine Protein (Negative) Urine Glucose (UA) (Negative) Urine Ketones (Negative) Urine Blood (Negative) Urine Nitrite (Negative) Urine Bilirubin (Negative) Urine Urobilinogen (<2.0) mg/dL Ur Leukocyte Esterase (Negative) Urine RBC (0-5) /hpf Urine WBC (0-5) /hpf Urine WBC Clumps (None) /hpf Urine Bacteria (None) /hpf Stool Occult Blood Positive H (Negative) C. difficile (EIA) Intrp (Negative) Blood Type Blood Type Confirm Blood Type Recheck Bld Type Recheck Status Antibody Screen Spec Expiration Date 10/07/21 10/07/21 Range/Units 16:46 20:33 WBC (3.8-10.6) k/uL RBC (3.80-5.40) m/uL Hgb (11.4-16.0) gm/dL Hct (34.0-46.0) % MCV (80.0-100.0) fL MCH (25.0-35.0) pg MCHC (31.0-37.0) g/dL RDW (11.5-15.5) % Plt Count (150-450) k/uL MPV Neutrophils % % Lymphocytes % % Monocytes % % Eosinophils % % Basophils % % Neutrophils # (1.3-7.7) k/uL Lymphocytes # (1.0-4.8) k/uL Monocytes # (0-1.0) k/uL Eosinophils # (0-0.7) k/uL Basophils # (0-0.2) k/uL Hypochromasia Anisocytosis PT (9.0-12.0) sec INR (<1.2) APTT (22.0-30.0) sec Sodium (137-145) mmol/L Potassium (3.5-5.1) mmol/L Chloride (98-107) mmol/L Carbon Dioxide (22-30) mmol/L Anion Gap mmol/L BUN (7-17) mg/dL Creatinine (0.52-1.04) mg/dL Est GFR (CKD-EPI)AfAm (>60 ml/min/1.73 sqM) Est GFR (CKD-EPI)NonAf (>60 ml/min/1.73 sqM) Glucose (74-99) mg/dL Calcium (8.4-10.2) mg/dL Total Bilirubin (0.2-1.3) mg/dL AST (14-36) U/L ALT (4-34) U/L Alkaline Phosphatase (38-126) U/L Total Protein (6.3-8.2) g/dL Albumin (3.5-5.0) g/dL Urine Color Yellow Urine Appearance Turbid H (Clear) Urine pH 6.5 (5.0-8.0) Ur Specific [place] 1.025 (1.001-1.035) Urine Protein 2+ H (Negative) Urine Glucose (UA) Negative (Negative) Urine Ketones Negative (Negative) Urine Blood Moderate H (Negative) Urine Nitrite Negative (Negative) Urine Bilirubin Negative (Negative) Urine Urobilinogen <2.0 (<2.0) mg/dL Ur Leukocyte Esterase Large H (Negative) Urine RBC 77 H (0-5) /hpf Urine WBC >182 H (0-5) /hpf Urine WBC Clumps Many H (None) /hpf Urine Bacteria Many H (None) /hpf Stool Occult Blood (Negative) C. difficile (EIA) Intrp Negative (Negative) Blood Type Blood Type Confirm Blood Type Recheck Bld Type Recheck Status Antibody Screen Spec Expiration Date Disposition Decision Time: 20:33 <Kaitlyn Beavers - Last Filed: 10/07/21 20:28> <Stephanie Perera - Last Filed: 10/16/21 00:14> Clinical Impression: Failure to thrive, Acute kidney injury, Dysuria, Pressure ulcer Disposition: ADMITTED IP TO THIS HOSP Condition: Fair
[2021-10-07 18:18] LABS: Anisocytosis Slight; Basophils % (A) 0 %; Eosinophils # (A) 0.1 k/uL (0-0.7); Eosinophils % (A) 1 %; HCT 28.5 % (34.0-46.0); HGB 8.4 gm/dL (11.4-16.0); Hypochromasia Marked; Lymphocytes # (A) 1.6 k/uL (1.0-4.8); Lymphocytes % (A) 15 %; MCH 27.7 pg (25.0-35.0); MCHC 29.4 g/dL (31.0-37.0); MCV 94.3 fL (80.0-100.0); Mean Platelet Volume 7.7; Monocytes # (A) 0.4 k/uL (0-1.0); Monocytes % (A) 4 %; Neutrophils % (A) 78 %; RBC 3.02 m/uL (3.80-5.40); RDW 17.7 % (11.5-15.5); WBC 10.2 k/uL (3.8-10.6)
[2021-10-07 18:24] LABS: Calcium 8.6 mg/dL (8.4-10.2); Potassium 5.3 mmol/L (3.5-5.1); Total Bilirubin 0.3 mg/dL (0.2-1.3); Total Protein 5.4 g/dL (6.3-8.2)
[2021-10-07 18:38] LABS: INR 0.9 (<1.2); Prothrombin Time 10.2 sec (9.0-12.0)
[2021-10-07 18:47] LABS: Platelet Count 320 k/uL (150-450)
[2021-10-07 18:48] LABS: Partial Thromboplastin Time 21.3 sec (22.0-30.0)
[2021-10-07] MEDS ORDERED: SODIUM CHLORIDE 0.9% 500 ML 500 ML IV STA (18:50)
[2021-10-07 21:00] LABS: Appearance,Urine Turbid (Clear); Bacteria,Urine Many /hpf; Bilirubin,Urine Negative (Negative); Blood,Urine Moderate (Negative); Color,Urine Yellow; Glucose,Urine (UA) Negative (Negative); Ketones,Urine Negative (Negative); Leukocyte Esterase,Urine Large (Negative); Nitrite,Urine Negative (Negative); PH, Urine 6.5 (5.0-8.0); Protein,Urine 2+ (Negative); RBC,Urine 77 /hpf (0-5); Urobilinogen,Urine <2.0 mg/dL (<2.0); WBC,Urine >182 /hpf (0-5)
[2021-10-07 21:02] LABS: Specific Gravity,Urine 1.025 (1.001-1.035)
[2021-10-07] MEDS ORDERED: cefTRIAXone IN SWFI 1,000 MG/10 ML SYRINGE IVP STA (22:51)
[2021-10-07] MEDS: SODIUM CHLORIDE 0.9% 1,000 ML IV SCH (23:12)
--- NOTE | 2021-10-08 00:31 | P.HPIM ---
History of Present Illness H&P Date: 10/07/21 The patient is a 71-year-old female with a PMH of recent CVA 3 months ago with subsequent admission to [facility] for CAMPBELL, type II DM, hypertension, and A. fib (not on anticoagulation) was sent into the emergency room from [facility] due to dehydration and low hemoglobin. The history was supplemented by the ED provider as well as the patient's friends at the bedside. Reportedly, the patient was hi ghly functional prior to her CVA 3 months ago, and since then has been essentially bedbound and has developed multiple decubitus ulcers. She reportedly underwent blood work on 10/06/21 which had resulted with a hemoglobin of 5.9. The patient's medication list did not reveal any anticoagulants. The patient also states that she has been experiencing diarrhea for the past few days and as a result feels really weak and tired and has had minimal oral intake. She reports some burning with urination and the friend at the bedside reports that she has been prescribed doxycycline for significant UTI since 09/27. The patient also reported bilateral lower extremity edema ongoing since the diagnosis of her stroke. Of note, the patient was previously admitted to [facility] on 08/30/2021 for UTI, acute kidney injury, and lacunar infarct. There is also reports of small amounts of blood in her stool. The patient currently denied abdominal pain, nausea, vomiting, fever, chills, cough. Laboratory evaluation in the emergency room revealed a hemoglobin of 8.4 (previously 8.8 on 09/04), with sodium 136, potassium 5.3, chloride 112, CO2 18, BUN 75, creatinine 1.5, albumin 2.0, and UA grossly abnormal with C. diff negative and stool occult blood positive. Review of systems: Pertinent positives and negatives as discussed in HPI, a complete review of systems was performed and all other systems are negative. Physical examination: General: Chronically ill-appearing female, no distress, appears older than stated age, normal weight Derm: Sacral stage 1 ulcer 3-4 cm noted with surrounding erythema, warm, dry Head: atraumatic, normocephalic, symmetric Eyes: EOMI, no lid lag, anicteric sclera, pupils equal round reactive to light ENT: Nose and ears atraumatic, no thrush, no pharyngeal erythema Neck: No thyromegaly, no cervical lymphadenopathy, trachea midline, supple Mouth: no lip lesion, mucus membranes very dry Cardiovascular: S1S2 reg, no murmur, positive posterior tibial pulse bilateral, 2+ bilateral lower extremity pitting edema to thighs, capillary refill less than 2 seconds Lungs: CTA bilateral, no rhonchi, no rales , no accessory muscle use Abdominal: soft, nontender to palpation, no guarding, no appreciable organomegaly, normal bowel sounds Ext: no gross muscle atrophy, muscle strength 3 out of 5 in all 4 extremities grossly, no contractures, Neuro: CN II-XI grossly intact, light touch intact all 4 extremities, finger to nose within normal limits, Psych: Alert, oriented, appropriate affect Assessment/plan Acute kidney injury, likely secondary to severe dehydration -Continue with IV fluids -Monitor BMP UTI -Previous cultures from 08/30 revealed Proteus sensitive to ceftriaxone -Continue ceftriaxone for now and follow-up cultures Hyperkalemia -Suspected secondary to acute kidney injury -Consider discontinuing home potassium regimen Severe protein calorie malnutrition -Dietitian consult Lower extremity edema, suspected secondary to severe protein calorie malnutrition and hypoalbuminemia -Obtain prealbumin levels -Obtain echocardiogram Chronic conditions: Type II DM, hypertension -Insulin sliding scale blood glucose monitoring -Continue with home medications DVT prophylaxis -Heparin subq The patient is admitted with an anticipated greater than 2 midnight stay for evaluation of AGUSTÍN CODE STATUS: Full Code Discussed with: Patient Anticipated discharge date: 10/[address]: [facility] Past Medical History Past Medical History: Atrial Fibrillation, CVA/TIA, Diabetes Mellitus, Hypertension Additional Past Medical History / Comment(s): CVA with slight R sided weakness /past aphasia/dysphagia but staff at [facility] states this is not a current problem, IDDM type II, neuropathy bilateral feet, chronic cervical pain/DDD, back pain, UTIs, muscle weakness, past metabolic encephalopathy and acute kidney failure. History of Any Multi-Drug Resistant Organisms: None Reported Additional Past Surgical History / Comment(s): Gallbladder drain per pt. Past Anesthesia/Blood Transfusion Reactions: No Reported Reaction Past Psychological History: No Psychological Hx Reported Smoking Status: Never smoker Past Alcohol Use History: None Reported Past Drug Use History: None Reported - Past Family History Mother Family Medical History: No Reported History Additional Family Medical History / Comment(s): Mother was healthy Father Family Medical History: Cancer Additional Family Medical History / Comment(s): Prostate cancer. Medications and Allergies Home Medications Medication Instructions Recorded Confirmed Type Aspirin 81 mg PO HS 08/30/21 10/07/21 History Atorvastatin [Lipitor] 40 mg PO HS@199908/30/21 10/07/21 History Cyanocobalamin [Vitamin B-12] 500 mcg PO HS 08/30/21 10/07/21 History Dermaceptin 1 applic TOPICAL TID 08/30/21 10/07/21 History Febuxostat [Uloric] 80 mg PO DAILY 08/30/21 10/07/21 History Ferrous Sulfate [Iron (65 MG 325 mg PO HS 08/30/21 10/07/21 History Elemental)] INSULIN ASPART (NovoLOG) [NovoLOG See Protocol SQ QID@07,11,16,20 08/30/21 10/07/21 History (formulary)] Magnesium Hydroxide [Milk of 2,400 mg PO DAILY PRN 08/30/21 10/07/21 History Magnesia] Menthol [Biofreeze] 1 applic TOPICAL BID 08/30/21 10/07/21 History Metoprolol Tartrate [Lopressor] 50 mg PO TID@0700,1300,1900 08/30/21 10/07/21 History Povidone-Iodine [Betadine] 1 applic TOPICAL HS 08/30/21 10/07/21 History Prostat 30 ml PO DAILY 08/30/21 10/07/21 History Sennosides [Senna] 8.6 mg PO DAILY PRN 08/30/21 10/07/21 History Acetaminophen Tab [Tylenol] 650 mg PO Q6HR PRN tab 09/04/21 10/07/21 Rx Losartan [Cozaar] 25 mg PO DAILY #6 tab 09/04/21 10/07/21 Rx Doxycycline Monohydrate 100 mg PO BID 10/07/21 10/07/21 History Fluconazole [Diflucan] 100 mg PO ONCE 10/07/21 10/07/21 History Health Shake 1 can PO BID 10/07/21 10/07/21 History Magnesium Oxide [Mag-Ox] 400 mg PO HS 10/07/21 10/07/21 History Omeprazole 20 mg PO DAILY 10/07/21 10/07/21 History Potassium Chloride [Potassium 10 meq PO DAILY 10/07/21 10/07/21 History Chloride ER] Tamsulosin [Flomax] 0.4 mg PO HS 10/07/21 10/07/21 History Allergies Allergy/AdvReac Type Severity Reaction Status Date / Time codeine Allergy Unknown Verified 10/07/21 21:11 morphine Allergy Unknown Verified 10/07/21 21:11 Penicillins Allergy Unknown Verified 10/07/21 21:11 Physical Exam Vitals: Vital Signs Temp Pulse Pulse Resp BP Pulse Ox 10/07/21 20:14 97.5 F L 79 18 121/61 99 10/07/21 16:02 81 10/07/21 15:58 98.1 F 83 16 124/61 97 Intake and Output 10/07/21 10/07/21 10/08/21 14:59 22:59 07:59 Other: Weight 90.718 kg Results CBC & Chem 7: 10/07/21 16:31 10/07/21 16:31 Labs: Abnormal Lab Results - Last 24 Hours (Table) 10/07/21 10/07/21 10/07/21 Range/Units 16:31 16:31 16:31 RBC 3.02 L (3.80-5.40) m/uL Hgb 8.4 L (11.4-16.0) gm/dL Hct 28.5 L (34.0-46.0) % MCHC 29.4 L (31.0-37.0) g/dL RDW 17.7 H (11.5-15.5) % Neutrophils # 8.0 H (1.3-7.7) k/uL APTT 21.3 L (22.0-30.0) sec Sodium 136 L (137-145) mmol/L Potassium 5.3 H (3.5-5.1) mmol/L Chloride 112 H (98-107) mmol/L Carbon Dioxide 18 L (22-30) mmol/L BUN 75 H (7-17) mg/dL Creatinine 1.55 H (0.52-1.04) mg/dL Glucose 132 H (74-99) mg/dL Alkaline Phosphatase 142 H (38-126) U/L Total Protein 5.4 L (6.3-8.2) g/dL Albumin 2.0 L (3.5-5.0) g/dL Urine Appearance (Clear) Urine Protein (Negative) Urine Blood (Negative) Ur Leukocyte Esterase (Negative) Urine RBC (0-5) /hpf Urine WBC (0-5) /hpf Urine WBC Clumps (None) /hpf Urine Bacteria (None) /hpf Stool Occult Blood (Negative) 10/07/21 10/07/21 Range/Units 16:46 20:33 RBC (3.80-5.40) m/uL Hgb (11.4-16.0) gm/dL Hct (34.0-46.0) % MCHC (31.0-37.0) g/dL RDW (11.5-15.5) % Neutrophils # (1.3-7.7) k/uL APTT (22.0-30.0) sec Sodium (137-145) mmol/L Potassium (3.5-5.1) mmol/L Chloride (98-107) mmol/L Carbon Dioxide (22-30) mmol/L BUN (7-17) mg/dL Creatinine (0.52-1.04) mg/dL Glucose (74-99) mg/dL Alkaline Phosphatase (38-126) U/L Total Protein (6.3-8.2) g/dL Albumin (3.5-5.0) g/dL Urine Appearance Turbid H (Clear) Urine Protein 2+ H (Negative) Urine Blood Moderate H (Negative) Ur Leukocyte Esterase Large H (Negative) Urine RBC 77 H (0-5) /hpf Urine WBC >182 H (0-5) /hpf Urine WBC Clumps Many H (None) /hpf Urine Bacteria Many H (None) /hpf Stool Occult Blood Positive H (Negative)
[2021-10-08] MEDS: SODIUM CHLORIDE 0.9% 1,000 ML IV SCH ×2 (05:13→08:55)
[2021-10-08 08:32] LABS: Glucose,Whole Blood 85 mg/dL (75-99)
[2021-10-08] MEDS: INSULIN ASPART (NovoLOG) 100 UNIT/ML VIAL SQ SCH ×4 (08:40→21:30)
[2021-10-08] MEDS: HEPARIN SODIUM,PORCINE/PF 5,000 UNIT/0.5 ML SYRINGE SQ SCH ×2 (08:55→16:50)
[2021-10-08] MEDS: METOPROLOL TARTRATE 50 MG TAB PO SCH ×3 (08:55→21:30)
--- NOTE | 2021-10-08 12:15 | P.PN ---
Subjective Progress Note Date: 10/08/21 Principal diagnosis: dehydration She is feeling okay today, she states that she was not eating and drinking at the [facility] due to ''not feeling like it'' and having no appetite. No nausea or vomiting. Denies fevers or chills. Denied pain. Objective - Vital Signs Vital signs: Vital Signs Temp 98.7 F 10/08/21 08:00 Pulse 83 10/08/21 08:00 Resp 18 10/08/21 08:00 BP 146/70 10/08/21 08:00 Pulse Ox 96 10/08/21 08:00 Intake & Output 10/07/21 10/08/21 10/08/21 17:59 06:59 18:59 Intake Total Balance Weight Intake: Intake, IV Titration Amount Sodium Chloride 0.9% 1, 000 ml @ 130 mls/hr IV . Q7H42M [facility] Rx#:[id number] Other: Voiding Method Diaper Incontinent # Voids - Exam General: Chronically ill-appearing female, no distress, appears older than stated age, normal weight Derm: Sacral stage 1 ulcer 3-4 cm noted with surrounding erythema, warm, dry Head: atraumatic, normocephalic, symmetric Eyes: EOMI, no lid lag, anicteric sclera, pupils equal round reactive to light ENT: Nose and ears atraumatic, no thrush, no pharyngeal erythema Neck: No thyromegaly, no cervical lymphadenopathy, trachea midline, supple Mouth: no lip lesion, mucus membranes very dry Cardiovascular: S1S2 reg, no murmur, positive posterior tibial pulse bilateral, 2+ bilateral lower extremity pitting edema to thighs, capillary refill less than 2 seconds Lungs: CTA bilateral, no rhonchi, no rales , no accessory muscle use Abdominal: soft, nontender to palpation, no guarding, no appreciable organomegaly, normal bowel sounds Ext: no gross muscle atrophy, no contractures, Neuro: Left side is paralyzed Psych: Alert, oriented, appropriate affect - Labs CBC & Chem 7: 10/07/21 16:31 10/07/21 16:31 Labs: Abnormal Lab Results - Last 24 Hours (Table) 10/07/21 10/07/21 10/07/21 Range/Units 16:31 16:31 16:31 RBC 3.02 L (3.80-5.40) m/uL Hgb 8.4 L (11.4-16.0) gm/dL Hct 28.5 L (34.0-46.0) % MCHC 29.4 L (31.0-37.0) g/dL RDW 17.7 H (11.5-15.5) % Neutrophils # 8.0 H (1.3-7.7) k/uL APTT 21.3 L (22.0-30.0) sec Sodium 136 L (137-145) mmol/L Potassium 5.3 H (3.5-5.1) mmol/L Chloride 112 H (98-107) mmol/L Carbon Dioxide 18 L (22-30) mmol/L BUN 75 H (7-17) mg/dL Creatinine 1.55 H (0.52-1.04) mg/dL Glucose 132 H (74-99) mg/dL Hemoglobin A1c (0.0-6.0) % Alkaline Phosphatase 142 H (38-126) U/L Total Protein 5.4 L (6.3-8.2) g/dL Albumin 2.0 L (3.5-5.0) g/dL Prealbumin (18.0-42.0) mg/dL Urine Appearance (Clear) Urine Protein (Negative) Urine Blood (Negative) Ur Leukocyte Esterase (Negative) Urine RBC (0-5) /hpf Urine WBC (0-5) /hpf Urine WBC Clumps (None) /hpf Urine Bacteria (None) /hpf Stool Occult Blood (Negative) 10/07/21 10/07/21 10/08/21 Range/Units 16:46 20:33 06:19 RBC (3.80-5.40) m/uL Hgb (11.4-16.0) gm/dL Hct (34.0-46.0) % MCHC (31.0-37.0) g/dL RDW (11.5-15.5) % Neutrophils # (1.3-7.7) k/uL APTT (22.0-30.0) sec Sodium (137-145) mmol/L Potassium (3.5-5.1) mmol/L Chloride (98-107) mmol/L Carbon Dioxide (22-30) mmol/L BUN (7-17) mg/dL Creatinine (0.52-1.04) mg/dL Glucose (74-99) mg/dL Hemoglobin A1c 6.1 H (0.0-6.0) % Alkaline Phosphatase (38-126) U/L Total Protein (6.3-8.2) g/dL Albumin (3.5-5.0) g/dL Prealbumin (18.0-42.0) mg/dL Urine Appearance Turbid H (Clear) Urine Protein 2+ H (Negative) Urine Blood Moderate H (Negative) Ur Leukocyte Esterase Large H (Negative) Urine RBC 77 H (0-5) /hpf Urine WBC >182 H (0-5) /hpf Urine WBC Clumps Many H (None) /hpf Urine Bacteria Many H (None) /hpf Stool Occult Blood Positive H (Negative) 10/08/21 Range/Units 06:19 RBC (3.80-5.40) m/uL Hgb (11.4-16.0) gm/dL Hct (34.0-46.0) % MCHC (31.0-37.0) g/dL RDW (11.5-15.5) % Neutrophils # (1.3-7.7) k/uL APTT (22.0-30.0) sec Sodium (137-145) mmol/L Potassium (3.5-5.1) mmol/L Chloride (98-107) mmol/L Carbon Dioxide (22-30) mmol/L BUN (7-17) mg/dL Creatinine (0.52-1.04) mg/dL Glucose (74-99) mg/dL Hemoglobin A1c (0.0-6.0) % Alkaline Phosphatase (38-126) U/L Total Protein (6.3-8.2) g/dL Albumin (3.5-5.0) g/dL Prealbumin 9.9 L (18.0-42.0) mg/dL Urine Appearance (Clear) Urine Protein (Negative) Urine Blood (Negative) Ur Leukocyte Esterase (Negative) Urine RBC (0-5) /hpf Urine WBC (0-5) /hpf Urine WBC Clumps (None) /hpf Urine Bacteria (None) /hpf Stool Occult Blood (Negative) Microbiology - Last 24 Hours (Table) 10/07/21 20:33 Urine Culture - Preliminary Urine,Catheterized Assessment and Plan Plan: Acute kidney injury, likely secondary to severe dehydration -Continue with IV fluids -Monitor BMP -Patient encouraged to eat and drink UTI -Previous cultures from 08/30 revealed Proteus sensitive to ceftriaxone -Continue ceftriaxone for now and follow-up cultures Hyperkalemia -Suspected secondary to acute kidney injury -Discontinue home potassium regimen Severe protein calorie malnutrition with prealbumin 10 -Dietitian consult Lower extremity edema, suspected secondary to severe protein calorie malnutrition and hypoalbuminemia -Echocardiogram from last admission reviewed, normal EF Chronic conditions: Type II DM, hypertension -Insulin sliding scale blood glucose monitoring -Continue with home medications DVT prophylaxis -Heparin subq CODE STATUS: Full Code Discussed with: Patient Anticipated discharge date: 10/[address]: SNF
[2021-10-08 12:32] LABS: Glucose,Whole Blood 87 mg/dL (75-99)
[2021-10-08 16:59] LABS: Glucose,Whole Blood 82 mg/dL (75-99)
[2021-10-08 20:26] LABS: Glucose,Whole Blood 100 mg/dL (75-99)
[2021-10-08] MEDS: ATORVASTATIN 40 MG TAB PO SCH (21:30)
[2021-10-08] MEDS: ASPIRIN 81 MG PO SCH (21:30)
[2021-10-09] MEDS: HEPARIN SODIUM,PORCINE/PF 5,000 UNIT/0.5 ML SYRINGE SQ SCH ×4 (00:38→23:14)
[2021-10-09] MEDS: SODIUM CHLORIDE 0.9% 1,000 ML IV SCH ×2 (03:52→08:15)
[2021-10-09 04:29] LABS: Glucose,Whole Blood 81 mg/dL (75-99)
[2021-10-09 07:16] LABS: Glucose,Whole Blood 87 mg/dL (75-99)
[2021-10-09 08:45] LABS: Anisocytosis Slight; Basophils % (A) 0 %; Eosinophils # (A) 0.1 k/uL (0-0.7); Eosinophils % (A) 1 %; HCT 28.7 % (34.0-46.0); HGB 8.6 gm/dL (11.4-16.0); Hypochromasia Marked; Lymphocytes # (A) 1.5 k/uL (1.0-4.8); Lymphocytes % (A) 13 %; MCH 28.5 pg (25.0-35.0); Mean Platelet Volume 7.7; Monocytes # (A) 0.5 k/uL (0-1.0); Monocytes % (A) 4 %; Neutrophils # (A) 9.3 k/uL (1.3-7.7); Neutrophils % (A) 80 %; Platelet Count 309 k/uL (150-450); RBC 3.02 m/uL (3.80-5.40); RDW 17.1 % (11.5-15.5); WBC 11.6 k/uL (3.8-10.6)
[2021-10-09] MEDS: INSULIN ASPART (NovoLOG) 100 UNIT/ML VIAL SQ SCH ×4 (08:50→20:23)
[2021-10-09] MEDS: METOPROLOL TARTRATE 50 MG TAB PO SCH ×4 (08:54→20:11)
--- NOTE | 2021-10-09 10:02 | P.CONS ---
History of Present Illness - Reason for Consult Consult date: 10/09/21 wound care - History of Present Illness This is a 71-year-old female being seen on [facility] [address] for nonhealing ulceration to the left heel and sacrum. Patient is a poor historian. She does not know how long the ulcerations have been there. The left heel ulceration is stage II pressure ulcer measuring approximately 0.6 x 0.3 x 0.1 cm significant amount of eschar noted to the site. Wound edges are attached to the wound base. No tunneling or undermining noted. The sacral ulceration is a stage II pressure ulcer. Measuring 0.5 x 0.5 x 0.1 cm. Maceration is noted to the periwound. The wound bed shows minimal granulation with significant amount of slough. Past medical history significant for major fibrillation, CVA, diabetes, hypertension. Review Of Systems: Constitutional: No fever, no chills, no night sweats. No weight change. No weakness, fatigue or lethargy. No daytime sleepiness. Integumentary:reports wounds, no lesions. No rash or pruritus. No unusual bruising. No change in hair or nails. Physical exam: General Appearance: Alert, cooperative, no distress, appears stated age. Skin: See HPI all other Skin color, texture, tugor normal, no rashes or lesions. Neurologic: Alert oriented x3 Assessment: 1. Stage II pressure ulcer left heel 2. Stage II pressure ulcer sacrum 3. Diabetic foot ulcer 4. Diabetes with skin ulceration. Plan: 1.Left heel ulceration: Apply honey gel, border foam. Change Saturday 2. Sacral ulceration apply honey gel, Triad to intact skin, sacral border foam. Saturday 3. Patient would benefit from continued advance wound care and outpatient setting. We have to see her in the wound care center. Thank you for the consultation any questions please contact the wound care center DNP note has been reviewed and discussed with Dr. Marte and the impression and plan of care has been directed as dictated. Past Medical History Past Medical History: Atrial Fibrillation, CVA/TIA, Diabetes Mellitus, Hypertension Additional Past Medical History / Comment(s): CVA with slight R sided weakness/past aphasia/dysphagia but staff at [facility] states this is not a current problem, IDDM type II, neuropathy bilateral feet, chronic cervical pain/DDD, back pain, UTIs, muscle weakness, past metabolic encephalopathy and acute kidney failure. History of Any Multi-Drug Resistant Organisms: None Reported Additional Past Surgical History / Comment(s): Gallbladder drain per pt. Past Anesthesia/Blood Transfusion Reactions: No Reported Reaction Past Psychological History: No Psychological Hx Reported Additional Psychological History / Comment(s): Pt resides at [facility]. She feeds herself. She is on a regular diet, can swallow pills whole but will snap larger pills in half. She is a alisa lift to wheelchair where she will sit for one hour then wants to go back to bed. She is incontinent at times. Smoking Status: Never smoker Past Alcohol Use History: None Reported Past Drug Use History: None Reported - Past Family History Mother Family Medical History: No Reported History Additional Family Medical History / Comment(s): Mother was healthy Father Family Medical History: Cancer Additional Family Medical History / Comment(s): Prostate cancer. Medications and Allergies Home Medications Medication Instructions Recorded Confirmed Type Aspirin 81 mg PO HS 08/30/21 10/07/21 History Atorvastatin [Lipitor] 40 mg PO HS@199908/30/21 10/07/21 History Cyanocobalamin [Vitamin B-12] 500 mcg PO HS 08/30/21 10/07/21 History Dermaceptin 1 applic TOPICAL TID 08/30/21 10/07/21 History Febuxostat [Uloric] 80 mg PO DAILY 08/30/21 10/07/21 History Ferrous Sulfate [Iron (65 MG 325 mg PO HS 08/30/21 10/07/21 History Elemental)] INSULIN ASPART (NovoLOG) [NovoLOG See Protocol SQ QID@07,11,16,20 08/30/21 10/07/21 History (formulary)] Magnesium Hydroxide [Milk of 2,400 mg PO DAILY PRN 08/30/21 10/07/21 History Magnesia] Menthol [Biofreeze] 1 applic TOPICAL BID 08/30/21 10/07/21 History Metoprolol Tartrate [Lopressor] 50 mg PO TID@0700,1300,1900 08/30/21 10/07/21 History Povidone-Iodine [Betadine] 1 applic TOPICAL HS 08/30/21 10/07/21 History Prostat 30 ml PO DAILY 08/30/21 10/07/21 History Sennosides [Senna] 8.6 mg PO DAILY PRN 08/30/21 10/07/21 History Acetaminophen Tab [Tylenol] 650 mg PO Q6HR PRN tab 09/04/21 10/07/21 Rx Losartan [Cozaar] 25 mg PO DAILY #6 tab 09/04/21 10/07/21 Rx Doxycycline Monohydrate 100 mg PO BID 10/07/21 10/07/21 History Fluconazole [Diflucan] 100 mg PO ONCE 10/07/21 10/07/21 History Health Shake 1 can PO BID 10/07/21 10/07/21 History Magnesium Oxide [Mag-Ox] 400 mg PO HS 10/07/21 10/07/21 History Omeprazole 20 mg PO DAILY 10/07/21 10/07/21 History Potassium Chloride [Potassium 10 meq PO DAILY 10/07/21 10/07/21 History Chloride ER] Tamsulosin [Flomax] 0.4 mg PO HS 10/07/21 10/07/21 History Allergies Allergy/AdvReac Type Severity Reaction Status Date / Time codeine Allergy Unknown Verified 10/07/21 21:11 morphine Allergy Unknown Verified 10/07/21 21:11 Penicillins Allergy Unknown Verified 10/07/21 21:11 Physical Exam Vitals: Vital Signs Temp Pulse Pulse Resp BP Pulse Ox 10/09/21 08:00 97.5 F L 61 18 117/62 99 10/09/21 00:50 97.6 F 77 17 146/85 99 10/08/21 21:29 97.9 F 86 16 160/84 99 10/08/21 14:00 97.9 F 80 17 145/76 95 Intake and Output 10/08/21 10/09/21 10/09/21 22:59 06:59 14:59 Output Total 200 Balance -200 Output: Urine 200 Other: Voiding Method Diaper Diaper Incontinent Incontinent External Catheter External Catheter # Voids 3 # Bowel Movements 4 5 Results CBC & Chem 7: 10/09/21 08:04 10/07/21 16:31 Labs: Abnormal Lab Results - Last 24 Hours (Table) 10/08/21 10/09/21 Range/Units 20:21 08:04 WBC 11.6 H (3.8-10.6) k/uL RBC 3.02 L (3.80-5.40) m/uL Hgb 8.6 L (11.4-16.0) gm/dL Hct 28.7 L (34.0-46.0) % MCHC 30.0 L (31.0-37.0) g/dL RDW 17.1 H (11.5-15.5) % Neutrophils # 9.3 H (1.3-7.7) k/uL POC Glucose (mg/dL) 100 H (75-99) mg/dL Microbiology - Last 24 Hours (Table) 10/08/21 06:19 Blood Culture - Preliminary Blood No Growth after 24 hours 10/07/21 20:33 Urine Culture - Preliminary Urine,Catheterized Assessment and Plan (1) Stage II pressure ulcer of left heel Current Visit: Yes Status: Acute Code(s): L89.622 - PRESSURE ULCER OF LEFT HEEL, STAGE 2 SNOMED Code(s): 575578948 (2) Stage II pressure ulcer of sacral region Current Visit: Yes Status: Acute Code(s): L89.152 - PRESSURE ULCER OF SACRAL REGION, STAGE 2 SNOMED Code(s): 610491431 (3) Diabetes mellitus with foot ulcer Current Visit: Yes Status: Acute Code(s): E11.621 - TYPE 2 DIABETES MELLITUS WITH FOOT ULCER; L97.509 - NON-PRESSURE CHRONIC ULCER OTH PRT UNSP FOOT W UNSP SEVERITY SNOMED Code(s): 00440730 (4) Diabetes with skin ulcer Current Visit: Yes Status: Acute Code(s): E11.622 - TYPE 2 DIABETES MELLITUS WITH OTHER SKIN ULCER; L98.499 - NON-PRESSURE CHRONIC ULCER OF SKIN OF SITES W UNSP SEVERITY SNOMED Code(s): 74003952
[2021-10-09] MEDS: HYDROPHILIC CREAM 180 GM TUBE TOPICAL SCH (10:55)
[2021-10-09 12:15] LABS: Glucose,Whole Blood 88 mg/dL (75-99)
--- NOTE | 2021-10-09 14:15 | P.PN ---
Subjective Progress Note Date: 10/09/21 Hospital course: Patient is a very pleasant 71-year-old female with a past medical history of atrial fibrillation not on anticoagulation, hypertension, insulin-dependent diabetes mellitus, recent CVA resulting in bedridden status, pressure ulcers, and anemia of chronic disease. She presented to the emergency department on 10/07/21 from [facility] secondary to reports of low hemoglobin and dehydration. Patient was found to have a hypoalbuminemia with albumin of 2.0, hyperkalemia wi th potassium of 5.3, UTI and an acute kidney injury with BUN of 75, creatinine 1.55, and GFR of 33. Patient was admitted under our services for dehydration, acute kidney injury, UTI, and hyperkalemia. Physical exam: Patient was seen and fully evaluated at bedside this morning. Patient denies having any complaints or needs. RN reports patient has not had a very big appetite and continues with poor oral intake. Awaiting dietary evaluation. CBC revealing mild leukocytosis with WBC count of 11.6 and stable normocytic normochromic anemia with hemoglobin of 8.6. CMP pending. Magnesium 1.8. Vital signs reviewed and stable. General: Nontoxic, no distress and appears stated age. Derm: Skin warm and dry, normal coloration for ethnicity. Head: Atraumatic, normocephalic and symmetric. Eyes: EOMs intact, no lid lag, and anicteric sclera Mouth: no lip lesions, mucus membranes moist Cardiovascular: regular rate and rhythm with normal S1S2, systolic murmur, positive posterior tibial pulses bilaterally, and cap refill < 2 seconds. Lungs: Respirations even, regular, and unlabored on room air. Lungs CTA bilaterally, no rhonchi, no rales, no wheezing, and no accessory muscle usage. Abdominal: soft, nontender to palpation, no guarding, no appreciable organomegaly Ext: No gross muscle atrophy, bilateral lower extremity edema, no contractures. AIR boots in place. Neuro: Speech clear, face symmetrical and CN II-XII grossly intact with no noted focal neuro deficits Psych: Alert and oriented to person, place, time, and situation. Appropriate and pleasant affect. Assessment and Plan of Care: Acute kidney injury Dehydration -Continued hydration with IV fluids. -Continue close monitoring with repeat a.m. labs. -Hold nephrotoxic medications such as losartan. UTI -Urinalysis positive for infection, patient has a history of recent UTI with culture positive for Proteus mirabilis. -Urine culture pending. -Continue with IV antibiotics: Rocephin pending culture and sensitivity results. Hyperkalemia -Telemetry monitoring -Hyperkalemia likely secondary to AGUSTÍN, recommend discontinuation of home potassium regimen. -Treatment of AGUSTÍN with IV fluids and we will continue to monitor closely with repeat a.m. labs. Severe protein calorie malnutrition Pressure ulcers, present on admission Lower extremity edema, likely secondary to severe protein calorie malnutrition and hypoalbuminemia -Albumin 2.0. Albumin 9.9 -Consult the dietitian for assistance with protein calorie malnutrition. -Consult wound care for assistance with and evaluation of pressure ulcers present on admission. Hypertension -Monitor vital signs and continue daily medication regimen with metoprolol. L osartan held secondary to AGUSTÍN. Insulin-dependent diabetes mellitus type 2 -Continue glycemic protocol with NovoLog sliding scale. CODE STATUS: Full code DVT prophylaxis: Heparin Discussed with: Patient and RN Anticipated discharge date: Clinical course to determine Anticipated discharge place: Return to [facility] A total of 34 minutes was spent on the care of this complex patient more than 50% of the time was spent in counseling and care coordination. Objective - Vital Signs Vital signs: Vital Signs Temp 97.5 F L 10/09/21 08:00 Pulse 61 10/09/21 08:00 Resp 18 10/09/21 08:00 BP 117/62 10/09/21 08:00 Pulse Ox 99 10/09/21 08:00 Intake & Output 10/08/21 10/09/21 10/09/21 18:59 06:59 18:59 Output Total 200 Balance -200 Output: Urine 200 Other: Voiding Method Diaper Diaper Diaper Incontinent Incontinent Incontinent External Catheter External Catheter # Voids 3 # Bowel Movements 4 5 - Labs CBC & Chem 7: 10/09/21 08:04 10/07/21 16:31 Labs: Abnormal Lab Results - Last 24 Hours (Table) 10/08/21 10/08/21 10/09/21 Range/Units 06:19 20:21 08:04 WBC 11.6 H (3.8-10.6) k/uL RBC 3.02 L (3.80-5.40) m/uL Hgb 8.6 L (11.4-16.0) gm/dL Hct 28.7 L (34.0-46.0) % MCHC 30.0 L (31.0-37.0) g/dL RDW 17.1 H (11.5-15.5) % Neutrophils # 9.3 H (1.3-7.7) k/uL POC Glucose (mg/dL) 100 H (75-99) mg/dL Prealbumin 9.9 L (18.0-42.0) mg/dL Microbiology - Last 24 Hours (Table) 10/08/21 06:19 Blood Culture - Preliminary Blood No Growth after 24 hours 10/07/21 20:33 Urine Culture - Preliminary Urine,Catheterized
[2021-10-09 15:11] VITALS: BMI 30.4
[2021-10-09 16:27] LABS: ALT 8 U/L (4-34); AST 21 U/L (14-36); African American GFR (CKD) 64 (>60 ml/min/1.73 sqM); Albumin 1.8 g/dL (3.5-5.0); Albumin/Globulin Ratio 0.5; Alkaline Phosphatase 113 U/L (38-126); Anion Gap 5 mmol/L; Blood Urea Nitrogen 62 mg/dL (7-17); Calcium 8.1 mg/dL (8.4-10.2); Carbon Dioxide 12 mmol/L (22-30); Chloride 118 mmol/L (98-107); Globulin 3.3 g/dL; Glucose 92 mg/dL (74-99); Non-African American GFR(CKD) 56 (>60 ml/min/1.73 sqM); Sodium 135 mmol/L (137-145); Total Bilirubin 0.4 mg/dL (0.2-1.3); Total Protein 5.1 g/dL (6.3-8.2)
[2021-10-09 16:28] LABS: Potassium 5.1 mmol/L (3.5-5.1)
[2021-10-09 17:30] LABS: Glucose,Whole Blood 84 mg/dL (75-99)
[2021-10-09] MEDS: ASPIRIN 81 MG PO SCH (20:10)
[2021-10-09] MEDS: ATORVASTATIN 40 MG TAB PO SCH (20:10)
[2021-10-09 20:46] LABS: Glucose,Whole Blood 118 mg/dL (75-99)
[2021-10-09] MEDS: ACETAMINOPHEN TAB 325 MG TAB PO PRN (23:34)
[2021-10-10 02:11] LABS: Glucose,Whole Blood 108 mg/dL (75-99)
[2021-10-10 07:43] LABS: Glucose,Whole Blood 93 mg/dL (75-99)
[2021-10-10 09:09] LABS: HCT 24.5 % (37.2-46.3); HGB 7.3 g/dL (12.0-15.0); MCH 27.2 pg (27.0-32.0); MCHC 29.8 g/dL (32.0-37.0); MCV 91.4 fL (80.0-97.0); Mean Platelet Volume 9.9 fL (9.5-12.2); NRBC Per 100 WBC 0 /100 WBCS (0.0-0.0); Platelet Count 250 X 10*3/uL (140-440); RBC 2.68 X 10*6/uL (4.10-5.20); WBC 9.81 X 10*3/uL (4.50-10.00)
[2021-10-10 09:11] LABS: ALT 8 U/L (8-44); AST 14 U/L (13-35); Albumin 1.7 g/dL (3.8-4.9); Albumin/Globulin Ratio 0.63 (1.60-3.17); Alkaline Phosphatase 124 U/L (41-126); BUN/Creat Ratio 57.67 Ratio (12.00-20.00); Blood Urea Nitrogen 51.9 mg/dL (9.0-27.0); Calcium 8.1 mg/dL (8.7-10.3); Carbon Dioxide 14.8 mmol/L (20.0-27.5); Chloride 115 mmol/L (96-109); Globulin 2.7 g/dL (1.6-3.3); Glucose 87 mg/dL (70-110); Magnesium 1.8 mg/dL (1.5-2.4); Non-African American GFR(CKD) 63.9 (60.0-200.0); Sodium 139 mmol/L (135-145); Total Bilirubin <0.15 mg/dL (0.30-1.20); Total Protein 4.4 g/dL (6.2-8.2)
[2021-10-10] MEDS: INSULIN ASPART (NovoLOG) 100 UNIT/ML VIAL SQ SCH ×4 (10:24→21:37)
[2021-10-10] MEDS: HEPARIN SODIUM,PORCINE/PF 5,000 UNIT/0.5 ML SYRINGE SQ SCH ×3 (10:31→20:44)
[2021-10-10] MEDS: HYDROPHILIC CREAM 180 GM TUBE TOPICAL SCH (10:31)
[2021-10-10] MEDS: METOPROLOL TARTRATE 50 MG TAB PO SCH ×4 (10:31→21:53)
[2021-10-10 11:11] LABS: Glucose,Whole Blood 79 mg/dL (75-99)
[2021-10-10] MEDS: SODIUM CHLORIDE 0.9% 1,000 ML IV SCH (11:56)
[2021-10-10 16:48] LABS: Glucose,Whole Blood 108 mg/dL (75-99)
[2021-10-10 16:56] LABS: Appearance,Urine Turbid (Clear); Bacteria,Urine Many /hpf; Bilirubin,Urine Negative (Negative); Blood,Urine Moderate (Negative); Color,Urine Dark Brown; Glucose,Urine (UA) Negative (Negative); Ketones,Urine Negative (Negative); Leukocyte Esterase,Urine Large (Negative); Nitrite,Urine Negative (Negative); Protein,Urine 2+ (Negative); RBC,Urine >182 /hpf (0-5); Urobilinogen,Urine <2.0 mg/dL (<2.0); WBC,Urine >182 /hpf (0-5)
[2021-10-10 16:57] LABS: Specific Gravity,Urine >1.050 (1.001-1.035)
--- NOTE | 2021-10-10 18:57 | P.PN ---
Subjective Progress Note Date: 10/10/21 Hospital course: Patient is a very pleasant 71-year-old female with a past medical history of atrial fibrillation not on anticoagulation, hypertension, insulin-dependent diabetes mellitus, recent CVA resulting in bedridden status, pressure ulcers, and anemia of chronic disease. She presented to the emergency department on 10/07/21 from [facility] secondary to reports of low hemoglobin and dehydration. Patient was found to have a hypoalbuminemia with albumin of 2.0, hyperkalemia wi th potassium of 5.3, UTI and an acute kidney injury with BUN of 75, creatinine 1.55, and GFR of 33. Patient was admitted under our services for dehydration, acute kidney injury, UTI, and hyperkalemia. Physical exam: Patient was seen and fully evaluated at bedside this morning. Patient denies having any complaints or needs. She continues to have a poor appetite and when questioned, patient states it is too early to eat. Patient encouraged oral intake and dietary to eval. Morning labs reveal resolution of leukocytosis, hyperkalemia, and AGUSTÍN. Patient denies having any headache, lightheadedness, chest pain, palpitations, or shortness of breath. She remains on IV antibiotics with Rocephin pending final culture and sensitivity results. Vital signs reviewed and stable. General: Nontoxic, no distress and appears stated age. Derm: Skin warm and dry, normal coloration for ethnicity. Head: Atraumatic, normocephalic and symmetric. Eyes: EOMs intact, no lid lag, and anicteric sclera Mouth: no lip lesions, mucus membranes moist Cardiovascular: regular rate and rhythm with normal S1S2, systolic murmur, positive posterior tibial pulses bilaterally, and cap refill < 2 seconds. Lungs: Respirations even, regular, and unlabored on room air. Lungs CTA bilaterally, no rhonchi, no rales, no wheezing, and no accessory muscle usage. Abdominal: soft, nontender to palpation, no guarding, no appreciable organomegaly Ext: No gross muscle atrophy, bilateral lower extremity edema, no contractures. AIR boots in place. Neuro: Speech clear, face symmetrical and CN II-XII grossly intact with no noted focal neuro deficits Psych: Alert and oriented to person, place, time, and situation. Appropriate and pleasant affect. Assessment and Plan of Care: Acute kidney injury, resolved after hydration with IV fluids Dehydration -Continued hydration with IV fluids. -Continue close monitoring with repeat a.m. labs. -Hold nephrotoxic medications such as losartan. UTI -Urinalysis positive for infection, patient has a history of recent UTI with culture positive for Proteus mirabilis. -Urine culture pending. -Continue with IV antibiotics: Rocephin pending culture and sensitivity results. Hyperkalemia, resolved -Telemetry monitoring -Hyperkalemia likely secondary to AGUSTÍN, recommend discontinuation of home potassium regimen. -Patient received Treatment of AGUSTÍN with IV fluids and we will continue with gentle hydration using an 0.9% normal saline at 50 mL's per hour and closely monitor with repeat a.m. labs. Severe protein calorie malnutrition Pressure ulcers, present on admission Lower extremity edema, likely secondary to severe protein calorie malnutrition and hypoalbuminemia -Albumin 2.0. Albumin 9.9 -Consult the dietitian for assistance with protein calorie malnutrition. -Consult wound care for assistance with and evaluation of pressure ulcers present on admission. Hypertension -Monitor vital signs and continue daily medication regimen with metoprolol. Losartan held secondary to AGUSTÍN. Insulin-dependent diabetes mellitus type 2 -Continue glycemic protocol with NovoLog sliding scale. CODE STATUS: Full code DVT prophylaxis: Heparin Discussed with: Patient and RN Anticipated discharge date: Clinical course to determine Anticipated discharge place: Return to [facility] A total of 34 minutes was spent on the care of this complex patient more than 50% of the time was spent in counseling and care coordination. Objective - Vital Signs Vital signs: Vital Signs Temp 98.6 F 10/10/21 07:58 Pulse 63 10/10/21 07:58 Resp 17 10/10/21 07:58 BP 130/75 10/10/21 07:58 Pulse Ox 98 10/10/21 07:58 Intake & Output 10/09/21 10/10/21 10/10/21 18:59 06:59 18:59 Intake Total 400 Output Total 550 Balance -550 400 Weight 90.718 kg Intake: Intake, IV Titration 400 Amount Sodium Chloride 0.9% 1, 400 000 ml @ 50 mls/hr IV . Q20H [facility] Rx#:[id number] Output: Urine 550 Other: Voiding Method Diaper Diaper Incontinent Incontinent External Catheter # Voids 1 # Bowel Movements 1 - Labs CBC & Chem 7: 10/10/21 04:52 10/10/21 04:52 Labs: Abnormal Lab Results - Last 24 Hours (Table) 10/09/21 10/09/21 10/09/21 Range/Units 08:04 15:27 20:21 WBC 11.6 H (3.8-10.6) k/uL RBC 3.02 L (3.80-5.40) m/uL Hgb 8.6 L (11.4-16.0) gm/dL Hct 28.7 L (34.0-46.0) % MCHC 30.0 L (31.0-37.0) g/dL RDW 17.1 H (11.5-15.5) % Neutrophils # 9.3 H (1.3-7.7) k/uL Sodium 135 L (137-145) mmol/L Chloride 118 H (98-107) mmol/L Carbon Dioxide 12 L (22-30) mmol/L BUN 62 H (7-17) mg/dL POC Glucose (mg/dL) 118 H (75-99) mg/dL Calcium 8.1 L (8.4-10.2) mg/dL Total Protein 5.1 L (6.3-8.2) g/dL Albumin 1.8 L (3.5-5.0) g/dL 10/10/21 Range/Units 02:08 WBC (3.8-10.6) k/uL RBC (3.80-5.40) m/uL Hgb (11.4-16.0) gm/dL Hct (34.0-46.0) % MCHC (31.0-37.0) g/dL RDW (11.5-15.5) % Neutrophils # (1.3-7.7) k/uL Sodium (137-145) mmol/L Chloride (98-107) mmol/L Carbon Dioxide (22-30) mmol/L BUN (7-17) mg/dL POC Glucose (mg/dL) 108 H (75-99) mg/dL Calcium (8.4-10.2) mg/dL Total Protein (6.3-8.2) g/dL Albumin (3.5-5.0) g/dL Microbiology - Last 24 Hours (Table) 10/07/21 20:33 Urine Culture - Preliminary Urine,Catheterized Gram Neg Bacilli 10/08/21 06:19 Blood Culture - Preliminary Blood No Growth after 24 hours
[2021-10-10 20:41] LABS: Glucose,Whole Blood 124 mg/dL (75-99)
[2021-10-10] MEDS: ASPIRIN 81 MG PO SCH ×2 (20:44→21:53)
[2021-10-10] MEDS: ATORVASTATIN 40 MG TAB PO SCH ×2 (20:45→21:53)
[2021-10-10] MEDS: ACETAMINOPHEN TAB 325 MG TAB PO PRN (20:45)
[2021-10-11 06:46] LABS: Glucose,Whole Blood 127 mg/dL (75-99)
[2021-10-11] MEDS: INSULIN ASPART (NovoLOG) 100 UNIT/ML VIAL SQ SCH ×4 (07:00→21:16)
[2021-10-11] MEDS: SODIUM CHLORIDE 0.9% 1,000 ML IV SCH (07:05)
[2021-10-11] MEDS: HEPARIN SODIUM,PORCINE/PF 5,000 UNIT/0.5 ML SYRINGE SQ SCH ×3 (07:05→22:59)
[2021-10-11 07:40] LABS: Anisocytosis Slight; HCT 30.1 % (34.0-46.0); HGB 9.7 gm/dL (11.4-16.0); Hypochromasia Marked; MCH 29.5 pg (25.0-35.0); MCHC 32.1 g/dL (31.0-37.0); MCV 91.8 fL (80.0-100.0); Mean Platelet Volume 8.6; Platelet Count 300 k/uL (150-450); RBC 3.28 m/uL (3.80-5.40); RDW 17.4 % (11.5-15.5); WBC 12.7 k/uL (3.8-10.6)
[2021-10-11] MEDS: HYDROPHILIC CREAM 180 GM TUBE TOPICAL SCH (08:07)
[2021-10-11] MEDS: METOPROLOL TARTRATE 50 MG TAB PO SCH ×3 (08:07→22:59)
[2021-10-11 09:18] LABS: ALT 9 U/L (4-34); AST 19 U/L (14-36); African American GFR (CKD) 83 (>60 ml/min/1.73 sqM); Albumin 1.6 g/dL (3.5-5.0); Albumin/Globulin Ratio 0.5; Alkaline Phosphatase 144 U/L (38-126); Anion Gap 2 mmol/L; Blood Urea Nitrogen 48 mg/dL (7-17); Calcium 8.1 mg/dL (8.4-10.2); Carbon Dioxide 17 mmol/L (22-30); Chloride 117 mmol/L (98-107); Globulin 3.1 g/dL; Glucose 91 mg/dL (74-99); Magnesium 1.8 mg/dL (1.6-2.3); Non-African American GFR(CKD) 72 (>60 ml/min/1.73 sqM); Potassium 4.2 mmol/L (3.5-5.1); Sodium 136 mmol/L (137-145); Total Bilirubin 0.3 mg/dL (0.2-1.3); Total Protein 4.7 g/dL (6.3-8.2)
[2021-10-11 10:47] LABS: Glucose,Whole Blood 111 mg/dL (75-99)
[2021-10-11 16:52] LABS: Glucose,Whole Blood 127 mg/dL (75-99)
[2021-10-11] MEDS ORDERED: SODIUM CHLORIDE 0.9% 1,000 ML IV ONE (17:29)
--- NOTE | 2021-10-11 17:41 | P.PN ---
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 She presented to the emergency department on 10/07/21 from [facility] secondary to reports of low hemoglobin and dehydration. Patient was found to have a hypoalbuminemia with albumin of 2.0, hyperkalemia wi th potassium of 5.3, UTI and an acute kidney injury with BUN of 75, creatinine 1.55, and GFR of 33. Patient was admitted under our services for dehydration, acute kidney injury, UTI, and hyperkalemia. Urine cultures positive for multidrug resistant Providencia stuartii. Physical exam: Patient was seen and fully evaluated at bedside this morning. Patient reports diffuse lower abdominal tenderness upon palpation, we will place order for CT abdomen and pelvis. Urine cultures positive for multidrug resistant Providencia stuartii, patient to remain on Rocephin as indicated per sensitivity report. Morning labs revealed mild leukocytosis with WBC count of 12.7 and normocytic normochromic anemia with hemoglobin of 9.7. Alkaline phosphatase remains elevated at 144. Vital signs reviewed and stable. General: Nontoxic, no distress and appears stated age. Derm: Skin warm and dry, normal coloration for ethnicity. Head: Atraumatic, normocephalic and symmetric. Eyes: EOMs intact, no lid lag, and anicteric sclera Mouth: no lip lesions, mucus membranes moist Cardiovascular: regular rate and rhythm with normal S1S2, systolic murmur, positive posterior tibial pulses bilaterally, and cap refill < 2 seconds. Lungs: Respirations even, regular, and unlabored on room air. Lungs CTA bilate rally, no rhonchi, no rales, no wheezing, and no accessory muscle usage. Abdominal: soft, diffuse tenderness upon palpation to lower abdomen, no guarding, no appreciable organomegaly Ext: No gross muscle atrophy, bilateral lower extremity edema, no contractures. AIR boots in place. Neuro: Speech clear, face symmetrical and CN II-XII grossly intact with no noted focal neuro deficits Psych: Alert and oriented to person, place and remains confused to time and situation. Assessment and Plan of Care: Acute kidney injury, resolved after hydration with IV fluids Dehydration -Continued hydration with IV fluids. -Continue close monitoring with repeat a.m. labs. -Hold nephrotoxic medications such as losartan. Providencia stuartii UTI -Urine culture positive for multidrug resistant Providencia stuartii -Continue with IV antibiotics: Rocephin -Will obtain abdominal CT secondary to complaints of abdominal discomfort upon palpation. Hyperkalemia, resolved -Telemetry monitoring -Hyperkalemia likely secondary to AGUSTÍN, recommend discontinuation of home potassium regimen. -Patient received Treatment of AGUSTÍN with IV fluids and we will continue with gentle hydration using an 0.9% normal saline at 50 mL's per hour and closely monitor with repeat a.m. labs. Severe protein calorie malnutrition Pressure ulcers, present on admission Lower extremity edema, likely secondary to severe protein calorie malnutrition and hypoalbuminemia -Albumin 2.0. Albumin 9.9 -Consult the dietitian for assistance with protein calorie malnutrition. -Consult wound care for assistance with and evaluation of pressure ulcers present on admission. Hypertension -Monitor vital signs and continue daily medication regimen with metoprolol. Losartan held secondary to AGUSTÍN. Insulin-dependent diabetes mellitus type 2 -Continue glycemic protocol with NovoLog sliding scale. CODE STATUS: Full code DVT prophylaxis: Heparin Discussed with: Patient and RN Anticipated discharge date: Clinical course to determine Anticipated discharge place: Return to [facility] A total of 41 minutes was spent on the care of this complex patient more than 50% of the time was spent in counseling and care coordination. I reviewed the documentation as provided by the SHIREEN above, who is the original author of this note. I agree with the documented assessment and plan, with the following changes: None Objective - Vital Signs Vital signs: Vital Signs Temp 98.9 F 10/11/21 01:25 Pulse 71 10/11/21 01:25 Resp 20 10/11/21 01:25 BP 116/61 10/11/21 01:25 Pulse Ox 97 10/11/21 01:25 Intake & Output 10/10/21 10/11/21 10/11/21 18:59 06:59 18:59 Intake Total 360 Balance 360 Intake: Blood Product 360 Other: Voiding Method Diaper Diaper Incontinent Incontinent Indwelling Catheter # Voids 2 - Labs CBC & Chem 7: 10/11/21 07:20 10/11/21 07:20 Labs: Abnormal Lab Results - Last 24 Hours (Table) 10/10/21 10/10/21 10/10/21 Range/Units 04:52 04:52 16:42 WBC (3.8-10.6) k/uL RBC 2.68 L (4.10-5.20) X 10*6/uL Hgb 7.3 L (12.0-15.0) g/dL Hct 24.5 L (37.2-46.3) % MCHC 29.8 L (32.0-37.0) g/dL RDW 19.0 H (11.5-14.5) % Chloride 115 H (96-109) mmol/L Carbon Dioxide 14.8 L (20.0-27.5) mmol/L Anion Gap 9.20 L (10.00-18.00) mmol/L BUN 51.9 H (9.0-27.0) mg/dL BUN/Creatinine Ratio 57.67 H (12.00-20.00) Ratio POC Glucose (mg/dL) 108 H (75-99) mg/dL Calcium 8.1 L (8.7-10.3) mg/dL Total Bilirubin <0.15 L (0.30-1.20) mg/dL Total Protein 4.4 L (6.2-8.2) g/dL Albumin 1.7 L (3.8-4.9) g/dL Albumin/Globulin Ratio 0.63 L (1.60-3.17) g/dL Urine Appearance (Clear) Ur Specific [place] (1.001-1.035) Urine Protein (Negative) Urine Blood (Negative) Ur Leukocyte Esterase (Negative) Urine RBC (0-5) /hpf Urine WBC (0-5) /hpf Urine WBC Clumps (None) /hpf Urine Bacteria (None) /hpf 10/10/21 10/10/21 10/11/21 Range/Units 16:45 20:39 06:44 WBC (3.8-10.6) k/uL RBC (4.10-5.20) X 10*6/uL Hgb (12.0-15.0) g/dL Hct (37.2-46.3) % MCHC (32.0-37.0) g/dL RDW (11.5-14.5) % Chloride (96-109) mmol/L Carbon Dioxide (20.0-27.5) mmol/L Anion Gap (10.00-18.00) mmol/L BUN (9.0-27.0) mg/dL BUN/Creatinine Ratio (12.00-20.00) Ratio POC Glucose (mg/dL) 124 H 127 H (75-99) mg/dL Calcium (8.7-10.3) mg/dL Total Bilirubin (0.30-1.20) mg/dL Total Protein (6.2-8.2) g/dL Albumin (3.8-4.9) g/dL Albumin/Globulin Ratio (1.60-3.17) g/dL Urine Appearance Turbid H (Clear) Ur Specific [place] >1.050 H (1.001-1.035) Urine Protein 2+ H (Negative) Urine Blood Moderate H (Negative) Ur Leukocyte Esterase Large H (Negative) Urine RBC >182 H (0-5) /hpf Urine WBC >182 H (0-5) /hpf Urine WBC Clumps Many H (None) /hpf Urine Bacteria Many H (None) /hpf 10/11/21 Range/Units 07:20 WBC 12.7 H (3.8-10.6) k/uL RBC 3.28 L (4.10-5.20) X 10*6/uL Hgb 9.7 L (12.0-15.0) g/dL Hct 30.1 L (37.2-46.3) % MCHC (32.0-37.0) g/dL RDW 17.4 H (11.5-14.5) % Chloride (96-109) mmol/L Carbon Dioxide (20.0-27.5) mmol/L Anion Gap (10.00-18.00) mmol/L BUN (9.0-27.0) mg/dL BUN/Creatinine Ratio (12.00-20.00) Ratio POC Glucose (mg/dL) (75-99) mg/dL Calcium (8.7-10.3) mg/dL Total Bilirubin (0.30-1.20) mg/dL Total Protein (6.2-8.2) g/dL Albumin (3.8-4.9) g/dL Albumin/Globulin Ratio (1.60-3.17) g/dL Urine Appearance (Clear) Ur Specific [place] (1.001-1.035) Urine Protein (Negative) Urine Blood (Negative) Ur Leukocyte Esterase (Negative) Urine RBC (0-5) /hpf Urine WBC (0-5) /hpf Urine WBC Clumps (None) /hpf Urine Bacteria (None) /hpf Microbiology - Last 24 Hours (Table) 10/10/21 16:45 Urine Culture - Preliminary Urine,Voided 10/07/21 20:33 Urine Culture - Final Urine,Catheterized Providencia stuartii 10/08/21 06:19 Blood Culture - Preliminary Blood No Growth after 48 hours
[2021-10-11 20:41] LABS: Glucose,Whole Blood 128 mg/dL (75-99)
[2021-10-11] MEDS: ATORVASTATIN 40 MG TAB PO SCH (22:59)
[2021-10-11] MEDS: ASPIRIN 81 MG PO SCH (22:59)
--- NOTE | 2021-10-12 03:13 | CT ---
EXAMINATION TYPE: CT abdomen pelvis wo con DATE OF EXAM: 10/12/2021 COMPARISON: None HISTORY: diffuse abd pain CT DLP: 689.5 mGycm Automated exposure control for dose reduction was used. Images obtained from the diaphragm to the floor the pelvis without contrast. There are bilateral pleural effusions. There is infiltrate and atelectasis at both lung bases and mor e on the right side. Pleural fluid is more on the right side. Heart is top normal in size. There is c oronary artery dense calcification. There is markedly dilated gallbladder with multiple cholesterol gallstones. Gallbladder measures 8 cm in diameter. Spleen is intact. The stomach is distended with fluid. The bile ducts are not dilated. Liver shows no focal defect. There is no pancreatic mass. There is no adrenal mass. Kidneys have normal size. There is bilateral hydronephrosis and hydroureter . There is a Vargas catheter in urinary bladder. There is fluid level in the bladder consistent with t he catheterization. There is no inguinal hernia. There is no free fluid in the pelvis. There is subcutaneous edema around the abdomen. There is no evidence of a bowel obstruction. No signi ficant dilated loops. No evidence of free air. No ascites. The lumbar vertebra abnormal alignment. There is some mild anterior wedging of L2 vertebra 20%. The b shivam pelvis is intact. IMPRESSION: There is mild hydronephrosis and hydroureter that could relate to chronic bladder outlet obstruction. Markedly dilated gallbladder with large gallstones. No dilated ducts. Pleural effusions and lower lobe pulmonary infiltrates and atelectasis. Congestive heart failure is p ossible.
[2021-10-12] MEDS: SODIUM CHLORIDE 0.9% 1,000 ML IV SCH ×2 (04:42→21:37)
[2021-10-12 07:13] LABS: Glucose,Whole Blood 115 mg/dL (75-99)
[2021-10-12] MEDS: INSULIN ASPART (NovoLOG) 100 UNIT/ML VIAL SQ SCH ×4 (07:45→21:38)
[2021-10-12] MEDS: HEPARIN SODIUM,PORCINE/PF 5,000 UNIT/0.5 ML SYRINGE SQ SCH ×3 (09:03→21:37)
[2021-10-12] MEDS: METOPROLOL TARTRATE 50 MG TAB PO SCH ×4 (09:03→21:43)
[2021-10-12] MEDS: HYDROPHILIC CREAM 180 GM TUBE TOPICAL SCH (09:22)
[2021-10-12 12:04] LABS: Glucose,Whole Blood 121 mg/dL (75-99)
--- NOTE | 2021-10-12 15:54 | P.PN ---
Subjective Progress Note Date: 10/12/21 Principal diagnosis: Urosepsis, and NSTEMI Patient seen and examined at bedside this morning. Patient's friend is at bedside. Denies any abdominal pain today. Computed tomography scan of the abdomen and pelvis reviewed, hydronephrosis noted. Urine culture report revealed. Patient is on IV ceftriaxone. Reports extreme weakness. Denies chest pain, shortness of breath or palpitations. Denies nausea and vomiting. Tolerating by mouth intake. Objective - Vital Signs Vital signs: Vital Signs Temp 98.1 F 10/12/21 14:00 Pulse 81 10/12/21 14:00 Resp 16 10/12/21 14:00 BP 149/78 10/12/21 14:00 Pulse Ox 99 10/12/21 14:00 Intake & Output 10/11/21 10/12/21 10/12/21 18:59 06:59 18:59 Output Total 700 850 Balance -700 -850 Weight 90.718 kg Output: Urine 700 850 Other: Voiding Method Diaper Indwelling Catheter Indwelling Catheter Incontinent Indwelling Catheter # Bowel Movements 1 - Exam Constitutional: No acute distress, conversant, pleasant Eyes: Anicteric sclerae, moist conjunctiva, no lid-lag PERRLA ENMT: NC/AT Oropharynx clear, no erythema, exudates Neck: Supple, FROM, no masses, or JVD No carotid bruits No thyromegaly Lungs: Clear to auscultation Clear to percussion Normal respiratory effort, no accessory muscle use Cardiovascular: Heart regular in rate and rhythm, Systolic murmur, gallops, or rubs No peripheral edema Abdominal: Soft Nontender, no guarding, rebound or rigidity Abdomen moving with respiration Normoactive bowel sounds No hepatomegaly, No splenomegaly No palpable mass No abdominal wall hernia noted Skin: Normal temperature, tone, texture, turgor No induration No subcutaneous nodules No rash, lesions No ulcers Extremities: No digital cyanosis No clubbing Pedal pulses intact and symmetrical Radial pulses intact and symmetrical Normal gait and station No calf tenderness Psychiatric: Alert and oriented to person, place and time Appropriate affect Intact judgement Neuro: Moving all 4 extremities - Labs CBC & Chem 7: 10/11/21 07:20 10/11/21 07:20 Labs: Abnormal Lab Results - Last 24 Hours (Table) 10/11/21 10/11/21 10/12/21 Range/Units 16:51 20:39 07:11 POC Glucose (mg/dL) 127 H 128 H 115 H (75-99) mg/dL 10/12/21 Range/Units 12:03 POC Glucose (mg/dL) 121 H (75-99) mg/dL Microbiology - Last 24 Hours (Table) 10/08/21 06:19 Blood Culture - Preliminary Blood No Growth after 96 hours 10/10/21 16:45 Urine Culture - Preliminary Urine,Voided Group D Enterococcus Gram Neg Bacilli Assessment and Plan Assessment: Assessment and plan Acute kidney injury -Prerenal -Improved with hydration and IV fluids -Continue holding nephrotoxic medications -Monitor BMP UTI with urosepsis -Providencia stuartii -On IV ceftriaxone. Continue IV antibiotic -Computed tomography scan of the abdomen and pelvis showed hydronephrosis, mild. Consult urology Hyperkalemia, resolved - Continue to monitor BMP Severe protein calorie malnutrition -Associated with pressure ulcers, present on admission and lower extremity edema -Dietitian consult following -Wound care consult and following Hypertension -Continue to monitor BP and continue antihypertensives as ordered. -Old home medication of losartan secondary to anu Insulin-dependent type 2 diabetes -Continue sliding scale insulin Discussed with case management, anticipated discharge back to skilled facility. Time with Patient: Greater than 30 (More than 50% of the time was spent in care coordination and counseling)
[2021-10-12 16:59] LABS: Glucose,Whole Blood 194 mg/dL (75-99)
--- NOTE | 2021-10-12 19:24 | P.GSCN ---
History of Present Illness Consult date: 10/12/21 History of present illness: 71-year-old female admitted to the hospital several days ago with failure to thrive, anemia, urinary tract infection. The patient's history is prominent for a stroke a few months ago that left her mobilized and prison dependent. The patient is very nonverbal, which of this is due to the stroke is indeterminate. She has marked edema in her lower extremities during this hospitalization the. The patient had a CAT scan of the abdomen identified bilateral mild hydronephrosis with incomplete bladder emptying. The patient is unaware of any of this. She states that she has not had any problems. Prior to her stroke she had no history of recurrent infections incontinence or difficulty voiding. Since her stroke she cannot really give a strong history as to the urinary status. Indwelling catheter with cloudy urine at this point in time. She had a culture that was catheterized on 312 that identified probable dementia. She had a repeat culture on 3:15 identifying enterococcus however the catheter been in place at that point in time. Review of Systems ROS unobtainable: due to mental status Past Medical History Past Medical History: Atrial Fibrillation, CVA/TIA, Diabetes Mellitus, Hypertension Additional Past Medical History / Comment(s): CVA with slight R sided weakness/past aphasia/dysphagia but staff [facility] states this is not a current problem, IDDM type II, neuropathy bilateral feet, chronic cervical pa in/DDD, back pain, UTIs, muscle weakness, past metabolic encephalopathy and acute kidney failure. History of Any Multi-Drug Resistant Organisms: None Reported Additional Past Surgical History / Comment(s): Gallbladder drain per pt. Past Anesthesia/Blood Transfusion Reactions: No Reported Reaction Past Psychological History: No Psychological Hx Reported Additional Psychological History / Comment(s): Pt resides at [facility]. She feeds herself. She is on a regular diet, can swallow pills whole but will snap larger pills in half. She is a alisa lift to wheelchair where she will sit for one hour then wants to go back to bed. She is incontinent at times. Smoking Status: Never smoker Past Alcohol Use History: None Reported Past Drug Use History: None Reported - Past Family History Mother Family Medical History: No Reported History Additional Family Medical History / Comment(s): Mother was healthy Father Family Medical History: Cancer Additional Family Medical History / Comment(s): Prostate cancer. Medications and Allergies Home Medications Medication Instructions Recorded Confirmed Type Aspirin 81 mg PO HS 08/30/21 10/07/21 History Atorvastatin [Lipitor] 40 mg PO HS@199908/30/21 10/07/21 History Cyanocobalamin [Vitamin B-12] 500 mcg PO HS 08/30/21 10/07/21 History Dermaceptin 1 applic TOPICAL TID 08/30/21 10/07/21 History Febuxostat [Uloric] 80 mg PO DAILY 08/30/21 10/07/21 History Ferrous Sulfate [Iron (65 MG 325 mg PO HS 08/30/21 10/07/21 History Elemental)] INSULIN ASPART (NovoLOG) [NovoLOG See Protocol SQ QID@07,11,16,20 08/30/21 10/07/21 History (formulary)] Magnesium Hydroxide [Milk of 2,400 mg PO DAILY PRN 08/30/21 10/07/21 History Magnesia] Menthol [Biofreeze] 1 applic TOPICAL BID 08/30/21 10/07/21 History Metoprolol Tartrate [Lopressor] 50 mg PO TID@0700,1300,1900 08/30/21 10/07/21 History Povidone-Iodine [Betadine] 1 applic TOPICAL HS 08/30/21 10/07/21 History Prostat 30 ml PO DAILY 08/30/21 10/07/21 History Sennosides [Senna] 8.6 mg PO DAILY PRN 08/30/21 10/07/21 History Acetaminophen Tab [Tylenol] 650 mg PO Q6HR PRN tab 09/04/21 10/07/21 Rx Losartan [Cozaar] 25 mg PO DAILY #6 tab 09/04/21 10/07/21 Rx Doxycycline Monohydrate 100 mg PO BID 10/07/21 10/07/21 History Fluconazole [Diflucan] 100 mg PO ONCE 10/07/21 10/07/21 History Health Shake 1 can PO BID 10/07/21 10/07/21 History Magnesium Oxide [Mag-Ox] 400 mg PO HS 10/07/21 10/07/21 History Omeprazole 20 mg PO DAILY 10/07/21 10/07/21 History Potassium Chloride [Potassium 10 meq PO DAILY 10/07/21 10/07/21 History Chloride ER] Tamsulosin [Flomax] 0.4 mg PO HS 10/07/21 10/07/21 History Allergies Allergy/AdvReac Type Severity Reaction Status Date / Time codeine Allergy Unknown Verified 10/07/21 21:11 morphine Allergy Unknown Verified 10/07/21 21:11 Penicillins Allergy Unknown Verified 10/07/21 21:11 Surgical - Exam Vital Signs Temp Pulse Resp BP Pulse Ox 98.1 F 83 16 124/61 97 10/07/21 15:58 10/07/21 15:58 10/07/21 15:58 10/07/21 15:58 10/07/21 15:58 - General well developed, well nourished - Eyes PERRL - ENT no hearing loss - Neck trachea midline - Respiratory normal respiratory effort - Cardiovascular Rhythm: regular - Abdomen Abdomen: soft, non tender - Genitourinary The patient does not have any vaginal prolapse. - Integumentary Marked lower extremity edema and edema of her hands. Results - Labs 10/11/21 07:20 10/11/21 07:20 Abnormal Lab Results - Last 24 Hours (Table) 10/11/21 10/12/21 10/12/21 Range/Units 20:39 07:11 12:03 POC Glucose (mg/dL) 128 H 115 H 121 H (75-99) mg/dL 10/12/21 Range/Units 16:58 POC Glucose (mg/dL) 194 H (75-99) mg/dL Microbiology - Last 24 Hours (Table) 10/08/21 06:19 Blood Culture - Preliminary Blood No Growth after 96 hours 10/10/21 16:45 Urine Culture - Preliminary Urine,Voided Group D Enterococcus Gram Neg Bacilli - Imaging CT scan - abdomen: report reviewed, image reviewed CT scan - pelvis: report reviewed, image reviewed Assessment and Plan Assessment: Impression: Status post stroke. Anemia indeterminate etiology. Urinary tract infection. Mild hydronephrosis with incomplete bladder emptying acute versus chronic. Recommendations: The hydronephrosis is due to the incomplete bladder emptying. Whether the incomplete bladder emptying is due to the stroke or chronic incomplete bladder emptying is indeterminate. He also could be due to the weakness and anemia that she is presently dealing with and it could contribute to the inability to urinate at this point in time. I would leave indwelling catheter until she is more mobile or feeling better. At that point time can be removed for a voiding trial. We will follow this patient with you.
[2021-10-12 20:30] LABS: Glucose,Whole Blood 106 mg/dL (75-99)
[2021-10-12] MEDS: ASPIRIN 81 MG PO SCH ×2 (21:36→21:43)
[2021-10-12] MEDS: ATORVASTATIN 40 MG TAB PO SCH (21:36)
[2021-10-13 07:52] LABS: Glucose,Whole Blood 98 mg/dL (75-99)
[2021-10-13] MEDS: INSULIN ASPART (NovoLOG) 100 UNIT/ML VIAL SQ SCH ×4 (07:54→21:17)
[2021-10-13] MEDS ORDERED: PIPERACILLIN-TAZOBACTAM 3.375 GM in SODIUM CHLORIDE 0.9% 100 ML IVPB SCH (08:00)
[2021-10-13 09:01] LABS: Basophils # (A) 0.02 X 10*3/uL (0.00-0.10); Basophils % (A) 0.1 %; Eosinophils # (A) 0.18 X 10*3/uL (0.04-0.35); Eosinophils % (A) 1.3 %; HCT 26.1 % (37.2-46.3); HGB 7.7 g/dL (12.0-15.0); Immature Grans, Automated 1.1 %; Lymphocytes # (A) 1.77 X 10*3/uL (0.90-5.00); Lymphocytes % (A) 12.6 %; MCHC 29.5 g/dL (32.0-37.0); MCV 91.6 fL (80.0-97.0); Mean Platelet Volume 10.3 fL (9.5-12.2); Monocytes # (A) 1.06 X 10*3/uL (0.20-1.00); Monocytes % (A) 7.5 %; NRBC Per 100 WBC 0 /100 WBCS (0.0-0.0); Neutrophils % (A) 77.4 %; Platelet Count 350 X 10*3/uL (140-440); RBC 2.85 X 10*6/uL (4.10-5.20); RDW 19.1 % (11.5-14.5); WBC 14.08 X 10*3/uL (4.50-10.00)
[2021-10-13] MEDS: HEPARIN SODIUM,PORCINE/PF 5,000 UNIT/0.5 ML SYRINGE SQ SCH ×2 (09:13→17:21)
[2021-10-13] MEDS: METOPROLOL TARTRATE 50 MG TAB PO SCH ×3 (09:13→21:34)
[2021-10-13 09:28] LABS: African American GFR (CKD) 112.1 (60.0-200.0); Anion Gap 6.4 mmol/L (10.00-18.00); BUN/Creat Ratio 50.2 Ratio (12.00-20.00); Blood Urea Nitrogen 25.1 mg/dL (9.0-27.0); Calcium 8.1 mg/dL (8.7-10.3); Carbon Dioxide 15.6 mmol/L (20.0-27.5); Non-African American GFR(CKD) 96.7 (60.0-200.0); Potassium 3.9 mmol/L (3.5-5.5)
--- NOTE | 2021-10-13 10:40 | P.PN ---
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 Urine cultures positive for multidrug resistant organisms. Patient was seen and evaluated that this morning. Her vital signs are stable. She is afebrile. Denies chills. Denies chest pain, shortness of breath or palpitations. Most recent urine culture results show growth of E. coli and VRE. Blood cultures have been negative so far. She reports that she still feels weak and would like to get out of the bed and sit in chair. I discussed this with RN and I have asked physical therapy to work with the patient today. Patient reports that she is tolerating by mouth intake without any issues. WBC count increased from yesterday. Creatinine has improved. Objective - Vital Signs Vital signs: Vital Signs Temp 97.7 F 10/13/21 08:00 Pulse 90 10/13/21 08:00 Resp 16 10/13/21 08:00 BP 121/72 10/13/21 08:00 Pulse Ox 100 10/13/21 08:00 Intake & Output 10/12/21 10/13/21 10/13/21 18:59 06:59 18:59 Output Total 800 400 Balance -800 -400 Weight 90.718 kg Output: Urine 800 400 Other: Voiding Method Indwelling Catheter Indwelling Catheter # Bowel Movements 1 - Exam Constitutional: No acute distress, on room air HEENT: Pupils equally reactive to light, atraumatic, normocephalic. Lungs: Clear to auscultation bilaterally, no wheezing, no crackles Cardiovascular: RRR, S1-S2 normal, no murmur, 2+ peripheral edema which is chronic per patient Abdominal: Soft, nontender, no guarding, rebound or rigidity Extremities: No cyanosis or clubbing Neuro: Able to move all extremities, alert and oriented - Labs CBC & Chem 7: 10/13/21 06:00 10/13/21 06:00 Labs: Abnormal Lab Results - Last 24 Hours (Table) 10/12/21 10/12/21 10/12/21 Range/Units 12:03 16:58 20:29 WBC (4.50-10.00) X 10*3/uL RBC (4.10-5.20) X 10*6/uL Hgb (12.0-15.0) g/dL Hct (37.2-46.3) % MCHC (32.0-37.0) g/dL RDW (11.5-14.5) % Immature Gran # (0.00-0.04) X 10*3/uL Neutrophils # (1.80-7.70) X 10*3/uL Monocytes # (0.20-1.00) X 10*3/uL Chloride (96-109) mmol/L Carbon Dioxide (20.0-27.5) mmol/L Anion Gap (10.00-18.00) mmol/L Creatinine (0.6-1.5) mg/dL BUN/Creatinine Ratio (12.00-20.00) Ratio POC Glucose (mg/dL) 121 H 194 H 106 H (75-99) mg/dL Calcium (8.7-10.3) mg/dL 10/13/21 10/13/21 Range/Units 06:00 06:00 WBC 14.08 H (4.50-10.00) X 10*3/uL RBC 2.85 L (4.10-5.20) X 10*6/uL Hgb 7.7 L (12.0-15.0) g/dL Hct 26.1 L (37.2-46.3) % MCHC 29.5 L (32.0-37.0) g/dL RDW 19.1 H (11.5-14.5) % Immature Gran # 0.15 H (0.00-0.04) X 10*3/uL Neutrophils # 10.90 H (1.80-7.70) X 10*3/uL Monocytes # 1.06 H (0.20-1.00) X 10*3/uL Chloride 117 H (96-109) mmol/L Carbon Dioxide 15.6 L (20.0-27.5) mmol/L Anion Gap 6.40 L (10.00-18.00) mmol/L Creatinine 0.5 L (0.6-1.5) mg/dL BUN/Creatinine Ratio 50.20 H (12.00-20.00) Ratio POC Glucose (mg/dL) (75-99) mg/dL Calcium 8.1 L (8.7-10.3) mg/dL Microbiology - Last 24 Hours (Table) 10/08/21 06:19 Blood Culture - Preliminary Blood No Growth after 120 hours 10/10/21 16:45 Urine Culture - Final Urine,Voided Enterococcus faecium VRE Escherichia coli Assessment and Plan Assessment: Assessment and plan UTI with urosepsis -Most recent urine cultures growing VRE and ESBL E. coli -Consult infectious disease -Change antibiotics to Zosyn and daptomycin per culture and sensitivity report -Monitor WBC count -Urology consult taken for hydronephrosis on CT abdomen and pelvis. Acute kidney injury, improved -Prerenal -Improved with hydration and IV fluids -Continue holding nephrotoxic medications -Monitor BMP Hyperkalemia, resolved - Continue to monitor BMP Severe protein calorie malnutrition -Associated with pressure ulcers, present on admission and lower extremity edema -Dietitian consult following. Protein rich foods -Wound care consult and following Hypertension -Blood pressure is at goal -Home medication of losartan has been held due to a AGUSTÍN on presentation Insulin-dependent type 2 diabetes -Continue sliding scale insulin. Monitor blood sugars DVT prophylaxis with subcutaneous heparin and SCD Anticipated discharge back to skilled rehab. Continue PT OT evaluation and t reatment. Time with Patient: Greater than 30
[2021-10-13] MEDS: HYDROPHILIC CREAM 180 GM TUBE TOPICAL SCH (11:12)
[2021-10-13 12:26] LABS: Glucose,Whole Blood 111 mg/dL (75-99)
[2021-10-13] MEDS: ERTAPENEM 1 GM in SODIUM CHLORIDE 0.9% 50 ML IVPB SCH (16:37)
[2021-10-13 17:06] LABS: Glucose,Whole Blood 133 mg/dL (75-99)
[2021-10-13 21:15] LABS: Glucose,Whole Blood 115 mg/dL (75-99)
[2021-10-13] MEDS: ASPIRIN 81 MG PO SCH (21:34)
[2021-10-13] MEDS: ATORVASTATIN 40 MG TAB PO SCH (21:34)
--- NOTE | 2021-10-13 23:33 | P.CONS ---
History of Present Illness - Reason for Consult Consult date: 10/13/21 VRE UTI with sepsis Requesting physician: William Mcgill - Chief Complaint weakness and low hemoglobin x 1 day - History of Present Illness Patient is 71-year-old female with a past medical history significant for type 2 diabetes mellitus hypertension atrial fibrillation CVA TIA bedbound state [facility] patient was sent to the ER on 10/07/2021 after the patient was noticed to have low hemoglobin of 5.91 at the [facility] patient did have a history of recurrent UTI and apparently recently treated with oral doxycycline for VRE UTI tract infection patient on presentation to the hospital was afebrile and no fever had been recorded subsequently patient did have a normal white count on admission of 10.2 however the right one is trending up and is up to 14.08 today patient did have a normal creatinine he did have a positive UA C. difficile was negative urine done on 312 was positive for procidentia and patient was treated with Zosyn however repeat urine done on 10/10/2021 showing a VRE and ESBL E. coli infectious disease was consulted for further management of antibiotic therapy most information has been obtained from review the chart as the patient herself was elevated good historian did not answer any question patient did have a CT of abdominal pelvis completed on 10/12/2021 which shows mild hydronephrosis and hydroureter mildly dilated gallbladder with stones urology has seen the patient and recommending no work-up Review of Systems Positive points has been mentioned in HPI complete review could not be obtained because of his underlying mental status Past Medical History Past Medical History: Atrial Fibrillation, CVA/TIA, Diabetes Mellitus, Hypertension Additional Past Medical History / Comment(s): CVA with slight R sided weakne ss/past aphasia/dysphagia but staff at [facility] states this is not a current problem, IDDM type II, neuropathy bilateral feet, chronic cervical pain/DDD, back pain, UTIs, muscle weakness, past metabolic encephalopathy and acute kidney failure. History of Any Multi-Drug Resistant Organisms: VRE Year Discovered:: 10/10/21 MDRO Source:: VRE URINE Additional Past Surgical History / Comment(s): Gallbladder drain per pt. Past Anesthesia/Blood Transfusion Reactions: No Reported Reaction Past Psychological History: No Psychological Hx Reported Additional Psychological History / Comment(s): Pt resides at [facility]. She feeds herself. She is on a regular diet, can swallow pills whole but will snap larger pills in half. She is a alisa lift to wheelchair where she will sit for one hour then wants to go back to bed. She is incontinent at times. Smoking Status: Never smoker Past Alcohol Use History: None Reported Past Drug Use History: None Reported - Past Family History Mother Family Medical History: No Reported History Additional Family Medical History / Comment(s): Mother was healthy Father Family Medical History: Cancer Additional Family Medical History / Comment(s): Prostate cancer. Medications and Allergies Home Medications Medication Instructions Recorded Confirmed Type Aspirin 81 mg PO HS 08/30/21 10/07/21 History Atorvastatin [Lipitor] 40 mg PO HS@199908/30/21 10/07/21 History Cyanocobalamin [Vitamin B-12] 500 mcg PO HS 08/30/21 10/07/21 History Dermaceptin 1 applic TOPICAL TID 08/30/21 10/07/21 History Febuxostat [Uloric] 80 mg PO DAILY 08/30/21 10/07/21 History Ferrous Sulfate [Iron (65 MG 325 mg PO HS 08/30/21 10/07/21 History Elemental)] INSULIN ASPART (NovoLOG) [NovoLOG See Protocol SQ QID@07,11,16,20 08/30/21 10/07/21 History (formulary)] Magnesium Hydroxide [Milk of 2,400 mg PO DAILY PRN 08/30/21 10/07/21 History Magnesia] Menthol [Biofreeze] 1 applic TOPICAL BID 08/30/21 10/07/21 History Metoprolol Tartrate [Lopressor] 50 mg PO TID@0700,1300,1900 08/30/21 10/07/21 History Povidone-Iodine [Betadine] 1 applic TOPICAL HS 08/30/21 10/07/21 History Prostat 30 ml PO DAILY 08/30/21 10/07/21 History Sennosides [Senna] 8.6 mg PO DAILY PRN 08/30/21 10/07/21 History Acetaminophen Tab [Tylenol] 650 mg PO Q6HR PRN tab 09/04/21 10/07/21 Rx Losartan [Cozaar] 25 mg PO DAILY #6 tab 09/04/21 10/07/21 Rx Doxycycline Monohydrate 100 mg PO BID 10/07/21 10/07/21 History Fluconazole [Diflucan] 100 mg PO ONCE 10/07/21 10/07/21 History Health Shake 1 can PO BID 10/07/21 10/07/21 History Magnesium Oxide [Mag-Ox] 400 mg PO HS 10/07/21 10/07/21 History Omeprazole 20 mg PO DAILY 10/07/21 10/07/21 History Potassium Chloride [Potassium 10 meq PO DAILY 10/07/21 10/07/21 History Chloride ER] Tamsulosin [Flomax] 0.4 mg PO HS 10/07/21 10/07/21 History Allergies Allergy/AdvReac Type Severity Reaction Status Date / Time codeine Allergy Unknown Verified 10/07/21 21:11 morphine Allergy Unknown Verified 10/07/21 21:11 Penicillins Allergy Unknown Verified 10/07/21 21:11 Physical Exam Vitals: Vital Signs Temp Pulse Resp BP Pulse Ox 10/13/21 08:00 97.7 F 90 16 121/72 100 10/13/21 02:00 97.8 F 81 15 135/71 97 10/12/21 21:42 98.0 F 83 17 135/71 98 10/12/21 19:42 18 10/12/21 18:08 97.7 F 78 18 125/73 97 10/12/21 14:00 98.1 F 81 16 149/78 99 Intake and Output 10/12/21 10/13/21 10/13/21 22:59 06:59 14:59 Output Total 800 400 Balance -800 -400 Output: Urine 800 400 Other: Voiding Method Indwelling Catheter Indwelling Catheter # Bowel Movements 1 GENERAL DESCRIPTION: Elderly female lying in bed, no distress. No tachypnea or accessory muscle of respiration use. HEENT: Shows Pallor , no scleral icterus. Oral mucous membrane is dry. No pharyngeal erythema or thrush NECK: Trachea central, no thyromegaly. LUNGS: Unlabored breathing. Clear to auscultation anteriorly. No wheeze or crackle. HEART: S1, S2, regular rate and rhythm. No loud murmur ABDOMEN: Soft, no tenderness , guarding or rigidity, no organomegaly EXTREMITIES: 2+ edema of feet. SKIN: No rash, no masses palpable. NEUROLOGICAL: The patient is lethargic but arousable Results CBC & Chem 7: 10/13/21 06:00 10/13/21 06:00 Labs: Abnormal Lab Results - Last 24 Hours (Table) 10/12/21 10/12/21 10/13/21 Range/Units 16:58 20:29 06:00 WBC 14.08 H (4.50-10.00) X 10*3/uL RBC 2.85 L (4.10-5.20) X 10*6/uL Hgb 7.7 L (12.0-15.0) g/dL Hct 26.1 L (37.2-46.3) % MCHC 29.5 L (32.0-37.0) g/dL RDW 19.1 H (11.5-14.5) % Immature Gran # 0.15 H (0.00-0.04) X 10*3/uL Neutrophils # 10.90 H (1.80-7.70) X 10*3/uL Monocytes # 1.06 H (0.20-1.00) X 10*3/uL Chloride (96-109) mmol/L Carbon Dioxide (20.0-27.5) mmol/L Anion Gap (10.00-18.00) mmol/L Creatinine (0.6-1.5) mg/dL BUN/Creatinine Ratio (12.00-20.00) Ratio POC Glucose (mg/dL) 194 H 106 H (75-99) mg/dL Calcium (8.7-10.3) mg/dL 10/13/21 10/13/21 Range/Units 06:00 12:25 WBC (4.50-10.00) X 10*3/uL RBC (4.10-5.20) X 10*6/uL Hgb (12.0-15.0) g/dL Hct (37.2-46.3) % MCHC (32.0-37.0) g/dL RDW (11.5-14.5) % Immature Gran # (0.00-0.04) X 10*3/uL Neutrophils # (1.80-7.70) X 10*3/uL Monocytes # (0.20-1.00) X 10*3/uL Chloride 117 H (96-109) mmol/L Carbon Dioxide 15.6 L (20.0-27.5) mmol/L Anion Gap 6.40 L (10.00-18.00) mmol/L Creatinine 0.5 L (0.6-1.5) mg/dL BUN/Creatinine Ratio 50.20 H (12.00-20.00) Ratio POC Glucose (mg/dL) 111 H (75-99) mg/dL Calcium 8.1 L (8.7-10.3) mg/dL Microbiology - Last 24 Hours (Table) 10/10/21 16:45 Urine Culture - Final Urine,Voided Enterococcus faecium VRE Escherichia coli 10/08/21 06:19 Blood Culture - Preliminary Blood No Growth after 120 hours Assessment and Plan (1) UTI (urinary tract infection) Current Visit: Yes Status: Acute Code(s): N39.0 - URINARY TRACT INFECTION, SITE NOT SPECIFIED SNOMED Code(s): 33764350 Plan: 1patient with history of recurrent urine tract infection in this patient did have a CT abdominal pelvis showing mild right-sided hydronephrosis with a question of possible bladder outlet obstruction urology has seen the patient now with urine showing a VRE and ESBL E. coli 2-discontinue Zosyn 3-continue with the daptomycin however we will add Invanz 1 g daily 4-we will consider short course of IV antibiotic therapy in view of the complicated history on discharge for which a midline should be placed We will follow on clinical condition and cultures to further adjust medication if needed Thank you for this consultation will follow this patient along with you Time with Patient: Greater than 30
[2021-10-14] MEDS: HEPARIN SODIUM,PORCINE/PF 5,000 UNIT/0.5 ML SYRINGE SQ SCH ×3 (00:38→16:36)
[2021-10-14] MEDS ORDERED: IPRATROPIUM-ALBUTEROL 3 ML NEB INHALATION PRN (01:34)
[2021-10-14] MEDS ORDERED: IPRATROPIUM-ALBUTEROL 3 ML NEB ONE (01:35)
[2021-10-14 01:46] LABS: Glucose,Whole Blood 123 mg/dL (75-99)
--- NOTE | 2021-10-14 02:21 | XR ---
EXAMINATION TYPE: XR chest 1V portable DATE OF EXAM: 10/14/2021 COMPARISON: 08/31/2021 HISTORY: Hypoxemia TECHNIQUE: Aspiration FINDINGS: There is poor inspiration. There is infiltrate and atelectasis at both lung bases. There is mild pulmonary congestion. IMPRESSION: There is evidence for congestive heart failure with bilateral lower lobe pneumonia and at electasis which is worse than last exam.
[2021-10-14 06:52] LABS: Glucose,Whole Blood 114 mg/dL (75-99)
[2021-10-14] MEDS: INSULIN ASPART (NovoLOG) 100 UNIT/ML VIAL SQ SCH ×4 (07:51→20:52)
--- NOTE | 2021-10-14 08:15 | CT ---
EXAMINATION TYPE: CT abdomen pelvis wo con DATE OF EXAM: 10/14/2021 HISTORY: Stool output in urinary tract CT DLP: 1237.1 mGycm. Automated Exposure Control for Dose Reduction was Utilized. TECHNIQUE: CT scan of the abdomen and pelvis is performed without oral or IV contrast. COMPARISON: CT abdomen and pelvis 3 days earlier FINDINGS: Within the limitations of a non-contrast study, the following observations are made. Exam suboptimal due to artifact from overlying left upper extremity. LUNG BASES: Persistent at least small right greater than left pleural effusions with associated compr essive atelectasis. Coronary artery calcifications and/or stents are partially imaged. Lipomatous hyp ertrophy of the intra-arterial septum again seen. LIVER/GB: Persistent dilated gallbladder with distended margins and multiple dependent large intralum inal gallstones. PANCREAS: No significant abnormality is seen. SPLEEN: No significant abnormality is seen. ADRENALS: Stable 1.7 cm left adrenal mass with Hounsfield units averaging near to favoring benign lip id rich adenoma axial image 27. KIDNEYS: No renal calculi seen bilaterally. Possible mild right-sided pyelocaliectasis is less promin ent from prior. No hydroureter. Vargas catheter redemonstrated within urinary bladder with incomplete evacuation and air-fluid level along with internal debris similar to prior. BOWEL: Suboptimal evaluation without enteric contrast. No suspicious small or large bowel dilatation. Some diverticula in the redundant sigmoid colon are redemonstrated. There is persistent horizontal f luid collection or less likely bowel loop with air-fluid level just above the urinary bladder axial i mage 63 has extension into the left infracolic gutter measuring approximately 9.5 x 4.1 cm correlatin g with recent CT axial image 114 with indistinct fat plane this from the bladder. It is di fficult this collection from small bowel loops superior to this with indistinct fat planes and mild fat stranding. Incidental normal appearing appendix extending inferiorly from the cecum. GENITAL ORGANS: Anteverted uterus. LYMPH NODES: No greater than 1cm abdominal or pelvic lymph nodes are appreciated. OSSEOUS STRUCTURES: Multilevel vacuum disc phenomenon and disc space narrowing. Persistent mild heigh t loss along the superior L2 vertebra. Persistent focal spurring and disc space narrowing L1-L2 level . Moderate axial joint space loss both hips. OTHER: Atherosclerotic change of aorta with more prominent calcified plaque in smaller branch vessels redemonstrated. Mild to moderate diffuse subcutaneous edema greatest in the pelvis is redemonstrated . IMPRESSION: Suboptimal study without enteric contrast. 1. Persistent debris filled bladder with air-fluid level despite Vargas catheter placement. Just super ior to this there is a moderate to large size horizontal fluid collection with air-fluid level suspic ious for abscess likely has fistula tract to the bladder given symptoms of stool output from Vargas ca theter. There is poor fat plane separation from adjacent superior small bowel loops likely reflecting ongoing fistulous communication. Surgical exploration is likely warranted. 2. Gallstones within the dilated gallbladder worrisome for acute cholecystitis redemonstrated. No significant change in findings from most recent CT.
[2021-10-14] MEDS: METOPROLOL TARTRATE 50 MG TAB PO SCH ×3 (08:43→20:22)
[2021-10-14] MEDS: ERTAPENEM 1 GM in SODIUM CHLORIDE 0.9% 50 ML IVPB SCH (08:47)
[2021-10-14] MEDS: HYDROPHILIC CREAM 180 GM TUBE TOPICAL SCH (08:47)
--- NOTE | 2021-10-14 10:14 | P.PN ---
Subjective Progress Note Date: 10/14/21 We are asked to see the patient for urine infection in urine retention. The patient had a CAT scan of the abdomen yesterday identifying a colovesical fistula which would explain the urine retention. This appears to be due to a diverticular abscess. General surgery is seen the patient. Objective - Vital Signs Vital signs: Vital Signs Temp 98.5 F 10/14/21 07:20 Pulse 101 H 10/14/21 07:20 Resp 20 10/14/21 07:20 BP 112/70 10/14/21 07:20 Pulse Ox 100 10/14/21 07:20 Intake & Output 10/13/21 10/14/21 10/14/21 18:59 06:59 18:59 Output Total 600 Balance -600 Output: Urine 600 Other: Voiding Method Indwelling Catheter Indwelling Catheter - Labs CBC & Chem 7: 10/13/21 06:00 10/13/21 06:00 Labs: Abnormal Lab Results - Last 24 Hours (Table) 10/13/21 10/13/21 10/13/21 Range/Units 12:25 17:05 21:13 POC Glucose (mg/dL) 111 H 133 H 115 H (75-99) mg/dL 10/14/21 10/14/21 Range/Units 01:30 06:51 POC Glucose (mg/dL) 123 H 114 H (75-99) mg/dL Microbiology - Last 24 Hours (Table) 10/08/21 06:19 Blood Culture - Final Blood No Growth after 144 hours 10/10/21 16:45 Urine Culture - Final Urine,Voided Enterococcus faecium VRE Escherichia coli
[2021-10-14] MEDS ORDERED: FUROSEMIDE 10 MG/ML 4 ML VIAL IV STA (10:57)
--- NOTE | 2021-10-14 11:00 | P.PN ---
Subjective Progress Note Date: 10/14/21 Patient is quite sleepy, does not participate well with interview today. Computed tomography scan of the abdomen/pelvis noted diverticular abscess with colovesicular fistula, gallbladder disease. She does have gross stool coming out of her Oreilly catheter. Urology is aware. Gen. surgery was consulted, case discussed with them, plan for operating room tomorrow for colovesicular fistula, bowel resection, abscess drainage, cholecystectomy, diverting colostomy. Gen: awake, lethargic HEENT: normocephalic, atraumatic, good hearing acuity, moist mucous membranes Resp: good air exchange, breathing comfortably with no accessory muscle use CVS: good distal perfusion x 4, GI: soft, NTTP, ND : no SPT, no CVAT, oreilly catheter is present MSK: no pitting edema, no clubbing Neuro: non-focal, moving all extremities Assessment/plan: Sepsis secondary to computed UTI Colovesicular fistula Cholecystitis -Most recent urine cultures growing VRE and ESBL E. coli -Consult infectious disease -Change antibiotics to Zosyn and daptomycin per culture and sensitivity report -Monitor WBC count -Urology consult taken for hydronephrosis on CT abdomen and pelvis. -General Surgery consulted, plan for OR on 10/15 Acute kidney injury, improved -Prerenal -Improved with hydration and IV fluids -Continue holding nephrotoxic medications -Monitor BMP Hyperkalemia, resolved - Continue to monitor BMP Severe protein calorie malnutrition -Associated with pressure ulcers, present on admission and lower extremity edema -Dietitian consult following. Protein rich foods -Wound care consult and following Hypertension -Blood pressure is at goal -Home medication of losartan has been held due to a AGUSTÍN on presentation Insulin-dependent type 2 diabetes -Continue sliding scale insulin. Monitor blood sugars DVT prophylaxis with subcutaneous heparin and SCD Anticipated discharge back to skilled rehab. Continue PT OT evaluation and treatment. Objective - Vital Signs Vital signs: Vital Signs Temp 98.5 F 10/14/21 07:20 Pulse 101 H 10/14/21 07:20 Resp 20 10/14/21 07:20 BP 112/70 10/14/21 07:20 Pulse Ox 100 10/14/21 07:20 Intake & Output 10/13/21 10/14/21 10/14/21 18:59 06:59 18:59 Output Total 600 Balance -600 Output: Urine 600 Other: Voiding Method Indwelling Catheter Indwelling Catheter Indwelling Catheter - Labs CBC & Chem 7: 10/13/21 06:00 10/13/21 06:00 Labs: Abnormal Lab Results - Last 24 Hours (Table) 10/13/21 10/13/21 10/13/21 Range/Units 12:25 17:05 21:13 POC Glucose (mg/dL) 111 H 133 H 115 H (75-99) mg/dL 10/14/21 10/14/21 Range/Units 01:30 06:51 POC Glucose (mg/dL) 123 H 114 H (75-99) mg/dL Microbiology - Last 24 Hours (Table) 10/08/21 06:19 Blood Culture - Final Blood No Growth after 144 hours 10/10/21 16:45 Urine Culture - Final Urine,Voided Enterococcus faecium VRE Escherichia coli
--- NOTE | 2021-10-14 11:12 | P.GSCN ---
History of Present Illness Consult date: 10/14/21 Reason for Consult: Colovesical fistula History of present illness: This is a 71-year-old female who was noted to have stool in her Vargas catheter bag today. Patient underwent computed tomography scan which shows evidence of a diverticular abscess with possible colovesical fistula. Patient also has a grossly abnormal gallbladder which was enlarged with large gallstones within it. Patient is unable to give any significant medical history. She appears had a stroke approximately 3 months ago. Past Medical History Past Medical History: Atrial Fibrillation, CVA/TIA, Diabetes Mellitus, Hypertension Additional Past Medical History / Comment(s): CVA with slight R sided weak ness/past aphasia/dysphagia but staff at [facility] states this is not a current problem, IDDM type II, neuropathy bilateral feet, chronic cervical pain/DDD, back pain, UTIs, muscle weakness, past metabolic encephalopathy and acute kidney failure. History of Any Multi-Drug Resistant Organisms: VRE Year Discovered:: 10/10/21 MDRO Source:: VRE URINE Additional Past Surgical History / Comment(s): Gallbladder drain per pt. Past Anesthesia/Blood Transfusion Reactions: No Reported Reaction Past Psychological History: No Psychological Hx Reported Additional Psychological History / Comment(s): Pt resides at [facility]. She feeds herself. She is on a regular diet, can swallow pills whole but will snap larger pills in half. She is a alisa lift to wheelchair where she will sit for one hour then wants to go back to bed. She is incontinent at times. Smoking Status: Never smoker Past Alcohol Use History: None Reported Past Drug Use History: None Reported - Past Family History Mother Family Medical History: No Reported History Additional Family Medical History / Comment(s): Mother was healthy Father Family Medical History: Cancer Additional Family Medical History / Comment(s): Prostate cancer. Medications and Allergies Home Medications Medication Instructions Recorded Confirmed Type Aspirin 81 mg PO HS 08/30/21 10/07/21 History Atorvastatin [Lipitor] 40 mg PO HS@2000 08/30/21 10/07/21 History Cyanocobalamin [Vitamin B-12] 500 mcg PO HS 08/30/21 10/07/21 History Dermaceptin 1 applic TOPICAL TID 08/30/21 10/07/21 History Febuxostat [Uloric] 80 mg PO DAILY 08/30/21 10/07/21 History Ferrous Sulfate [Iron (65 MG 325 mg PO HS 08/30/21 10/07/21 History Elemental)] INSULIN ASPART (NovoLOG) [NovoLOG See Protocol SQ QID@07,11,16,20 08/30/21 10/07/21 History (formulary)] Magnesium Hydroxide [Milk of 2,400 mg PO DAILY PRN 08/30/21 10/07/21 History Magnesia] Menthol [Biofreeze] 1 applic TOPICAL BID 08/30/21 10/07/21 History Metoprolol Tartrate [Lopressor] 50 mg PO TID@0700,1300,1900 08/30/21 10/07/21 History Povidone-Iodine [Betadine] 1 applic TOPICAL HS 08/30/21 10/07/21 History Prostat 30 ml PO DAILY 08/30/21 10/07/21 History Sennosides [Senna] 8.6 mg PO DAILY PRN 08/30/21 10/07/21 History Acetaminophen Tab [Tylenol] 650 mg PO Q6HR PRN tab 09/04/21 10/07/21 Rx Losartan [Cozaar] 25 mg PO DAILY #6 tab 09/04/21 10/07/21 Rx Doxycycline Monohydrate 100 mg PO BID 10/07/21 10/07/21 History Fluconazole [Diflucan] 100 mg PO ONCE 10/07/21 10/07/21 History Health Shake 1 can PO BID 10/07/21 10/07/21 History Magnesium Oxide [Mag-Ox] 400 mg PO HS 10/07/21 10/07/21 History Omeprazole 20 mg PO DAILY 10/07/21 10/07/21 History Potassium Chloride [Potassium 10 meq PO DAILY 10/07/21 10/07/21 History Chloride ER] Tamsulosin [Flomax] 0.4 mg PO HS 10/07/21 10/07/21 History Allergies Allergy/AdvReac Type Severity Reaction Status Date / Time codeine Allergy Unknown Verified 10/07/21 21:11 morphine Allergy Unknown Verified 10/07/21 21:11 Penicillins Allergy Unknown Verified 10/07/21 21:11 Surgical - Exam Vital Signs Temp Pulse Resp BP Pulse Ox 98.1 F 83 16 124/61 97 10/07/21 15:58 10/07/21 15:58 10/07/21 15:58 10/07/21 15:58 10/07/21 15:58 - General no distress - Eyes PERRL - ENT normal pinna - Neck no masses - Respiratory normal expansion - Cardiovascular Rhythm: regular - Abdomen Abdomen: soft, non tender Results - Labs 10/13/21 06:00 10/13/21 06:00 Abnormal Lab Results - Last 24 Hours (Table) 10/13/21 10/13/21 10/13/21 Range/Units 12:25 17:05 21:13 POC Glucose (mg/dL) 111 H 133 H 115 H (75-99) mg/dL 10/14/21 10/14/21 Range/Units 01:30 06:51 POC Glucose (mg/dL) 123 H 114 H (75-99) mg/dL Microbiology - Last 24 Hours (Table) 10/08/21 06:19 Blood Culture - Final Blood No Growth after 144 hours 10/10/21 16:45 Urine Culture - Final Urine,Voided Enterococcus faecium VRE Escherichia coli Assessment and Plan Plan: Colovesical fistula with a large amount of stool output. Patient will need to undergo exploratory laparotomy with diverting colostomy and possible sigmoid resection. She may ulcer require cholecystectomy. I discussed this with her patient advocate. Patient was scheduled for surgery tomorrow. The medical team will be optimizing her today.
[2021-10-14 11:44] LABS: Glucose,Whole Blood 142 mg/dL (75-99)
[2021-10-14] MEDS: ALBUMIN HUMAN 25% 50 ML in EMPTY BAG 1 BAG IVPB SCH ×5 (12:19→20:36)
[2021-10-14 12:46] LABS: Partial Thromboplastin Time 27.1 sec (22.0-30.0); Prothrombin Time 11.3 sec (9.0-12.0)
[2021-10-14 12:47] LABS: African American GFR (CKD) >90 (>60 ml/min/1.73 sqM); Anion Gap 4 mmol/L; Blood Urea Nitrogen 27 mg/dL (7-17); Calcium 8.1 mg/dL (8.4-10.2); Carbon Dioxide 14 mmol/L (22-30); Chloride 121 mmol/L (98-107); Glucose 125 mg/dL (74-99); Magnesium 1.7 mg/dL (1.6-2.3); Non-African American GFR(CKD) 90 (>60 ml/min/1.73 sqM); Potassium 3.9 mmol/L (3.5-5.1); Sodium 139 mmol/L (137-145)
[2021-10-14 14:00] LABS: Anisocytosis Slight; Basophils % (A) 0 %; Eosinophils % (A) 0 %; HCT 27.2 % (34.0-46.0); Hypochromasia Marked; Lymphocytes # (A) 1.5 k/uL (1.0-4.8); Lymphocytes % (A) 8 %; MCHC 29.3 g/dL (31.0-37.0); MCV 95.8 fL (80.0-100.0); Macrocytosis Slight; Monocytes # (A) 0.5 k/uL (0-1.0); Monocytes % (A) 3 %; Neutrophils # (A) 17.2 k/uL (1.3-7.7); Neutrophils % (A) 88 %; Platelet Count 216 k/uL (150-450); RBC 2.84 m/uL (3.80-5.40); RDW 18.3 % (11.5-15.5); WBC 19.4 k/uL (3.8-10.6)
[2021-10-14 14:12] LABS: HGB 7.9 gm/dL (11.4-16.0)
[2021-10-14 16:26] LABS: Glucose,Whole Blood 129 mg/dL (75-99)
[2021-10-14] MEDS ORDERED: LORazepam 2 MG/ML INJ IV STA (20:14)
[2021-10-14] MEDS: ASPIRIN 81 MG PO SCH (20:22)
[2021-10-14] MEDS: ATORVASTATIN 40 MG TAB PO SCH (20:22)
[2021-10-14] MEDS: FUROSEMIDE 10 MG/ML 4 ML VIAL IV SCH (20:42)
[2021-10-14 20:44] LABS: Glucose,Whole Blood 118 mg/dL (75-99)
--- NOTE | 2021-10-14 23:40 | P.PN ---
Subjective Progress Note Date: 10/14/21 Principal diagnosis: Complicated urinary tract infection, pelvic abscess Patient is 71 year old female with a past medical history significant for recurrent UTI admitted to the hospital with weakness with urine culture showing ESBL E. coli and VRE repeat CAT scan suspicious for pelvic abscess and possible colovesical fistula. On today's evaluation that is 10/14/2021 the patient is afebrile the patient remains to be lethargic and did not answer any question no vomiting diarrhea or any other changes reported by the nursing staff Objective - Vital Signs Vital signs: Vital Signs Temp 98.5 F 10/14/21 07:20 Pulse 108 H 10/14/21 12:00 Resp 20 10/14/21 07:20 BP 112/70 10/14/21 07:20 Pulse Ox 100 10/14/21 07:20 Intake & Output 10/13/21 10/14/21 10/14/21 18:59 06:59 18:59 Output Total 600 Balance -600 Output: Urine 600 Other: Voiding Method Indwelling Catheter Indwelling Catheter Indwelling Catheter - Exam GENERAL DESCRIPTION: An elderly female lying in bed in no distress RESPIRATORY SYSTEM: Unlabored breathing , decreased breath sounds at bases HEART: S1 S2 regular rate and rhythm , ABDOMEN: Soft , no tenderness EXTREMITIES: No edema feet - Labs CBC & Chem 7: 10/14/21 11:56 10/14/21 11:56 Labs: Abnormal Lab Results - Last 24 Hours (Table) 10/13/21 10/13/21 10/14/21 Range/Units 17:05 21:13 01:30 WBC (3.8-10.6) k/uL RBC (3.80-5.40) m/uL Hgb (11.4-16.0) gm/dL Hct (34.0-46.0) % MCHC (31.0-37.0) g/dL RDW (11.5-15.5) % Neutrophils # (1.3-7.7) k/uL Chloride (98-107) mmol/L Carbon Dioxide (22-30) mmol/L BUN (7-17) mg/dL Glucose (74-99) mg/dL POC Glucose (mg/dL) 133 H 115 H 123 H (75-99) mg/dL Calcium (8.4-10.2) mg/dL 10/14/21 10/14/21 10/14/21 Range/Units 06:51 11:43 11:56 WBC 19.4 H (3.8-10.6) k/uL RBC 2.84 L (3.80-5.40) m/uL Hgb 7.9 L D (11.4-16.0) gm/dL Hct 27.2 L (34.0-46.0) % MCHC 29.3 L (31.0-37.0) g/dL RDW 18.3 H (11.5-15.5) % Neutrophils # 17.2 H (1.3-7.7) k/uL Chloride (98-107) mmol/L Carbon Dioxide (22-30) mmol/L BUN (7-17) mg/dL Glucose (74-99) mg/dL POC Glucose (mg/dL) 114 H 142 H (75-99) mg/dL Calcium (8.4-10.2) mg/dL 10/14/21 Range/Units 11:56 WBC (3.8-10.6) k/uL RBC (3.80-5.40) m/uL Hgb (11.4-16.0) gm/dL Hct (34.0-46.0) % MCHC (31.0-37.0) g/dL RDW (11.5-15.5) % Neutrophils # (1.3-7.7) k/uL Chloride 121 H (98-107) mmol/L Carbon Dioxide 14 L (22-30) mmol/L BUN 27 H (7-17) mg/dL Glucose 125 H (74-99) mg/dL POC Glucose (mg/dL) (75-99) mg/dL Calcium 8.1 L (8.4-10.2) mg/dL Microbiology - Last 24 Hours (Table) 10/08/21 06:19 Blood Culture - Final Blood No Growth after 144 hours 10/10/21 16:45 Urine Culture - Final Urine,Voided Enterococcus faecium VRE Escherichia coli Assessment and Plan (1) UTI (urinary tract infection) Current Visit: Yes Status: Acute Code(s): N39.0 - URINARY TRACT INFECTION, SITE NOT SPECIFIED SNOMED Code(s): 95519559 Plan: 1patient with history of recurrent urine tract infection in this patient did have a CT abdominal pelvis showing mild right-sided hydronephrosis with a quest ion of possible bladder outlet obstruction , with a repeat CAT scan suspicious for a pelvic abscess and possible colovesical fistula 2-general surgery has been consulted possible surgery tomorrow recommend obtaining a deep pelvic culture at the time of surgery 3-continue the patient on Invanz and daptomycin Time with Patient: Less than 30
[2021-10-15] MEDS: HEPARIN SODIUM,PORCINE/PF 5,000 UNIT/0.5 ML SYRINGE SQ SCH ×3 (00:46→15:30)
[2021-10-15 07:21] LABS: Glucose,Whole Blood 80 mg/dL (75-99)
[2021-10-15] MEDS: ERTAPENEM 1 GM in SODIUM CHLORIDE 0.9% 50 ML IVPB SCH (09:49)
[2021-10-15] MEDS: METOPROLOL TARTRATE 50 MG TAB PO SCH ×2 (09:58→15:30)
[2021-10-15] MEDS: INSULIN ASPART (NovoLOG) 100 UNIT/ML VIAL SQ SCH ×3 (09:58→15:30)
[2021-10-15] MEDS: HYDROPHILIC CREAM 180 GM TUBE TOPICAL SCH (09:58)
--- NOTE | 2021-10-15 10:32 | P.PN ---
Subjective Progress Note Date: 10/15/21 Patient is sleepy again today, does not participate well with interview. Yesterday had GoC conversation with her and family friend at bedside, and patient relayed her wish to be DNR/DNI after some time for contemplation. She also declined surgery to be outside her GoC. Pt and family reflecting on [facility] they would like hospice. Gen: awake, lethargic HEENT: normocephalic, atraumatic, good hearing acuity, moist mucous membranes Resp: good air exchange, breathing comfortably with no accessory muscle use CVS: good distal perfusion x 4, GI: soft, NTTP, ND : no SPT, no CVAT, oreilly catheter is present MSK: no pitting edema, no clubbing Neuro: non-focal, moving all extremities Assessment/plan: Sepsis secondary to computed UTI Colovesicular fistula Cholecystitis -Most recent urine cultures growing VRE and ESBL E. coli -Consult infectious disease -Change antibiotics to Zosyn and daptomycin per culture and sensitivity report -Monitor WBC count -Urology consult taken for hydronephrosis on CT abdomen and pelvis. -General Surgery consulted, plan for OR on 10/15 -Hospice consulted 10/15 Acute kidney injury, improved -Prerenal -Improved with hydration and IV fluids -Continue holding nephrotoxic medications -Monitor BMP Hyperkalemia, resolved - Continue to monitor BMP Severe protein calorie malnutrition -Associated with pressure ulcers, present on admission and lower extremity edema -Dietitian consult following. Protein rich foods -Wound care consult and following Hypertension -Blood pressure is at goal -Home medication of losartan has been held due to a AGUSTÍN on presentation Insulin-dependent type 2 diabetes -Continue sliding scale insulin. Monitor blood sugars DVT prophylaxis with subcutaneous heparin and SCD Anticipated discharge back to skilled rehab. Continue PT OT evaluation and treatment. Objective - Vital Signs Vital signs: Vital Signs Temp 97.4 F L 10/15/21 07:56 Pulse 95 10/15/21 07:56 Resp 24 10/15/21 07:56 BP 148/62 10/15/21 07:56 Pulse Ox 99 10/15/21 07:56 Intake & Output 10/14/21 10/15/21 10/15/21 18:59 06:59 18:59 Other: Voiding Method Indwelling Catheter Indwelling Catheter # Voids 6 - Labs CBC & Chem 7: 10/14/21 11:56 10/14/21 11:56 Labs: Abnormal Lab Results - Last 24 Hours (Table) 10/14/21 10/14/21 10/14/21 Range/Units 11:43 11:56 11:56 WBC 19.4 H (3.8-10.6) k/uL RBC 2.84 L (3.80-5.40) m/uL Hgb 7.9 L D (11.4-16.0) gm/dL Hct 27.2 L (34.0-46.0) % MCHC 29.3 L (31.0-37.0) g/dL RDW 18.3 H (11.5-15.5) % Neutrophils # 17.2 H (1.3-7.7) k/uL Chloride 121 H (98-107) mmol/L Carbon Dioxide 14 L (22-30) mmol/L BUN 27 H (7-17) mg/dL Glucose 125 H (74-99) mg/dL POC Glucose (mg/dL) 142 H (75-99) mg/dL Calcium 8.1 L (8.4-10.2) mg/dL 10/14/21 10/14/21 Range/Units 16:25 20:18 WBC (3.8-10.6) k/uL RBC (3.80-5.40) m/uL Hgb (11.4-16.0) gm/dL Hct (34.0-46.0) % MCHC (31.0-37.0) g/dL RDW (11.5-15.5) % Neutrophils # (1.3-7.7) k/uL Chloride (98-107) mmol/L Carbon Dioxide (22-30) mmol/L BUN (7-17) mg/dL Glucose (74-99) mg/dL POC Glucose (mg/dL) 129 H 118 H (75-99) mg/dL Calcium (8.4-10.2) mg/dL Microbiology - Last 24 Hours (Table) 10/08/21 06:19 Blood Culture - Final Blood No Growth after 144 hours
--- NOTE | 2021-10-15 10:45 | P.PN ---
Progress Note - Text Progress Note Date: 10/15/21 The patient's caregiver has decided to not have surgery at this time. There is some discussion whether or not the patient will be made hospice. On exam vital signs are stable. Abdomen is soft. There is still stool in her Vargas bag. Patient will be observed at this point.
[2021-10-15] MEDS: ALBUMIN HUMAN 25% 50 ML in EMPTY BAG 1 BAG IVPB SCH ×2 (10:59→11:53)
[2021-10-15 11:39] LABS: Glucose,Whole Blood 96 mg/dL (75-99)
[2021-10-15 12:44] LABS: African American GFR (CKD) 105.5 (60.0-200.0); Anion Gap 11.4 mmol/L (10.00-18.00); BUN/Creat Ratio 40.17 Ratio (12.00-20.00); Blood Urea Nitrogen 24.1 mg/dL (9.0-27.0); Calcium 8.6 mg/dL (8.7-10.3); Carbon Dioxide 14.6 mmol/L (20.0-27.5); Magnesium 1.6 mg/dL (1.5-2.4); Non-African American GFR(CKD) 91.1 (60.0-200.0)
[2021-10-15] MEDS: FUROSEMIDE 10 MG/ML 4 ML VIAL IV SCH (12:55)
[2021-10-15 12:58] LABS: HCT 21.1 % (37.2-46.3); MCH 27.1 pg (27.0-32.0); MCHC 29.4 g/dL (32.0-37.0); MCV 92.1 fL (80.0-97.0); Mean Platelet Volume 10.2 fL (9.5-12.2); NRBC Per 100 WBC 0 /100 WBCS (0.0-0.0); Platelet Count 354 X 10*3/uL (140-440); RBC 2.29 X 10*6/uL (4.10-5.20); RDW 19.8 % (11.5-14.5); WBC 11.29 X 10*3/uL (4.50-10.00)
[2021-10-15 13:52] LABS: Basophils # (A) 0.02 X 10*3/uL (0.00-0.10); Basophils % (A) 0.2 %; Eosinophils # (A) 0.14 X 10*3/uL (0.04-0.35); Eosinophils % (A) 1.2 %; Immature Grans, Automated 0.4 %; Lymphocytes # (A) 1.48 X 10*3/uL (0.90-5.00); Lymphocytes % (A) 13.1 %; Monocytes # (A) 0.84 X 10*3/uL (0.20-1.00); Monocytes % (A) 7.4 %; Neutrophils # (A) 8.76 X 10*3/uL (1.80-7.70); Neutrophils % (A) 77.7 %
[2021-10-15 14:27] VITALS: BP 149/78; PULSE 131; RESP 32; TEMP 96.4
[2021-10-15] MEDS ORDERED: ARTIFICIAL TEARS-HYPROMELLOSE DROPS 15 ML BTL BOTH EYES PRN (16:05)
[2021-10-15] MEDS ORDERED: DRY MOUTH SPRAY 44.3 SPRAY/44.3 ML SPRAY MUCOUS MEM PRN (16:05)
[2021-10-15] MEDS ORDERED: HYDROmorphone 1 MG/ML 1 ML SYRINGE IVP PRN (16:05)
[2021-10-15] MEDS ORDERED: METOCLOPRAMIDE 5 MG/ML 2 ML VIAL IVP PRN (16:05)
[2021-10-15] MEDS ORDERED: LORazepam 2 MG/ML INJ IV PRN (16:05)
[2021-10-15] MEDS ORDERED: ATROPINE OPHTH SOLN 1% 5ML BTL SUBLINGUAL PRN (16:05)
[2021-10-15] MEDS ORDERED: GLYCOPYRROLATE 0.2 MG/ML 2 ML VIAL IVP PRN (16:05)
[2021-10-15] MEDS ORDERED: DIPHENOX-ATROP 2.5-0.025MG/5ML 60 ML BOTTLE PO PRN (16:05)
[2021-10-15] MEDS ORDERED: ONDANSETRON 4 MG/2 ML VIAL IVP PRN (16:05)
--- NOTE | 2021-10-15 16:15 | P.PN ---
Progress Note - Text Progress Note Date: 10/15/21 Advance Care Planning Document On 10/14 had a conversation with Lien Farris as well as her microwave radio technician Johny at bedside for 46 minutes [id number] time given her serious medical condition of sepsis secondary to large diverticular abscess causing colovesicular fistula as well as the high risk surgery required to treat that. In light of our conversation, given her general poor condition of severe protein calorie malnutrition with an albumin of 1.5, patient had opted to change her CODE STATUS from full code to no code, and had decided to forego any operation. I took great care to explain to her thoroughly the chance of tracheostomy and PEG tube in the future should she even make it through the surgery and the days following which would require ICU level care. Patient did not seem interested in prolonged ICU/Hospital course. She did require an extra night to think about whether or not she would want hospice, and on 10/15 patient was transitioned to hospice/comfort care. The hospice team reached out to me because although they, and I received verbal consent to proceed with hospice care, they could not provide any orders for this patient until they had a written consent in the chart per their protocol. Therefore, I'm starting this patient on comfort medications until we can transition care to the hospice team presumably tomorrow once again get her caregiver to sign a written consent.
[2021-10-15] MEDS ORDERED: SCOPOLAMINE 1.5MG/72HR PATCH TRANSDERM SCH (17:00)
--- NOTE | 2021-10-15 23:52 | P.PN ---
Subjective Progress Note Date: 10/15/21 Principal diagnosis: Complicated urinary tract infection, pelvic abscess Patient is 71 year old female with a past medical history significant for recurrent UTI admitted to the hospital with weakness with urine culture showing ESBL E. coli and VRE repeat CAT scan suspicious for pelvic abscess and possible colovesical fistula. On today's evaluation that is 10/15/2021 the patient remains to be afebrile the patient is lethargic and did not answer any question no vomiting diarrhea or any other changes reported by the nursing staff His Objective - Vital Signs Vital signs: Vital Signs Temp 97.4 F L 10/15/21 07:56 Pulse 95 10/15/21 07:56 Resp 24 10/15/21 07:56 BP 148/62 10/15/21 07:56 Pulse Ox 99 10/15/21 07:56 Intake & Output 10/14/21 10/15/21 10/15/21 18:59 06:59 18:59 Other: Voiding Method Indwelling Catheter Indwelling Catheter # Voids 6 - Exam GENERAL DESCRIPTION: An elderly female lying in bed in no distress RESPIRATORY SYSTEM: Unlabored breathing , decreased breath sounds at bases HEART: S1 S2 regular rate and rhythm , ABDOMEN: Soft , no tenderness EXTREMITIES: No edema feet - Labs CBC & Chem 7: 10/15/21 04:20 10/15/21 04:20 Labs: Abnormal Lab Results - Last 24 Hours (Table) 10/14/21 10/14/21 10/14/21 Range/Units 11:56 11:56 16:25 WBC 19.4 H (3.8-10.6) k/uL RBC 2.84 L (3.80-5.40) m/uL Hgb 7.9 L D (11.4-16.0) gm/dL Hct 27.2 L (34.0-46.0) % MCHC 29.3 L (31.0-37.0) g/dL RDW 18.3 H (11.5-15.5) % Neutrophils # 17.2 H (1.3-7.7) k/uL Potassium (3.5-5.5) mmol/L Chloride 121 H (98-107) mmol/L Carbon Dioxide 14 L (22-30) mmol/L BUN 27 H (7-17) mg/dL BUN/Creatinine Ratio (12.00-20.00) Ratio Glucose 125 H (74-99) mg/dL POC Glucose (mg/dL) 129 H (75-99) mg/dL Calcium 8.1 L (8.4-10.2) mg/dL 10/14/21 10/15/21 Range/Units 20:18 04:20 WBC (3.8-10.6) k/uL RBC (3.80-5.40) m/uL Hgb (11.4-16.0) gm/dL Hct (34.0-46.0) % MCHC (31.0-37.0) g/dL RDW (11.5-15.5) % Neutrophils # (1.3-7.7) k/uL Potassium 3.0 L (3.5-5.5) mmol/L Chloride 117 H (98-107) mmol/L Carbon Dioxide 14.6 L (22-30) mmol/L BUN (7-17) mg/dL BUN/Creatinine Ratio 40.17 H (12.00-20.00) Ratio Glucose (74-99) mg/dL POC Glucose (mg/dL) 118 H (75-99) mg/dL Calcium 8.6 L (8.4-10.2) mg/dL Assessment and Plan (1) UTI (urinary tract infection) Status: Acute Code(s): N39.0 - URINARY TRACT INFECTION, SITE NOT SPECIFIED SNOMED Code(s): 53926867 Plan: 1patient with history of recurrent urine tract infection in this patient did have a CT abdominal pelvis showing mild right-sided hydronephrosis with a question of possible bladder outlet obstruction , with a repeat CAT scan suspicious for a pelvic abscess and possible colovesical fistula 2-general surgery has been consulted possible surgery however the patient family seems to be leaning toward hospice oriented care 3-continue the patient on Invanz and daptomycin however antibiotics can be discontinued once patient is discharged to hospice Time with Patient: Less than 30
[2021-10-16 08:25] LABS: HGB 6.2 g/dL (12.0-15.0)
--- NOTE | 2021-10-16 10:50 | P.DS ---
Providers Date of admission: 10/08/21 00:32 Expected date of discharge: 10/16/21 Attending physician: Elliott Jennings MD Consults: 10/12/21 12:11 Consult Physician Routine Consulting Provider: Vu Cee Consult Reason/Comments: Hydronephrosis Do you want consulting provider notified?: Yes 10/13/21 07:39 Consult Physician Routine Consulting Provider: Lester Abdi Consult Reason/Comments: VRE UTI with sepsis, help with antibiotic selection Do you want consulting provider notified?: Yes 10/14/21 07:18 Consult Physician Routine Consulting Provider: Ernie Cooley Consult Reason/Comments: Stool output in urinary tract Do you want consulting provider notified?: Yes 10/15/21 09:08 Consult Physician Routine Consulting Provider: [facility] Consult Reason/Comments: doesn't want surgery Do you want consulting provider notified?: Yes Primary care physician: Physician Nonstaff Hospital Course: Discharge Diagnosis: Complicated UTI wtih sepsis and colovesicular fistula CHolecystitis AGUSTÍN hyperkalemia Severe protein calorie malnutrition HTN Insulin dependent diabetes Acute Blood Loss Anemia Hospital Course: Patient is a 71-year-old female with a history of A. 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 Patient was admitted and provided with resuscitation. She was ultimately found have a urinary tract infection and was placed on IV antibiotics. Urine cultures showed procidentia. She was followed by urology and infectious disease. CT abdomen and pelvis demonstrated mild hydronephrosis and hydroureter that could relate to chronic bladder outlet obstruction as well as a markedly dilated gallbladder and pleural effusions. Urology felt that her hydroureter was possibly due to incomplete bladder emptying. A Vargas catheter was placed which then started to produce feculent material. CT abdomen and pelvis was repeated and showed debris filled bladder with air fluid levels, moderate to large horizontal fluid collection suspicious for abscess and fistulous tract to the bladder. General surgery was consulted and offered an exploratory laparotomy with diverting colostomy and possible sigmoid resection. After much discussion with her property caretaker is they decided against surgery and the patient ultimately went hospice. Patient was admitted to hospice on 10/15/21. A total of 25 minutes of time were spent preparing this complex discharge summary. Patient Condition at Discharge: Fair Plan - Discharge Summary Discharge Rx Participant: No New Discharge Prescriptions: No Action Sennosides [Senna] 8.6 mg PO DAILY PRN PRN Reason: Constipation INSULIN ASPART (NovoLOG) [NovoLOG (formulary)] See Protocol SQ QID@07,,16,20 Metoprolol Tartrate [Lopressor] 50 mg PO TID@0700,1300,1900 Febuxostat [Uloric] 80 mg PO DAILY Ferrous Sulfate [Iron (65 MG Elemental)] 325 mg PO HS Cyanocobalamin [Vitamin B-12] 500 mcg PO HS Aspirin 81 mg PO HS Dermaceptin 1 applic TOPICAL TID Health Shake 1 can PO BID Fluconazole [Diflucan] 100 mg PO ONCE Magnesium Oxide [Mag-Ox] 400 mg PO HS Potassium Chloride [Potassium Chloride ER] 10 meq PO DAILY Tamsulosin [Flomax] 0.4 mg PO HS Povidone-Iodine [Betadine] 1 applic TOPICAL HS Menthol [Biofreeze] 1 applic TOPICAL BID Atorvastatin [Lipitor] 40 mg PO HS@1999 Prostat 30 ml PO DAILY Magnesium Hydroxide [Milk of Magnesia] 2,400 mg PO DAILY PRN PRN Reason: Constipation Acetaminophen Tab [Tylenol] 650 mg PO Q6HR PRN tab PRN Reason: Mild Pain Or Fever > 100.5 Losartan [Cozaar] 25 mg PO DAILY #6 tab Doxycycline Monohydrate 100 mg PO BID Omeprazole 20 mg PO DAILY Discharge Medication List Aspirin 81 mg PO HS 08/30/21 [History] Atorvastatin [Lipitor] 40 mg PO HS@199908/30/21 [History] Cyanocobalamin [Vitamin B-12] 500 mcg PO HS 08/30/21 [History] Dermaceptin 1 applic TOPICAL TID 08/30/21 [History] Febuxostat [Uloric] 80 mg PO DAILY 08/30/21 [History] Ferrous Sulfate [Iron (65 MG Elemental)] 325 mg PO HS 08/30/21 [History] INSULIN ASPART (NovoLOG) [NovoLOG (formulary)] See Protocol SQ QID@07,,16,20 08/30/21 [History] Magnesium Hydroxide [Milk of Magnesia] 2,400 mg PO DAILY PRN 08/30/21 [History] Menthol [Biofreeze] 1 applic TOPICAL BID 08/30/21 [History] Metoprolol Tartrate [Lopressor] 50 mg PO TID@0700,1300,1900 08/30/21 [History] Povidone-Iodine [Betadine] 1 applic TOPICAL HS 08/30/21 [History] Prostat 30 ml PO DAILY 08/30/21 [History] Sennosides [Senna] 8.6 mg PO DAILY PRN 08/30/21 [History] Acetaminophen Tab [Tylenol] 650 mg PO Q6HR PRN tab 09/04/21 [Rx] Losartan [Cozaar] 25 mg PO DAILY #6 tab 09/04/21 [Rx] Doxycycline Monohydrate 100 mg PO BID 10/07/21 [History] Fluconazole [Diflucan] 100 mg PO ONCE 10/07/21 [History] Health Shake 1 can PO BID 10/07/21 [History] Magnesium Oxide [Mag-Ox] 400 mg PO HS 10/07/21 [History] Omeprazole 20 mg PO DAILY 10/07/21 [History] Potassium Chloride [Potassium Chloride ER] 10 meq PO DAILY 10/07/21 [History] Tamsulosin [Flomax] 0.4 mg PO HS 10/07/21 [History] Follow up Appointment(s)/Referral(s): [facility], [NON-STAFF] - As Needed Nonstaff,Physician [Primary Care Provider] - 1-2 days Discharge Disposition: OTHER INSTITUTION NOT DEFINED
--- NOTE | 2021-10-18 09:04 | CDI ---
Documentation Clarification Form Date: 09/28/21 From: Linh Robles Admit Date: 10/08/2021 12:32:00 AM Patient Name: Lien Farris Visit Number: [id number] Discharge Date: 10/15/2021 08:19:00 PM ATTENTION: The Clinical Documentation Specialists (CDI) and [facility] Coding Staff appreciate your assistance in clarifying documentation. Please respond to the clarification below the line at the bottom and electronically sign. The CDI & [facility] Coding staff will review the response and follow-up if needed. Please note: Queries are made part of the Legal Health Record. If you have any questions, please contact the author of this message via ITS. Dr. Joanne Montalvo, Your patient has the documented symptom of Altered Mental Status in the ED Note, Dr. Cee's consult and Dr Abdi's consult. Additional clarification regarding the etiology/cause of this symptom is requested. History/Risk Factors: CVA w slight R sided weakness/past aphasia/dysphagia, Type II DM, recurrent UTIs Clinical Indicators: Limitations: altered mental status, physical limitations. Patient is a 71-year-old female with a past medical history significant for CVA/TIA currently bedbound, type 2 diabetes, hypertension, and atrial fibrillation who presents to the emergency department via ambulance from [facility] due to critically low hemoglobin. Patient is minimally verbal due to stroke and her friend Nenita speaks on her behalf at bedside. Labs: WBC 11.6, HGB 8.6, HCT 28.7, Neutrophils 9.3, NA 136, K 5.3, Chloride 112, CO2 18, BUN 75, Cr 1.55, Alkaline Phosphatase 142 3/12 CT: There is mild hydronephrosis and hydroureter that could relate to chronic bladder outlet obstruction. Markedly dilated gallbladder with large gallstones. No dilated ducts. Pleural effusions and lower lobe pulmonary infiltrates and atelectasis. Congestive heart failure is possible. Treatment: IV fluids, IV antibiotics Please clarify the etiology of the symptom of Altered Mental Status: [ ] [Insert type of encephalopathy] Encephalopathy due to [insert cause of encephalopathy] [ ] Delirium (specify cause): [ ] Dementia (if know, specify Type and if with/without Behavioral Disturbance) [ ] Other condition (please specify) [ ] Unable to determine Delirium - due to sepsis MTDD
== END 2021-10-15 20:19 | disposition hospice, inpatient (51) | DRG 689 ==
LOC: EC 15:51 → 4SSUR 20:28 → OBSVTOIN 10-08 00:32
PROVIDERS: ADMIT Internal Medicine; ATTEND Internal Medicine
PROC: 05HD33Z Insertion of Infusion Device into Right Cephalic Vein, Percutaneous Approach (ICD-10-PCS; principal; 2021-10-13 14:45)
DX: N13.6 Pyonephrosis (principal); A41.81 Sepsis due to Enterococcus; E43 Unspecified severe protein-calorie malnutrition; K57.81 Diverticulitis of intestine, part unspecified, with perforation and abscess with bleeding; F05 Delirium due to known physiological condition; J90 Pleural effusion, not elsewhere classified; I69.351 Hemiplegia and hemiparesis following cerebral infarction affecting right dominant side; D62 Acute posthemorrhagic anemia; L97.429 Non-pressure chronic ulcer of left heel and midfoot with unspecified severity; N32.1 Vesicointestinal fistula; Z16.12 Extended spectrum beta lactamase (ESBL) resistance; Z16.24 Resistance to multiple antibiotics; Z16.21 Resistance to vancomycin; N17.9 Acute kidney failure, unspecified; L89.152 Pressure ulcer of sacral region, stage 2; D63.8 Anemia in other chronic diseases classified elsewhere; K81.9 Cholecystitis, unspecified; L89.622 Pressure ulcer of left heel, stage 2; E11.40 Type 2 diabetes mellitus with diabetic neuropathy, unspecified; E11.621 Type 2 diabetes mellitus with foot ulcer; E11.622 Type 2 diabetes mellitus with other skin ulcer; I48.91 Unspecified atrial fibrillation; Z79.4 Long term (current) use of insulin; Z66 Do not resuscitate; Z51.5 Encounter for palliative care; R62.7 Adult failure to thrive; E87.5 Hyperkalemia; E86.0 Dehydration; I69.320 Aphasia following cerebral infarction; I69.391 Dysphagia following cerebral infarction; N73.9 Female pelvic inflammatory disease, unspecified; I10 Essential (primary) hypertension; R13.10 Dysphagia, unspecified; N32.0 Bladder-neck obstruction; R32 Unspecified urinary incontinence; G89.29 Other chronic pain; M50.30 Other cervical disc degeneration, unspecified cervical region; M54.9 Dorsalgia, unspecified; R19.7 Diarrhea, unspecified; Z68.30 Body mass index [BMI] 30.0-30.9, adult; Z79.82 Long term (current) use of aspirin; Z79.899 Other long term (current) drug therapy; Z74.01 Bed confinement status; Z87.440 Personal history of urinary (tract) infections; Z71.3 Dietary counseling and surveillance; Z88.5 Allergy status to narcotic agent; Z88.0 Allergy status to penicillin; Z80.42 Family history of malignant neoplasm of prostate
CPT/HCPCS: 36410; 36415; 71045; 74176; 76937; 80048; 80053; 81001; 82272; 83036; 83735; 83880; 84134; 85025; 85027; 85610; 85730; 86850; 86900; 86901; 87040; 87077; 87086; 87186; 87324; 94640; 94760; 96361; 96374; 99285

== ENCOUNTER 2021-10-15 19:45 | Inpatient (IN) | payer MEDICAID ==
[2021-10-15] MEDS ORDERED: DIPHENOX-ATROP 2.5-0.025MG/5ML 60 ML BOTTLE PO PRN (19:59)
[2021-10-15] MEDS ORDERED: ONDANSETRON 4 MG/2 ML VIAL IVP PRN (19:59)
[2021-10-15] MEDS ORDERED: ACETAMINOPHEN SUPPOSITORY 650 MG SUPP RECTAL PRN (19:59)
[2021-10-15] MEDS ORDERED: GLYCOPYRROLATE 0.2 MG/ML 2 ML VIAL IVP PRN (19:59)
[2021-10-15] MEDS ORDERED: LORazepam 2 MG/ML INJ IV PRN (19:59)
[2021-10-15] MEDS ORDERED: DRY MOUTH SPRAY 44.3 SPRAY/44.3 ML SPRAY MUCOUS MEM PRN (19:59)
[2021-10-15] MEDS ORDERED: IPRATROPIUM-ALBUTEROL 3 ML NEB INHALATION PRN (20:08)
[2021-10-16 07:45] LABS: Glucose,Whole Blood 86 mg/dL (75-99)
[2021-10-16] MEDS ORDERED: SCOPOLAMINE 1.5MG/72HR PATCH TRANSDERM SCH (08:00)
--- NOTE | 2021-10-16 08:23 | P.HPIM ---
History of Present Illness H&P Date: 10/16/21 (delayed charting seen at 0745) Chief Complaint: colovesicular fistula Patient is a 71-year-old female with a history of A. 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 Patient was admitted and provided with resuscitation. She was ultimately found have a urinary tract infection and was placed on IV antibiotics. Urine cultures showed multiple bacteria. She was followed by urology and infectious disease. CT abdomen and pelvis demonstrated mild hydronephrosis and hydroureter that could relate to chronic bladder outlet obstruction as well as a markedly dilated gallbladder and pleural effusions. Urology felt that her hydroureter was possibly due to incomplete bladder emptying. A Vargas catheter was placed which then started to produce feculent material. CT abdomen and pelvis was repeated and showed debris filled bladder with air fluid levels, moderate to large horizontal fluid collection suspicious for abscess and fistulous tract to the bladder. General surgery was consulted and offered an exploratory laparotomy with diverting colostomy and possible sigmoid resection. After much discussion with her alteration specialist is they decided against surgery and the patient ultimately went hospice. Patient was admitted to hospice on 10/15/21. She is allergic to morphine and was started on dilaudid. No family present at bedside. All information obtained from chart review from recent hospital stay 10/08/21-10/16/21 as patient is unresponsive. General: non toxic, no distress, appears at stated age Derm: warm, dry Head: atraumatic, normocephalic, symmetric Eyes:PERRL, anicteric sclera ENT: Nose and ears atraumatic Neck: No thyromegaly, no cervical lymphadenopathy, trachea midline, supple Mouth: no lip lesion, mucus membranes moist Cardiovascular: S1S2 tachy, no murmur, positive posterior tibial pulse bilateral, no edema, capillary refill less >2 seconds Lungs: Course bs bilateral, no ronchi, no rales, no wheeze, no accessory muscle use Abdominal: soft, nontender to palpation, no guarding, no appreciable organomegaly, normal bowel sounds Ext: + gross muscle atrophy, no contractures Neuro: no tremors, + cough, + gag Psych: somnolent, moans to physocal stimuli Assessmnet/plan: Complicated UTI with sepsis and colovesicular fistula Cholecystitis AGUSTÍN hyperkalemia Severe protein calorie malnutrition HTN Insulin dependent diabetes Acute Blood Loss Anemia Continue with Dilaudid, Ativan, and robinol. Add scopalamie patch. Continue with hospice. Active Medications Acetaminophen (Acetaminophen Suppository 650 Mg Supp) 650 mg RECTAL Q4HR PRN PRN Reason: Fever and/or Mild Pain Albuterol/Ipratropium (Ipratropium-Albuterol 3 Ml Neb) 3 ml INHALATION RT-Q4H PRN PRN Reason: Dyspnea Atropine Sulfate (Atropine Ophth Soln 1% 5ml Btl) 2 drops SUBLINGUAL Q4HR PRN PRN Reason: Excess Secretions Last Admin: 10/16/21 09:09 Dose: 2 drops Documented by: Diphenoxylate HCl/Atropine (Diphenox-Atrop 2.5-0.025mg/5ml 60 Ml Bottle) 5 ml PO QID PRN PRN Reason: Loose Stool Glycopyrrolate (Glycopyrrolate 0.2 Mg/Ml 2 Ml Vial) 0.1 mg IVP Q6HR PRN PRN Reason: Excess Secretions Last Admin: 10/15/21 22:56 Dose: 0.1 mg Documented by: Hydromorphone HCl (Hydromorphone 1 Mg/Ml 1 Ml Syringe) 1 mg IVP Q2HR PRN PRN Reason: Moderate Pain Lorazepam (Lorazepam 2 Mg/Ml Inj) 1 mg IV Q6HR PRN PRN Reason: Anxiety Last Admin: 10/15/21 22:59 Dose: 1 mg Documented by: Ondansetron HCl (Ondansetron 4 Mg/2 Ml Vial) 4 mg IVP Q8HR PRN PRN Reason: Nausea/emesis Last Admin: 10/15/21 22:55 Dose: 4 mg Documented by: Saliva Substitute (Dry Mouth [place] 44.3 [place]/44.3 Ml [place]) 1 spray MUCOUS MEM QID PRN PRN Reason: Dry Mouth Scopolamine (Scopolamine 1.5mg/72hr Patch) 1 patch TRANSDERM Q72H ERIN Last Admin: 10/16/21 09:08 Dose: 1 patch Documented by: Past Medical History Past Medical History: Atrial Fibrillation, CVA/TIA, Diabetes Mellitus, Hypertension Additional Past Medical History / Comment(s): CVA with slight R sided weakness/past aphasia/dysphagia but staff at [facility] states this is not a current problem, IDDM type II, neuropathy bilateral feet, chronic cervical pain/DDD, back pain, UTIs, muscle weakness, past metabolic encephalopathy and acute kidney failure. History of Any Multi-Drug Resistant Organisms: VRE Date of last positivie culture/infection: 10/10/21 MDRO Source:: VRE URINE Additional Past Surgical History / Comment(s): Gallbladder drain per pt. Past Anesthesia/Blood Transfusion Reactions: No Reported Reaction Past Psychological History: No Psychological Hx Reported Additional Psychological History / Comment(s): Pt resides at [facility]. She feeds herself. She is on a regular diet, can swallow pills whole but will snap larger pills in half. She is a alisa lift to wheelchair where she will sit for one hour then wants to go back to bed. She is incontinent at times. Smoking Status: Never smoker Past Alcohol Use History: None Reported Past Drug Use History: None Reported - Past Family History Mother Family Medical History: No Reported History Additional Family Medical History / Comment(s): Mother was healthy Father Family Medical History: Cancer Additional Family Medical History / Comment(s): Prostate cancer. Medications and Allergies Home Medications Medication Instructions Recorded Confirmed Type Aspirin 81 mg PO HS 08/30/21 10/15/21 History Atorvastatin [Lipitor] 40 mg PO HS@199908/30/21 10/15/21 History Cyanocobalamin [Vitamin B-12] 500 mcg PO HS 08/30/21 10/15/21 History Dermaceptin 1 applic TOPICAL TID 08/30/21 10/15/21 History Febuxostat [Uloric] 80 mg PO DAILY 08/30/21 10/15/21 History Ferrous Sulfate [Iron (65 MG 325 mg PO HS 08/30/21 10/15/21 History Elemental)] INSULIN ASPART (NovoLOG) [NovoLOG See Protocol SQ QID@07,11,16,08/30/21 10/15/21 History (formulary)] Magnesium Hydroxide [Milk of 2,400 mg PO DAILY PRN 08/30/21 10/15/21 History Magnesia] Menthol [Biofreeze] 1 applic TOPICAL BID 08/30/21 10/15/21 History Metoprolol Tartrate [Lopressor] 50 mg PO TID@0700,1300,1900 08/30/21 10/15/21 History Povidone-Iodine [Betadine] 1 applic TOPICAL HS 08/30/21 10/15/21 History Prostat 30 ml PO DAILY 08/30/21 10/15/21 History Sennosides [Senna] 8.6 mg PO DAILY PRN 08/30/21 10/15/21 History Acetaminophen Tab [Tylenol] 650 mg PO Q6HR PRN tab 09/04/21 10/15/21 Rx Losartan [Cozaar] 25 mg PO DAILY #6 tab 09/04/21 10/15/21 Rx Doxycycline Monohydrate 100 mg PO BID 10/07/21 10/15/21 History Fluconazole [Diflucan] 100 mg PO ONCE 10/07/21 10/15/21 History Health Shake 1 can PO BID 10/07/21 10/15/21 History Magnesium Oxide [Mag-Ox] 400 mg PO HS 10/07/21 10/15/21 History Omeprazole 20 mg PO DAILY 10/07/21 10/15/21 History Potassium Chloride [Potassium 10 meq PO DAILY 10/07/21 10/15/21 History Chloride ER] Tamsulosin [Flomax] 0.4 mg PO HS 10/07/21 10/15/21 History Allergies Allergy/AdvReac Type Severity Reaction Status Date / Time codeine Allergy Unknown Verified 10/15/21 20:43 morphine Allergy Unknown Verified 10/15/21 20:43 Penicillins Allergy Unknown Verified 10/15/21 20:43 Physical Exam Osteopathic Statement: *. No significant issues noted on an osteopathic structural exam other than those noted in the History and Physical/Consult. Vitals: Vital Signs Temp Pulse Resp BP Pulse Ox 10/16/21 08:00 98.2 F 109 H 18 150/80 96 10/16/21 03:37 98.3 F 17 97 10/16/21 02:00 97.6 F 100 20 150/84 97 Intake and Output 10/15/21 10/16/21 10/16/21 22:59 06:59 14:59 Output Total 350 Balance -350 Output: Urine 350 Other: Voiding Method Indwelling Catheter # Bowel Movements 2 Weight 90.718 kg
[2021-10-16] MEDS: ATROPINE OPHTH SOLN 1% 5ML BTL SUBLINGUAL PRN (09:09)
[2021-10-16 11:39] LABS: Glucose,Whole Blood 74 mg/dL (75-99)
[2021-10-16 16:42] LABS: Glucose,Whole Blood 71 mg/dL (75-99)
[2021-10-17] MEDS: ATROPINE OPHTH SOLN 1% 5ML BTL SUBLINGUAL PRN ×2 (05:57→19:57)
[2021-10-17] MEDS: HYDROmorphone 1 MG/ML 1 ML SYRINGE IVP PRN ×3 (05:58→19:57)
--- NOTE | 2021-10-17 14:38 | P.PN ---
Progress Note - Text Progress Note Date: 10/17/21 (delayed charting seen at 0945 ) Patient is a 71-year-old female with a history of A. fib not on anticoagulation, hypertension, insulin-dependent diabetes, and recent CVA resulting in bed ridden status who presented to the ER from medical [place] due to low hemoglobin and dehydration. Patient was admitted and provided with resuscitation. She was ultimately found have a urinary tract infection and was placed on IV antibiotics. Urine cultures showed multiple bacteria. She was followed by urology and infectious disease. CT abdomen and pelvis demonstrated mild hydronephrosis and hydroureter that could relate to chronic bladder outlet obstruction as well as a markedly dilated gallbladder and pleural effusions. Urology felt that her hydroureter was possibly due to incomplete bladder emptying. A Vargas catheter was placed which then started to produce feculent material. CT abdomen and pelvis was repeated and showed debris filled bladder with air fluid levels, moderate to large horizontal fluid collection suspicious for abscess and fistulous tract to the bladder. General surgery was consulted and offered an exploratory laparotomy with diverting colostomy and possible sigmoid resection. After much discussion with her machine precision etcher is they decided against surgery and the patient ultimately went hospice. Patient was admitted to hospice on 10/15/21. She is allergic to morphine and was started on dilaudid. No family present at bedside. Patient is unresponsive. General: non toxic, no distress, appears at stated age Derm: warm, dry Cardiovascular: S1S2 tachy, no murmur, positive posterior tibial pulse bilateral, no edema, capillary refill less >2 seconds Lungs: Course bs bilateral, no ronchi, no rales, no wheeze, no accessory muscle use Abdominal: soft, nontender to palpation, no guarding, no appreciable organomegaly, normal bowel sounds Ext: + gross muscle atrophy, no contractures Psych: somnolent, moans to physocal stimuli Assessmnet/plan: Complicated UTI with sepsis and colovesicular fistula Cholecystitis AGUSTÍN hyperkalemia Severe protein calorie malnutrition HTN Insulin dependent diabetes Acute Blood Loss Anemia Continue with Dilaudid- asked nursing to give a dose now, Ativan, and robinol. Add scopalamie patch. Continue with hospice.
[2021-10-17] MEDS: LORazepam 2 MG/ML INJ IV PRN (19:58)
[2021-10-18] MEDS: LORazepam 2 MG/ML INJ IV PRN ×2 (01:17→05:52)
[2021-10-18] MEDS: HYDROmorphone 1 MG/ML 1 ML SYRINGE IVP PRN ×2 (01:18→05:52)
[2021-10-18] MEDS: ATROPINE OPHTH SOLN 1% 5ML BTL SUBLINGUAL PRN (01:18)
[2021-10-18 05:52] VITALS: BP 66/29; PULSE 104; TEMP 97.4
[2021-10-18 08:15] VITALS: RESP 12
--- NOTE | 2021-10-18 15:53 | P.DS ---
Providers Date of admission: 10/15/21 20:20 Expected date of discharge: 10/18/21 Attending physician: Elliott Jennings MD Primary care physician: Physician Nonstaff Hospital Course: Discharge Diagnosis: Assessmnet/plan: Complicated UTI with sepsis and colovesicular fistula Cholecystitis AGUSTÍN hyperkalemia Severe protein calorie malnutrition HTN Insulin dependent diabetes Acute Blood Loss Anemia Hospital Course: Patient is a 71-year-old female with a history of A. fib not on anticoagulation, hypertension, insulin-dependent diabetes, and recent CVA resulting in bed ridden status who presented to the ER from medical [place] due to low hemoglobin and dehydration. Patient was admitted and provided with resuscitation. She was ultimately found have a urinary tract infection and was placed on IV antibiotics. Urine cultures showed multiple bacteria. She was followed by urology and infectious disease. CT abdomen and pelvis demonstrated mild hydronephrosis and hydroureter that could relate to chronic bladder outlet obstruction as well as a markedly dilated gallbladder and pleural effusions. Urology felt that her hydroureter was possibly due to incomplete bladder emptying. A Vargas catheter was placed which then started to produce feculent material. CT abdomen and pelvis was repeated and showed debris filled bladder with air fluid levels, moderate to large horizontal fluid collection suspicious for abscess and fistulous tract to the bladder. General surgery was consulted and offered an exploratory laparotomy with diverting colostomy and possible sigmoid resection. After much discussion with her glove turner is they decided against surgery and the patient ultimately went hospice. Patient was admitted to hospice on 10/15/21. Patient was made comfort care. She on 10/18/2021 had 0954 AM Cause of Sepsis secondary to UTI secondary to colovesicular fistula A total of [5] minutes of time were spent preparing this complex discharge expiration. Plan - Discharge Summary New Discharge Prescriptions: No Action Sennosides [Senna] 8.6 mg PO DAILY PRN PRN Reason: Constipation INSULIN ASPART (NovoLOG) [NovoLOG (formulary)] See Protocol SQ QID@07,11,16,20 Metoprolol Tartrate [Lopressor] 50 mg PO TID@0700,1300,1900 Febuxostat [Uloric] 80 mg PO DAILY Ferrous Sulfate [Iron (65 MG Elemental)] 325 mg PO HS Cyanocobalamin [Vitamin B-12] 500 mcg PO HS Aspirin 81 mg PO HS Dermaceptin 1 applic TOPICAL TID Health Shake 1 can PO BID Fluconazole [Diflucan] 100 mg PO ONCE Magnesium Oxide [Mag-Ox] 400 mg PO HS Potassium Chloride [Potassium Chloride ER] 10 meq PO DAILY Tamsulosin [Flomax] 0.4 mg PO HS Povidone-Iodine [Betadine] 1 applic TOPICAL HS Menthol [Biofreeze] 1 applic TOPICAL BID Atorvastatin [Lipitor] 40 mg PO HS@1999 Prostat 30 ml PO DAILY Magnesium Hydroxide [Milk of Magnesia] 2,400 mg PO DAILY PRN PRN Reason: Constipation Acetaminophen Tab [Tylenol] 650 mg PO Q6HR PRN tab PRN Reason: Mild Pain Or Fever > 100.5 Losartan [Cozaar] 25 mg PO DAILY #6 tab Doxycycline Monohydrate 100 mg PO BID Omeprazole 20 mg PO DAILY Discharge Medication List Aspirin 81 mg PO HS 08/30/21 [History] Atorvastatin [Lipitor] 40 mg PO HS@199908/30/21 [History] Cyanocobalamin [Vitamin B-12] 500 mcg PO HS 08/30/21 [History] Dermaceptin 1 applic TOPICAL TID 08/30/21 [History] Febuxostat [Uloric] 80 mg PO DAILY 08/30/21 [History] Ferrous Sulfate [Iron (65 MG Elemental)] 325 mg PO HS 08/30/21 [History] INSULIN ASPART (NovoLOG) [NovoLOG (formulary)] See Protocol SQ QID@07,11,16,20 08/30/21 [History] Magnesium Hydroxide [Milk of Magnesia] 2,400 mg PO DAILY PRN 08/30/21 [History] Menthol [Biofreeze] 1 applic TOPICAL BID 08/30/21 [History] Metoprolol Tartrate [Lopressor] 50 mg PO TID@0700,1300,1900 08/30/21 [History] Povidone-Iodine [Betadine] 1 applic TOPICAL HS 08/30/21 [History] Prostat 30 ml PO DAILY 08/30/21 [History] Sennosides [Senna] 8.6 mg PO DAILY PRN 08/30/21 [History] Acetaminophen Tab [Tylenol] 650 mg PO Q6HR PRN tab 09/04/21 [Rx] Losartan [Cozaar] 25 mg PO DAILY #6 tab 09/04/21 [Rx] Doxycycline Monohydrate 100 mg PO BID 10/07/21 [History] Fluconazole [Diflucan] 100 mg PO ONCE 10/07/21 [History] Health Shake 1 can PO BID 10/07/21 [History] Magnesium Oxide [Mag-Ox] 400 mg PO HS 10/07/21 [History] Omeprazole 20 mg PO DAILY 10/07/21 [History] Potassium Chloride [Potassium Chloride ER] 10 meq PO DAILY 10/07/21 [History] Tamsulosin [Flomax] 0.4 mg PO HS 10/07/21 [History] Discharge Disposition: - Preliminary Cause of Preliminary Cause of : Sepsis
[2021-10-18] MEDS ORDERED: SCOPOLAMINE 1.5MG/72HR PATCH TRANSDERM SCH (18:00)
== END 2021-10-18 11:15 | disposition expired | DRG 951 ==
LOC: 4SSUR 20:20
PROVIDERS: ADMIT Internal Medicine; ATTEND Internal Medicine
DX: Z51.5 Encounter for palliative care (principal); A41.9 Sepsis, unspecified organism; E43 Unspecified severe protein-calorie malnutrition; N32.1 Vesicointestinal fistula; D62 Acute posthemorrhagic anemia; N17.9 Acute kidney failure, unspecified; N13.6 Pyonephrosis; J90 Pleural effusion, not elsewhere classified; M50.30 Other cervical disc degeneration, unspecified cervical region; Z66 Do not resuscitate; G89.29 Other chronic pain; E11.42 Type 2 diabetes mellitus with diabetic polyneuropathy; Z68.30 Body mass index [BMI] 30.0-30.9, adult; E86.0 Dehydration; E87.5 Hyperkalemia; F41.9 Anxiety disorder, unspecified; I10 Essential (primary) hypertension; I48.91 Unspecified atrial fibrillation; N32.0 Bladder-neck obstruction; R32 Unspecified urinary incontinence; K81.9 Cholecystitis, unspecified; Z74.01 Bed confinement status; Z79.4 Long term (current) use of insulin; Z79.82 Long term (current) use of aspirin; Z79.899 Other long term (current) drug therapy; Z86.73 Personal history of transient ischemic attack (TIA), and cerebral infarction without residual deficits; Z88.5 Allergy status to narcotic agent; Z93.3 Colostomy status; Z88.0 Allergy status to penicillin; Z87.440 Personal history of urinary (tract) infections